=== PATIENT | male | born 1940 | race Caucasian/White ===

== ENCOUNTER → 2018-05-26 13:44 | Outpatient (CLI) | payer MEDICARE, SELFPAY ==
--- NOTE | 2018-05-26 13:55 | CT_ITS ---
CT chest w con HISTORY: ITS.REASON: PULMONARY NODULE ORDERING PHYSICIAN: Subhash Grey MD PATIENT AGE: 77 years COMPARISON: None TECHNIQUE: Axial images obtained following the administration of 75 mL of Isovue 370 . Sagittal, and coronal reformatted images are also generated and reviewed. All CT scans at the facility use one or more dose reduction, viz: automated exposure control, ma/kV adjustment per patient size (including targeted exams where dose is matched to indication, i.e. head), or iterative reconstruction technique. FINDINGS: The left lobe of the thyroid gland is enlarged with heterogeneous enhancement. A nodular area is present at the isthmus measuring approximately 2.4 cm. Nodular enlargement involves the left lobe inferiorly at 3.4 cm x 4.2 cm. There are small nodules on the right. Scattered small lymph nodes present in the mediastinum and kings. Coronary artery calcifications are noted. Normal heart size. Minimal pericardial thickening anteriorly. There are scattered small nodes in the upper abdomen the celiac region. There are central lobular and paraseptal emphysematous changes. A noncalcified 6 mm nodule present in the right upper lobe. There are atelectatic or fibrotic changes in the right lung base. There is mild diffuse bronchial thickening. There is an irregular opacity in the left apex contiguous with the pleural surface and have a somewhat flat-like appearance which may be due to a pulmonary scar measuring up to 15 mm x 16 mm x 6 mm. Other area of scarring is present in the left upper lobe posteriorly. A calcified granulomas present in the left upper lobe. There are degenerative changes in the thoracic spine. No effusions. No infiltrates. IMPRESSION: 1. 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 2. 6 mm noncalcified right upper lobe nodule. There is evidence of old granulomatous disease 3. 15 mm irregular opacity in the left upper lobe which may be due to an area of scarring. Recommend [address] follow-up to confirm stability of the above-mentioned abnormality. 4. 4 cm left thyroid nodule with other smaller thyroid nodules noted. Please see ultrasound report for further description
--- NOTE | 2018-05-26 13:55 | US_ITS ---
US thyroid HISTORY: Follow-up thyroid nodule/goiter ITS.REASON: THYROID NODULE ORDERING PHYSICIAN: Subhash Grey MD PATIENT AGE: 77 years Comparison: 03/17/2013 FINDINGS: The right lobe measures 5 x 2.3 x 2.3 cm. 16 mm x 13 mm hypoechoic to isoechoic nodule with small cystic areas upper pole well-circumscribed. Unchanged 9 mm complex cystic nodule mid polar region unchanged. Just anterior to this is a 8 mm cystic nodule unchanged. Solid 22 x 16 mm isoechoic nodule in the lower pole unchanged The left lobe measures 5.7 x 3.3 x 2.7 cm Isoechoic 30 x 9 mm nodule upper pole unchanged 43 x 31 mm complex nodule solid with cystic component mid polar region unchanged. This would correspond to what was called the lower pole nodule on the CT scan. No new nodules evident. IMPRESSION: Multinodular goiter overall not significantly changed
== END ==
PROVIDERS: Family Provider Internal Medicine Adolescent Medicine; PCP Internal Medicine Adolescent Medicine; Visit Provider Internal Medicine Adolescent Medicine
DX: R91.1 Solitary pulmonary nodule (principal); E04.1 Nontoxic single thyroid nodule
CPT/HCPCS: 71260; 76536; Q9967

== ENCOUNTER → 2018-11-29 12:51 | Outpatient (CLI) | payer MEDICARE, SELFPAY ==
--- NOTE | 2018-11-29 13:08 | CT_ITS ---
CT chest w con HISTORY: Cough, former smoker, follow-up pulmonary nodule, COPD ITS.REASON: PULMONARY NODULES ORDERING PHYSICIAN: Subhash Grey MD PATIENT AGE: 78 years COMPARISON: 05/26/2018 TECHNIQUE: Axial images obtained following the administration of 75 mL of Optiray 350. Sagittal, and coronal reformatted images are also generated and reviewed. All CT scans at the facility use one or more dose reduction, viz: automated exposure control, ma/kV adjustment per patient size (including targeted exams where dose is matched to indication, i.e. head), or iterative reconstruction technique. FINDINGS: Left lobe of the thyroid gland is enlarged with decreased attenuation similar to the previous exam. Is mild tracheal shift to the right. There is low density in the left thyroid gland measures 3 x 2 cm in is consistent with a thyroid mass. A smaller lesion is present in the left lobe inferiorly and medially at 12 mm. Previous ultrasound showed bilateral thyroid nodules on 03/17/2013. No adenopathy apparent. There are coronary artery calcifications with normal heart size. No pericardial effusion. Centrilobular emphysema with scattered scarring noted. There is a stable 5 mm noncalcified nodule right upper lobe centrally. Atelectatic or fibrotic changes are present in the right lung base. Irregular parenchymal opacity once again noted in the left upper lobe posteriorly. This does not appear significantly changed and may represent an area of parenchymal fibrosis. Calcified granuloma is present in the left upper lobe posteriorly. No new nodules are evident. Upper abdominal images show a isodense lesion in the left hepatic lobe at 1 cm which appears stable. Stable left adrenal nodule is noted at 14 mm. There are degenerative changes in the thoracic spine with no acute bony anomalies evident. IMPRESSION: 1. Overall no significant change with no acute finding. 2. Stable left upper lobe irregular parenchymal opacity which may be due to pulmonary scar. Twelve-month follow-up recommended. Stable 4 mm right upper lobe nodule. 3. No change left thyroid mass with thyroid enlargement 4. Centrilobular emphysema/COPD
== END ==
PROVIDERS: PCP Internal Medicine Adolescent Medicine; Visit Provider Internal Medicine Adolescent Medicine
DX: R91.1 Solitary pulmonary nodule (principal)
CPT/HCPCS: 71260; Q9967

== ENCOUNTER → 2020-03-13 13:27 | Outpatient (CLI) | payer MEDICARE, SELFPAY ==
--- NOTE | 2020-03-13 13:41 | XR_ITS ---
PROCEDURE: XR SACROILIAC JOINT BI MIN 3V CLINICAL INDICATION: L HIP PAIN COMPARISON: No exams were available for comparison FINDINGS: The SI joints have an unremarkable appearance. No fusion or significant osteoarthritic change or lytic change evident. There is degenerative disc disease in the lower lumbar spine which may be better evaluated with lumbar spine study. IMPRESSION: Negative SI joints Dictated by: Lele Silvestre MD 03/13/2020 14:58 Electronically signed by Lele Silvestre MD in [facility] 03/13/2020 14:58
--- NOTE | 2020-03-13 13:43 | XR_ITS ---
PROCEDURE: XR HIP LT 2-3V W/PELVIS CLINICAL INDICATION: L HIP PAIN Left hip pain COMPARISON: No exams were available for comparison FINDINGS: No fracture or dislocation. No lytic or blastic change. There are mild osteoarthritic changes of the hips IMPRESSION: Mild osteoarthritis, no acute finding Dictated by: Lele Silvestre MD 03/13/2020 14:53 Electronically signed by Lele Silvestre MD in [facility] 03/13/2020 14:53
--- NOTE | 2020-03-13 13:43 | XR_ITS ---
PROCEDURE: XR CHEST 2V CLINICAL HISTORY: COUGH Former smoker COMPARISON: CHESTW CT chest w con from 11/29/2018 FINDINGS: Borderline emphysematous changes seen with mild hyperexpansion of the lung collins. There is minimal apical pleural scarring left side which was seen on the previous CT scan of the chest 11/29/2018. The lung collins otherwise are clear of active infiltrate. There is a stable calcified granuloma left midlung field. Cardiac size is normal and vascularity is normal and there is no pleural fluid. There are mild multilevel degenerate changes of the lower thoracic spine. IMPRESSION: Borderline COPD, no acute chest pathology noted Dictated by: Dr. Brooks Elizalde MD 03/13/2020 14:[address] Brooks Elizalde MD in [facility] 03/13/2020 14:26
[2020-03-13 14:13] LABS: Basophils # 0.1 K/mm3 (0-0.2); Eosinophils # 0.4 K/mm3 (0.0-0.4); Eosinophils % 4.6 % (0.1-12.0); Hematocrit 36.8 % (42.0-52.0); Hemoglobin 13.1 g/dL (14.1-18.0); Lymphocytes # 1.8 K/mm3 (0.7-4.5); Lymphocytes % 19.8 % (10-50); Mean Corpuscular HGB Conc 35.6 g/dL (31.8-35.4); Mean Corpuscular Volume 87.1 fl (80-94); Monocytes # 0.8 K/mm3 (0.1-1.0); Monocytes % 8.2 % (1.7-9.3); Neutrophils # 6.1 K/mm3 (1.8-7.8); Neutrophils % 66.5 % (37.0-80.0); Platelet Count 218 K/mm3 (142-424); Red Blood Count 4.23 M/mm3 (4.60-6.20); Red Cell Distribution Width 14.3 % (11.5-17.5); White Blood Count 9.2 K/mm3 (4.8-10.8)
[2020-03-13 14:45] LABS: Alanine Aminotransferase 25 U/L (12-78); Albumin Level 4.2 g/dl (3.5-5.0); Albumin/Globulin Ratio 1.6 (1.1-1.8); Alkaline Phosphatase 95 U/L (38-126); Aspartate Amino Transferase 17 U/L (17-59); Bilirubin,Total 0.5 mg/dl (0.2-1.3); Blood Urea Nitrogen 24 mg/dl (9-20); Calcium 9.8 mg/dl (8.4-10.2); Carbon Dioxide 29 mmol/L (22.0-30.0); Chloride 101 mmol/L (98-107); Estimated Glomerular Filt Rate 94 ml/min (>60); GFR (African American) 113 ML/MIN (>60); Globulin 2.6 g/dL (1.3-3.2); Glucose 121 mg/dl (74-100); Sodium 140 mmol/L (136-145); Total Protein,Serum 6.8 g/dl (6.3-8.2)
[2020-03-13 14:50] LABS: Erythrocyte Sedimentation Rate 27 mm/hr (0-20)
[2020-03-13 17:14] LABS: Hemoglobin A1C 8.6 % (4.0-6.0)
== END ==
PROVIDERS: Visit Provider Internal Medicine Adolescent Medicine
DX: E11.9 Type 2 diabetes mellitus without complications (principal); R05 Cough; M25.552 Pain in left hip
CPT/HCPCS: 36415; 71046; 72202; 73502; 80053; 83036; 85025; 85651

== ENCOUNTER → 2020-03-23 12:39 | Outpatient (CLI) | payer MEDICARE, SELFPAY ==
[2020-03-23 14:50] LABS: Free Thyroxine Index 3.7 ug/dL (5.93-13.13); T4 (Thyroxine) 10.2 ug/dl (5.53-11.0); Triiodothryronine (T3) Uptake 36 % (23.5-40.5)
[2020-03-23 15:04] LABS: Thyroid Stimulating Hormone < 0.02 uIU/mL (0.465-4.68)
[2020-03-24 06:22] LABS: Thyroid Peroxidase Antibodies <9 IU/mL (0-34)
== END ==
PROVIDERS: Visit Provider Internal Medicine Adolescent Medicine
DX: E04.2 Nontoxic multinodular goiter (principal)
CPT/HCPCS: 36415; 84436; 84443; 84479; 86376

== ENCOUNTER 2020-05-07 13:00 | Outpatient (RCR) | payer MEDICARE, SELFPAY ==
--- NOTE | 2020-04-02 14:27 | HMH.PTOPEV ---
PT Outpatient Evaluation Rehab PT Outpatient Evaluation Start: 04/02/20 14:03 Freq: Status: Active Protocol: Document 04/02/20 14:03 DUARTEDARRIN (Rec: 04/02/20 14:27 PDESEROUX [id number]) Electronically Signed By Quentin Mccormick, PT 04/02/20 14:03 Outpatient Therapy Subjective History Subjective History Pt. is a 79 year old male who presents to outpatient PT clinic w/ chronic and activity dependent LOB posteriorly of insidious onset ~1 year ago. Pt. reports a lot of the times I feel like I'm going to fall backwards. Pt. reports symptoms worsening w/ immediate standing from a seated position and ambulating inclines. Pt. also reports history of LLE greater trochanter P! w/ symptoms relief post Cortisone inj. Pt. also reports bilateral knee P !, but states that's been going on for years. Pt. RTMD 04/17/20. Pt. denies symptoms of dizziness/fainting/black out w/ LOB onset. Current medications include Lisinopril , Metformin, Atorvastatin, Levemir, and Soliqua. PMH includes Hyperthyroidism, Type II Diabetes, COPD, and a Herniorrhapy. Chief Complaint Pain,Other,Decreased Coordination Symptom Type Other Symptoms Relieved By Rest/Positioning Symptoms Aggravated By Standing,Walking Prior Functional Limitations None Current Functional Limitations Standing,Walking,Stairs, Balance Symptom Description Activity Dependent Level of pain today (0-10) 0 Pain scale - at its best (0-10) 0 Pain scale - at its worst (0-10) 6 Hip/Knee Eval Palpation Tenderness left Knee Palpation Overall Comment grade +TTP LLE greater trochanter/piriformis Hip Palpation Findings Tenderness MMT bilateral Hip Flexion Strength Grade 4 Good Hip Abduction Strength Grade 4- Good- Hip Adduction Strength Grade 4- Good- Hip Extension Strength Grade 4- Good- Gluteus Trevor Strength Grade 4- Good- Hip External Rotation
== END 2020-05-07 14:39 | disposition home or self-care (01) ==
LOC: PT.CARL 13:00
PROVIDERS: PCP Internal Medicine Adolescent Medicine; Visit Provider Internal Medicine Adolescent Medicine
DX: R27.0 Ataxia, unspecified (principal)
CPT/HCPCS: 97110; 97112; 97163

== ENCOUNTER 2021-02-03 18:59 | Inpatient (IN) | payer MEDICARE, SELFPAY ==
[2021-02-03] VITALS (9 sets, daily range): BP systolic 108–147; BP diastolic 54–77; PULSE 81–99; RESP 16–18; TEMP 37.1–37.6; O2SAT 85–98; BMI 24.4; BMI 24.1
--- NOTE | 2021-02-03 19:18 | CT_ITS ---
PROCEDURE INFORMATION: Exam: CT Abdomen And Pelvis With Contrast Exam date and time: 02/03/2021 7:18 PM Age: 80 years old Clinical indication: Patient HX: Coffee ground emesis. TECHNIQUE: Imaging protocol: Computed tomography of the abdomen and pelvis with contrast. Radiation optimization: All CT scans at this facility use at least one of these dose optimization techniques: automated exposure control; mA and/or kV adjustment per patient size (includes targeted exams where dose is matched to clinical indication); or iterative reconstruction. Contrast material: ISOVUE; Contrast volume: 75 ml; Contrast route: IV; COMPARISON: No relevant prior studies available. FINDINGS: Lungs: Scarring/atelectasis at the lung bases without acute findings. Mediastinal space: A small hiatal hernia is present. Liver: There is enlargement of the liver, measuring 18.5 cm.There is a diffuse decrease in hepatic parenchymal density, consistent with fatty infiltration. Scattered hypodense subcentimeter liver lesions are too small to characterize but most probably benign representing small cysts or hemangiomas. The liver is otherwise unremarkable. Gallbladder and bile ducts: Multiple calcified gallstones are present. There is no evidence of biliary ductal dilation. Pancreas: Normal. No ductal dilation. Spleen: Normal. No splenomegaly. Adrenal glands: 1.5 cm left adrenal nodule statistically represents an adenoma. Adrenal glands are otherwise unremarkable. Kidneys and ureters: Subcentimeter right renal hypodense lesions are too small to characterize but most probably benign representing cysts. The right kidney is otherwise unremarkable. There is a 4.5 cm x 3.9 cm benign appearing fluid collection in the posterior left pararenal space (image 60 series 3 and image 86 series 602) which in some segments appears to be in continuity with the left kidney. This may represent an exophytic left renal cyst versus a left perirenal cyst. Nevertheless, it appears benign and may be followed with nonemergent ultrasound.The left kidney is otherwise unremarkable. The ureters are normal. Stomach and bowel: There are multiple fat density lesions seen throughout the colon, measuring up to 2 cm. I am unclear if these are related to submucosal lipomas versus fecal material. The colon appears otherwise unremarkable. No bowel obstruction or significant bowel wall thickening. Appendix: No evidence of appendicitis. Intraperitoneal space: Unremarkable. No free air. No significant fluid collection. Vasculature: The vasculature demonstrates diffuse moderate atherosclerotic calcification. Lymph nodes: Unremarkable. No enlarged lymph nodes. Urinary bladder: Mild urinary bladder wall thickening. Urinary bladder is otherwise unremarkable. Reproductive: The prostate demonstrates marked nonspecific enlargement. The seminal vesicles are normal. Bones/joints: No acute skeletal pathology. Moderate multilevel degenerative changes of the spine, as manifested by multilevel anterior osteophytes and multilevel decrease in intervertebral disc space. Soft tissues: There is a nonobstructing left inguinal hernia. There is a nonobstructing right inguinal hernia. IMPRESSION: 1. Mild urinary bladder wall thickening may be related to: Mild cystitis versus sequela of presumed partial bladder outlet obstruction, due to severe prostatomegaly. 2. No discrete findings to explain the patient's symptoms. 3. Incidental findings as detailed above. COMMENTS: Consistent with the [employer]'s Incidental Findings Committee white paper (J Am Onur Radiol 2018): Any incidental renal lesion less than
[2021-02-03 19:28] LABS: Basophils # 0.1 K/mm3 (0-0.2); Basophils % 0.5 % (0.1-2.0); Eosinophils # 0.1 K/mm3 (0.0-0.4); Eosinophils % 0.4 % (0.1-12.0); Hematocrit 36.3 % (42.0-52.0); Hemoglobin 12.7 g/dL (14.1-18.0); Lymphocytes # 0.4 K/mm3 (0.7-4.5); Lymphocytes % 1.5 % (10-50); Mean Corpuscular HGB Conc 34.8 g/dL (31.8-35.4); Mean Corpuscular Hemoglobin 30.3 pg (27.0-31.2); Mean Corpuscular Volume 87.1 fl (80-94); Mean Platelet Volume 7.3 fl (7.4-10.4); Monocytes # 0.9 K/mm3 (0.1-1.0); Monocytes % 3.6 % (1.7-9.3); Neutrophils # 23.4 K/mm3 (1.8-7.8); Platelet Count 359 K/mm3 (142-424); Red Blood Count 4.17 M/mm3 (4.60-6.20); Red Cell Distribution Width 14.3 % (11.5-17.5)
[2021-02-03 19:36] LABS: White Blood Count 24.9 K/mm3 (4.8-10.8)
[2021-02-03 19:37] LABS: MANUAL DIFFERENTIAL MANUAL DIFFERENTIAL (MANUAL DIFF)
[2021-02-03 19:46] LABS: Alanine Aminotransferase 17 U/L (12-78); Albumin Level 3.8 g/dl (3.5-5.0); Albumin/Globulin Ratio 1.3 (1.1-1.8); Alkaline Phosphatase 121 U/L (38-126); Amylase 46 U/L (30-110); Anion Gap 12.8 mEq/L (5-15); Aspartate Amino Transferase 18 U/L (17-59); Bilirubin,Total 0.7 mg/dl (0.2-1.3); Blood Urea Nitrogen 20 mg/dl (9-20); Calcium 9.3 mg/dl (8.4-10.2); Carbon Dioxide 28 mmol/L (22.0-30.0); Chloride 102 mmol/L (98-107); Creatinine Clearance Estimated 70 mL/min (50-200); Estimated Glomerular Filt Rate 93 ml/min (>60); GFR (African American) 113 ML/MIN (>60); Glucose 203 mg/dl (74-100); Lipase 30 U/L (23-300); Potassium 3.8 mmoL/L (3.5-5.1); Sodium 139 mmol/L (136-145); Total Protein,Serum 6.8 g/dl (6.3-8.2)
[2021-02-03 19:51] LABS: C-Reactive Protein 24.2 mg/L (0-4)
[2021-02-03 20:05] LABS: Procalcitonin 3.83 ng/mL (0.0-2.0)
[2021-02-03 20:08] LABS: Lymphocytes % 2 % (10-50); Monocytes % 4 % (2-9); Neutrophils % 93 % (42-76); RBC Morphology Normal; Total Cells Counted 100
[2021-02-03 20:09] LABS: Platelet Estimate Normal
--- NOTE | 2021-02-03 20:37 | HMH.EDNVD ---
ED Disposition Clinical Impression: SIRS (systemic inflammatory response syndrome), UGIB (upper gastrointestinal bleed), COVID-19 Osteomyelitis Qualifiers: Osteomyelitis type: unspecified type Osteomyelitis location: foot Laterality: left Qualified Code(s): M86.9 - Osteomyelitis, unspecified Diabetes mellitus Qualifiers: Diabetes mellitus type: type 2 Diabetes mellitus long-term insulin use: unspecified terminologist insulin use status Diabetes mellitus complication status: with other specified complication Qualified Code(s): E11.69 - Type 2 diabetes mellitus with other specified complication Disposition: Admitted As Inpatient Condition on Discharge: Serious Instructions: DI for Diarrhea and Traveler's Diarrhea -- Adult, DI for Diarrhea and Traveler's Diarrhea -- Child, DI for Nausea -- Adult, DI for Nausea -- Child Referrals: Subhash Grey MD [Primary Care Provider] - - Critical Care Critical Care Time: No Attestation: On 02/03/21, the high probability of a clinically significant, sudden or life threatening deterioration of the following system(s) required my full and direct attention, intervention and personal management. The time I documented below is in addition to time spent performing reported procedures but includes the following listed in this critical care notation. Medical Decision Making - Medical Records Medical records reviewed: Yes: I reviewed the patient's medical records. - Juanc Arlos Inquiry Pt receiving controlled substance: No Vital Signs: 02/03/21 19:05 Temperature 99.6 F Temperature Source Oral Pulse Rate [Right] 99 H Respiratory Rate 18 Blood Pressure [Right Arm] 124/54 L Blood Pressure Mean [Right Arm] 77 Blood Pressure Source [Right Arm] Automatic Cuff Blood Pressure Position [Right Arm] Supine 02 Sat by Pulse Oximetry 93 L Oxygen Delivery Method Room Air - Lab Data Lab results reviewed: Yes: I reviewed the patient's lab results. Lab Results 02/03/21 19:02: WBC 24.9 H*, RBC 4.17 L, Hgb 12.7 L, Hct 36.3 L, MCV 87.1, MCH 30.3, MCHC 34.8, RDW 14.3, Plt Count 359, MPV 7.3 L, Neut % (Auto) 94.0 H, Lymph % (Auto) 1.5 L, Charlton % (Auto) 3.6, Eos % (Auto) 0.4, Baso % (Auto) 0.5, Neut # (Auto) 23.4 H, Lymph # (Auto) 0.4 L, Charlton # (Auto) 0.9, Eos # (Auto) 0.1, Baso # (Auto) 0.1, Total Counted 100, Neutrophils % (Manual) 93 H, Band Neutrophils % 1.0, Lymphocytes % (Manual) 2 L, Monocytes % (Manual) 4, Platelet Estimate Normal, RBC Morphology Normal, ESR 92 H 02/03/21 19:02: Sodium 139, Potassium 3.8, Chloride 102, Carbon Dioxide 28, Anion Gap 12.8, BUN 20, Creatinine 0.80, Estimated Creat Clear 70, Estimated GFR 93, Est GFR ( Amer) 113, Glucose 203 H, Calcium 9.3, Total Bilirubin 0.7, AST 18, ALT 17, Alkaline Phosphatase 121, C-Reactive Protein 24.2 H, Total Protein 6.8, Albumin 3.8, Globulin 3.0, Albumin/Globulin Ratio 1.3, Amylase 46, Lipase 30, Procalcitonin 3.83 H 02/03/21 20:22: Lactate 1.9 02/03/21 21:10: Stool Occult Blood Negative Result diagrams: 02/03/21 19:02 02/03/21 19:02 Orders (Tests/Meds): ED MEDICATIONS Generic Name Dose Route Start Last Admin Trade Name Freq PRN Reason Stop Dose Admin Sodium Chloride 1,000 mls @ 999 mls/hr 02/03/21 19:30 02/03/21 19:22 Sod Chlor 0.9% 1000ml Bag IV 02/03/21 20:30 999 mls/hr .Q1H1M MECHE Administration Vancomycin HCl 2,000 mg/ 250 mls @ 125 mls/hr 02/03/21 21:22 02/03/21 21:58 Sodium Chloride IV 02/03/21 23:21 125 mls/hr ONCE ONE Administration Protocol Vancomycin HCl 1,500 mg/ 250 mls @ 125 mls/hr 02/04/21 14:00 Sodium Chloride IV 02/18/21 13:59 DIRECTED MECHE Protocol Discontinued Medications Generic Name Dose Route Start Last Admin Trade Name Freq PRN Reason Stop Dose Admin Pantoprazole Sodium 80 mg/ 100 mls @ 100 mls/hr 02/03/21 19:18 02/03/21 19:22 Sodium Chloride IV 02/03/21 20:17 100 mls/hr ONCE ONE Administration Iopamidol 75 ml 02/03/21 20:11 02/03/21 20:12
[2021-02-03 20:53] LABS: Lactic Acid 1.9 mmol/L (0.7-2.1)
[2021-02-03 20:53] LABS: Erythrocyte Sedimentation Rate 92 mm/hr (0-20)
--- NOTE | 2021-02-03 20:56 | XR_ITS ---
PROCEDURE INFORMATION: Exam: XR Chest Exam date and time: 02/03/2021 8:56 PM Age: 80 years old Clinical indication: Shortness of breath; Additional info: SOB TECHNIQUE: Imaging protocol: XR of the chest. Views: 1 view. COMPARISON: No relevant prior studies available. FINDINGS: Airway: The airways are patent. Lungs: No acute interstitial or airspace disease. There are multiple punctate pulmonary parenchymal calcifications, consistent with remote granulomatous organism exposure. Pleural spaces: There are no pleural effusions present. There is no evidence of pneumothorax. Heart/Mediastinum: Heart is of normal size and morphology. Bones/joints: No acute skeletal abnormality or aggressive osseous lesion. IMPRESSION: Negative for acute thoracic pathology.
--- NOTE | 2021-02-03 21:15 | CT_ITS ---
PROCEDURE INFORMATION: Exam: CT Left Lower Extremity Without Contrast, Foot Exam date and time: 02/03/2021 9:15 PM Age: 80 years old Clinical indication: Other: Sore on big toe; Patient HX: Sore on left big toe TECHNIQUE: Imaging protocol: CT of the Left lower extremity without contrast was performed. Exam focused on the foot. 3D rendering (Not supervised by radiologist): MIP and/or 3D reconstructed images were created by the technologist. Radiation optimization: All CT scans at this facility use at least one of these dose optimization techniques: automated exposure control; mA and/or kV adjustment per patient size (includes targeted exams where dose is matched to clinical indication); or iterative reconstruction. COMPARISON: No relevant prior studies available. FINDINGS: Bones/joints: Calcaneal spurring. There is severe lucency and destruction involving the 1st distal phalanx consistent with severe osteomyelitis and pathologic fracture. There is overlying severe soft tissue swelling and ulceration and soft tissue gas. Chronic fracture involving the 5th metatarsal. Soft tissues: There is severe soft tissue swelling diffusely. Extensive skin thickening. IMPRESSION: Severe lucency and destruction involving the 1st distal phalanx consistent with severe osteomyelitis and pathologic fracture. Overlying soft tissue swelling, ulceration and soft tissue gas.
[2021-02-03 21:21] LABS: Occult Blood,Stool Negative (Negative)
--- NOTE | 2021-02-03 21:23 | PC.NURSE ---
spoke to regan in [place]. he advised to give 2g loading dose of vancromycin and then 1500mg every 18hrs.
--- NOTE | 2021-02-03 22:11 | PC.NURSE ---
Lab notified that pt was positive for Covid, sign placed on door and notified pt's spouse and family notified to quarantine.
--- NOTE | 2021-02-03 22:26 | PC.NURSE ---
Ananya order per Pharmacy 1500mg Q18 hours
--- NOTE | 2021-02-03 22:35 | PC.NURSE ---
Password will be [email or web address]
--- NOTE | 2021-02-03 23:26 | PC.NURSE ---
patient up to floor via stretcher.
[2021-02-04] VITALS (18 sets, daily range): BP systolic 104–132; BP diastolic 47–71; PULSE 66–84; RESP 14–18; TEMP 36.2–36.9; O2SAT 94–99; BMI 24.1
[2021-02-04 05:43] LABS: POC Glucose,Bedside 206 (70-110)
[2021-02-04 06:21] LABS: Anion Gap 8.3 mEq/L (5-15); Blood Urea Nitrogen 20 mg/dl (9-20); Calcium 8.4 mg/dl (8.4-10.2); Carbon Dioxide 29 mmol/L (22.0-30.0); Chloride 105 mmol/L (98-107); Creatinine Clearance Estimated 70 mL/min (50-200); Estimated Glomerular Filt Rate 93 ml/min (>60); GFR (African American) 113 ML/MIN (>60); Glucose 200 mg/dl (74-100); Magnesium 1.3 mg/dl (1.6-2.3); Potassium 4.3 mmoL/L (3.5-5.1); Sodium 138 mmol/L (136-145)
[2021-02-04 06:26] LABS: Basophils # 0.1 K/mm3 (0-0.2); Basophils % 0.3 % (0.1-2.0); Eosinophils # 0.1 K/mm3 (0.0-0.4); Eosinophils % 0.2 % (0.1-12.0); Lymphocytes # 1.3 K/mm3 (0.7-4.5); Lymphocytes % 4.7 % (10-50); Mean Corpuscular HGB Conc 33.9 g/dL (31.8-35.4); Mean Corpuscular Hemoglobin 29.5 pg (27.0-31.2); Mean Platelet Volume 7.3 fl (7.4-10.4); Monocytes # 1.3 K/mm3 (0.1-1.0); Monocytes % 5.1 % (1.7-9.3); Neutrophils # 23.8 K/mm3 (1.8-7.8); Neutrophils % 89.8 % (37.0-80.0); Platelet Count 306 K/mm3 (142-424); Red Blood Count 3.66 M/mm3 (4.60-6.20); Red Cell Distribution Width 14.2 % (11.5-17.5); White Blood Count 26.5 K/mm3 (4.8-10.8)
[2021-02-04 06:28] LABS: Hematocrit 31.8 % (42.0-52.0); Hemoglobin 10.8 g/dL (14.1-18.0); MANUAL DIFFERENTIAL MANUAL DIFFERENTIAL (MANUAL DIFF)
--- NOTE | 2021-02-04 07:32 | HMH.PHAVTE ---
[facility] [place] Pharmacy VTE Monitoring - Patient Demographics Admission date: 02/03/21 Report Date: 02/04/21 Time: 07:32 Allergies/Adverse Reactions: Patient Allergies No Known Allergies Allergy (Unverified 09/22/17 14:55) Height: 1.83 m Weight: 80.824 kg Patient Problems: Current Active Problems Osteomyelitis (Acute) SIRS (systemic inflammatory response syndrome) (Acute) UGIB (upper gastrointestinal bleed) (Acute) COVID-19 (Acute) Diabetes mellitus (Acute) - VTE Risk Labs: VTE Related Lab Results Hgb 10.8 g/dL (14.1-18.0) L D 02/04/21 06:04 Hct 31.8 % (42.0-52.0) L 02/04/21 06:04 Plt Count 306 K/mm3 (142-424) 02/04/21 06:04 BUN 20 mg/dl (9-20) 02/04/21 06:04 Creatinine 0.80 mg/dl (0.66-1.25) 02/04/21 06:04 Estimated Creat Clear 70 mL/min (50-200) 02/04/21 06:04 Clinical Trial Participant: No - Prophylaxis VTE Prophylaxis Ordered?: Yes Types of VTE Prophylaxis: TEDS Knee High
--- NOTE | 2021-02-04 07:35 | HMH.PHAINT ---
home medication list verified using list from [facility]
--- NOTE | 2021-02-04 08:00 | CA_ITS ---
APPROVED REPORT EXAM: Comprehensive 2D, Doppler, and color-flow Echocardiogram Rock Breaker: Karli Munguia, RCS, RVS Ht: 6 ft 0 in Wt: 180lbs BSA: 2.04 BP: 124/54 mmHg Indications: covid-19+ , hx-covid vaccination, osteomyelitis lt toe, Pre-OP 2D Dimensions IVSd 1.17 cm LVEF (Visual) 55.30 % PWd 0.89 cm LA Volume 44.30 mL LVDd 5.08 cm LA Volume Index 21.70 mL/m2 (M/F) 16-34 LVDs 3.61 cm Aortic Root 3.28 cm Left Atrium 3.45 cm LVOT 1.92 cm (M/F) 1.5-2.5 M-Mode Dimensions EPSs 0.49 cm TAPSE 2.21 (<1.7) LV Diastology E Decel Time 183.00 (160-240 msec) E/A Ratio 0.96 MED E' 10.40 (< 7 cm/sec) MED A' 10.50 cm/s E'/MED E' Ratio 8.34 (>14) LAT E' 10.20 (<10 cm/sec) LAT A' 10.00 cm/s E/LAT E' Ratio 8.50 (>14) Aortic Valve LVOT Max 103.00 (70-110 cm/s) LVOT VTI 25.13 cm AoV Peak Lei. 143.00 (50-130 cm/s) AO Peak GR. 8.20 mmHg AO Mean GR. 5.10 (<5 mmHg) AO VTI 34.44 (18-25 cm) JULES (VTI) 2.11 (2.5-4.5 cm2) Mitral Valve MV E Max Lei. 87.00 (40-130 cm/s) MV A Velocity 90.00 (40-130 cm/s) E/A Ratio 0.96 MV Decel. Time 183.00 (160-240 ms) MV PHT 54.00 ms Pulmonary Valve PV Peak Velocity 74.00 (50-150 cm/s) Tricuspid Valve TR P. Velocity 182.00 cm/s RAP Estimate 10.00 mmHg RVSP 23.20 mmHg Left Ventricle Left atrium is normal size, left ventricle is normal size, there is no concentric left ventricular hypertrophy, visually estimated ejection fraction 55% with no regional wall motion abnormality, diastolic parameters are within normal range. Right Ventricle Right atrium and right ventricle are normal size and contractility. Aortic Valve Aortic valve is minimally thickened and fibrosed, there is no aortic stenosis or aortic insufficiency. Mitral Valve Mitral valve grossly normal, there is trace mitral regurgitation. Tricuspid Valve Tricuspid valve grossly normal, there is trace tricuspid regurgitation, tricuspid regurgitation jet velocity is inadequate for calculation of the right ventricular systolic pressure. Pulmonic Valve Pulmonic valve is poorly visualized. Great Vessels Aortic root is normal size. Pericardium No significant pericardial effusion noted. Conclusion 1. Normal left ventricular size, preserved left ventricular systolic function, visually estimated ejection fraction 55% with no regional wall motion abnormality, diastolic parameters are within normal range. 2. Trace mitral and tricuspid regurgitation. 3. No significant pericardial effusion noted. Electronically signed by : Kush Adler, 02/04/2021 13:05:35
[2021-02-04 08:04] LABS: Eosinophils % 1 % (0-3); Lymphocytes % 11 % (10-50); Monocytes % 1 % (2-9); Neutrophils % 85 % (42-76); Platelet Estimate Normal; RBC Morphology Normal; Total Cells Counted 100
--- NOTE | 2021-02-04 08:07 | US_ITS ---
APPROVED REPORT Exam Type: Ankle to Brachial Index Right Of Way Clearer: RT Chris(R) Indications Claudication: Non-healing Ulcer: Rest Pain: History of Smoking lt great toe gangrene Risk Factors Hypertension Hyperlipidemia Diabetes History of Smoking Pressures/Indices Right Indices Left Indices Brachial 109.00 mmHg Brachial 110.00 mmHg Low Thigh 145.00 mmHg 1.32 Low Thigh 130.00 mmHg 1.18 Calf 110.00 mmHg 1.00 Calf 117.00 mmHg 1.06 Ankle(PT) 117.00 mmHg 1.06 Ankle(PT) 119.00 mmHg 1.08 Ankle(DP) 98.00 mmHg 0.89 Ankle(DP) 113.00 mmHg 1.03 Digit 84.00 mmHg 0.76 Digit 64.00 mmHg 0.58 Findings RT RELL=1.1 LT RELL=1.1 RT TBI=0.8 LT TBI=0.6 Normal pulses RLE Dampened/diminished pulses LLE Normal waveforms bilaterally Conclusion RT RELL=1.1 LT RELL=1.1 RT TBI=0.8 LT TBI=0.6 Normal pulses RLE Dampened/diminished pulses LLE Normal waveforms bilaterally Normal appearing resting noninvasive lower extremity arterial study. Electronically signed by : Lele Silvesrte MD 02/04/2021 17:10:00
--- NOTE | 2021-02-04 08:11 | HMH.HP ---
*Admission Date: 02/03/21 *Chief complaint: Fall, nausea vomiting/toe infection *History of present illness: 80-year-old white male with hyperthyroidism, diabetes, type II but insulin requiring, who has been feeling poorly over the past couple of days, and noticed 3 or 4 days ago that he had an ulcer and scab on the bottom of the left great toe. Late evening yesterday he had an episode where he fell after being very nauseated and vomited at his home, was unable to be picked up by his family and was brought to the emergency department here. Was found to have a severe left great toe ulcer which proved to have osteomyelitis in the bone based on CT scan and x-ray criteria, also met sepsis criteria with elevated leukocytosis and his organ dysfunction and source of infection. Was admitted to hospital for IV antibiotics, podiatry consultation and further evaluation. [facility] History I have reviewed the patient's past medical history: Yes Medical History: Reports:: Atherosclerotic Heart Disease, Diabetes Mellitus Type 1, Hyperlipidemia, Hypertension, Renal Insufficiency Denies:: Diabetes Mellitus Type 2 *Have you ever received a pneumonia vaccine?: No *Have you received a flu vaccine this season?: No Other Medical History: Reports: Thyroid Disease (Autoimmune hypothyroidism.) - *Social History Last grade of school completed: High school graduate Smoking Status: Former smoker Alcohol Intake: never Substance Use Type: denies use *Occupational Status:: retired *Travel in the last 8 weeks: None Family Hx:: No significant family history Review of Systems - Review of Systems Review of systems:: pertinent systems reviewed and negative unless documented below Denies cardiac or pulmonary symptoms except for weakness. GI symptoms noted have resolved. Globally just feels weak. No focal areas of pain. Otherwise 10 point review of systems negative - *Neurologic Denies headache(s), Denies seizure-like activity Meds Home Medications Medication Instructions Recorded Confirmed Type Atorvastatin Calcium [Lipitor 80mg 80 mg PO HS 02/03/21 02/03/21 History Tablet*] Escitalopram Oxalate 10 mg PO DAILY 02/03/21 02/03/21 History Insulin Detemir [Levemir 40 units SQ HS 02/03/21 02/03/21 History 100units/mL 3mL flexpen] Insulin Glargine/Lixisenatide 20 units SQ DAILY 02/03/21 02/03/21 History [Soliqua 100 Unit-33 Mcg/ml Pen] Metformin HCl [Metformin 1000mg 1,000 mg PO BID 02/03/21 02/03/21 History Tablets] lisinopriL [Lisinopril] 10 mg PO DAILY 02/03/21 02/03/21 History propylthiouraciL [Propylthiouracil] 50 mg PO TID 02/03/21 02/03/21 History Allergies Allergy/AdvReac Type Severity Reaction Status Date / Time No Known Allergies Allergy Unverified 09/22/17 14:55 Exam Vital signs and Labs for Last 24 Hours: Temp Pulse Resp BP Pulse Ox 97.2 F L 69 16 123/71 99 02/04/21 03:40 02/04/21 03:40 02/04/21 03:40 02/04/21 03:40 02/04/21 03:40 Laboratory Results - last 24 hr 02/03/21 19:02: WBC 24.9 H*, RBC 4.17 L, Hgb 12.7 L, Hct 36.3 L, MCV 87.1, MCH 30.3, MCHC 34.8, RDW 14.3, Plt Count 359, MPV 7.3 L, Neut % (Auto) 94.0 H, Lymph % (Auto) 1.5 L, [place] % (Auto) 3.6, Eos % (Auto) 0.4, Baso % (Auto) 0.5, Neut # (Auto) 23.4 H, Lymph # (Auto) 0.4 L, [place] # (Auto) 0.9, Eos # (Auto) 0.1, Baso # (Auto) 0.1, Total Counted 100, Neutrophils % (Manual) 93 H, Band Neutrophils % 1.0, Lymphocytes % (Manual) 2 L, Monocytes % (Manual) 4, Platelet Estimate Normal, RBC Morphology Normal, ESR 92 H 02/03/21 19:02: Sodium 139, Potassium 3.8, Chloride 102, Carbon Dioxide 28, Anion Gap 12.8, BUN 20, Creatinine 0.80, Estimated Creat Clear 70, Estimated GFR 93, Est GFR ( Amer) 113, Glucose 203 H, Calcium 9.3, Total Bilirubin 0.7, AST 18, ALT 17, Alkaline Phosphatase 121, C-Reactive Protein 24.2 H, Total Protein 6.8, Albumin 3.8, Globulin 3.0, Albumin/Globulin Ratio 1.3, Amylase 46, Lipase 30, Procalcitonin 3.83 H 02/03/21 20:22: Lactate 1
--- NOTE | 2021-02-04 08:14 | HMH.ORTHOCON ---
*Admission Date: 02/03/21 *Reason for consult:: Left foot gas, osteomyelitis *History of present illness: Per ER: 80-year-old white male with hyperthyroidism, diabetes, type II but insulin requiring, who has been feeling poorly over the past couple of days, and noticed 3 or 4 days ago that he had an ulcer and scab on the bottom of the left great toe. Late evening yesterday he had an episode where he fell after being very nauseated and vomited at his home, was unable to be picked up by his family and was brought to the emergency department here. Was found to have a severe left great toe ulcer which proved to have osteomyelitis in the bone based on CT scan and x-ray criteria, also met sepsis criteria with elevated leukocytosis and his organ dysfunction and source of infection. Was admitted to hospital for IV antibiotics, podiatry consultation and further evaluation. Patient is resting comfortably in bed without distress. Reports no pain to the foot. Does not think he has had circulation tested in the past. Denies prior history of osteomyelitis. [facility] History I have reviewed the patient's past medical history: Yes Medical History: Reports:: Diabetes Mellitus Type 1 Denies:: Diabetes Mellitus Type 2 *Have you ever received a pneumonia vaccine?: No *Have you received a flu vaccine this season?: No - *Social History Last grade of school completed: High school graduate Smoking Status: Former smoker Alcohol Intake: never *Occupational Status:: retired *Travel in the last 8 weeks: None Family Hx:: Hypertension Review of Systems - Review of Systems Review of systems:: pertinent systems reviewed and negative unless documented below - Constitutional Reports fatigue, Reports weakness, Denies chills - Eyes Denies blind spots - ENT Denies abnormal hearing - *Cardiovascular Denies chest pain, Denies shortness of breath - *Respiratory Denies shortness of breath - *Gastrointestinal Denies abdominal pain - *Genitourinary Denies difficulty urinating - *Musculoskeletal Reports muscle weakness - Integumentary/Breasts Reports hair loss, Reports dry skin, Reports skin ulcer, Reports wounds (left hallux ulcer: 0.4x0.4x1.3cm to bone) - *Neurologic Denies headache(s), Denies seizure-like activity - Psychiatric Denies abnormal sleep pattern - Endocrine Reports cold intolerance - Hematologic/Lymphatic Reports easy bruising - Allergic/Immunologic Reports GI upset with certain foods Meds Home Medications Medication Instructions Recorded Confirmed Type Atorvastatin Calcium [Lipitor 80mg 80 mg PO HS 02/03/21 02/03/21 History Tablet*] Escitalopram Oxalate 10 mg PO DAILY 02/03/21 02/03/21 History Insulin Detemir [Levemir 40 units SQ HS 02/03/21 02/03/21 History 100units/mL 3mL flexpen] Insulin Glargine/Lixisenatide 20 units SQ DAILY 02/03/21 02/03/21 History [Soliqua 100 Unit-33 Mcg/ml Pen] Metformin HCl [Metformin 1000mg 1,000 mg PO BID 02/03/21 02/03/21 History Tablets] lisinopriL [Lisinopril] 10 mg PO DAILY 02/03/21 02/03/21 History propylthiouraciL [Propylthiouracil] 50 mg PO TID 02/03/21 02/03/21 History Allergies Allergy/AdvReac Type Severity Reaction Status Date / Time No Known Allergies Allergy Unverified 09/22/17 14:55 Exam Vital signs and Labs for Last 24 Hours: Temp Pulse Resp BP Pulse Ox 97.2 F L 69 16 123/71 99 02/04/21 03:40 02/04/21 03:40 02/04/21 03:40 02/04/21 03:40 02/04/21 03:40 Laboratory Results - last 24 hr 02/03/21 19:02: WBC 24.9 H*, RBC 4.17 L, Hgb 12.7 L, Hct 36.3 L, MCV 87.1, MCH 30.3, MCHC 34.8, RDW 14.3, Plt Count 359, MPV 7.3 L, Neut % (Auto) 94.0 H, Lymph % (Auto) 1.5 L, [place] % (Auto) 3.6, Eos % (Auto) 0.4, Baso % (Auto) 0.5, Neut # (Auto) 23.4 H, Lymph # (Auto) 0.4 L, [place] # (Auto) 0.9, Eos # (Auto) 0.1, Baso # (Auto) 0.1, Total Counted 100, Neutrophils % (Manual) 93 H, Band Neutrophils % 1.0, Lymphocytes % (Manual) 2 L, Monocytes % (Manual) 4,
[2021-02-04 08:48] LABS: Coronavirus 19 IgG Antibody Positive (Negative); Coronavirus 19 IgM Antibody Negative (Negative)
[2021-02-04 08:59] LABS: Adenovirus,PCR Not Detected (NotDetected); Bordetella Pertussis Not Detected (NotDetected); Chlamydophila Pneumoniae, PCR Not Detected (NotDetected); Coronavirus 19, PCR Not Detected (NotDetected); Coronavirus 229E Not Detected (NotDetected); Coronavirus NL63 Not Detected (NotDetected); Coronavirus OC43 Not Detected (NotDetected); Coronovirus HKU1,PCR Not Detected (NotDetected); Human Metapneumovirus Not Detected (NotDetected); Influenza A, PCR Not Detected (NotDetected); Influenza AH1, 2009 Not Detected (NotDetected); Influenza AH1, PCR Not Detected (NotDetected); Influenza AH3,PCR Not Detected (NotDetected); Influenza B, PCR Not Detected (NotDetected); Mycoplasma Pneumoniae, PCR Not Detected (NotDetected); Parainfluenza 1, PCR Not Detected (NotDetected); Parainfluenza 2, PCR Not Detected (NotDetected); Parainfluenza 3, PCR Not Detected (NotDetected); Parainfluenza 4, PCR Not Detected (NotDetected); Respiratory Syncytial Virus Not Detected (NotDetected); Rhinovirus/Enterovirus Not Detected (NotDetected)
--- NOTE | 2021-02-04 09:43 | P.CONPHA_ITS ---
- Pharmacy Consult Date: 02/04/21 Time: 09:43 Referring provider: DR. RICKS Reason for Consult:: VANCOMYCIN DOSING Allergies and ADEs:: Allergies Allergy/AdvReac Type Severity Reaction Status Date / Time No Known Allergies Allergy Unverified 09/22/17 14:55 Home Medications:: Home Medications Medication Instructions Recorded Confirmed Type Atorvastatin Calcium [Lipitor 80mg 80 mg PO HS 02/03/21 02/03/21 History Tablet*] Escitalopram Oxalate 10 mg PO DAILY 02/03/21 02/03/21 History Insulin Detemir [Levemir 40 units SQ HS 02/03/21 02/03/21 History 100units/mL 3mL flexpen] Insulin Glargine/Lixisenatide 20 units SQ DAILY 02/03/21 02/03/21 History [Soliqua 100 Unit-33 Mcg/ml Pen] Metformin HCl [Metformin 1000mg 1,000 mg PO BID 02/03/21 02/03/21 History Tablets] lisinopriL [Lisinopril] 10 mg PO DAILY 02/03/21 02/03/21 History propylthiouraciL [Propylthiouracil] 50 mg PO TID 02/03/21 02/03/21 History Height: 1.83 m Weight: 80.824 kg Laboratory Results:: Laboratory Results - last 24 hr 02/03/21 19:02: WBC 24.9 H*, RBC 4.17 L, Hgb 12.7 L, Hct 36.3 L, MCV 87.1, MCH 30.3, MCHC 34.8, RDW 14.3, Plt Count 359, MPV 7.3 L, Neut % (Auto) 94.0 H, Lymph % (Auto) 1.5 L, [place] % (Auto) 3.6, Eos % (Auto) 0.4, Baso % (Auto) 0.5, Neut # (Auto) 23.4 H, Lymph # (Auto) 0.4 L, [place] # (Auto) 0.9, Eos # (Auto) 0.1, Baso # (Auto) 0.1, Total Counted 100, Neutrophils % (Manual) 93 H, Band Neutrophils % 1.0, Lymphocytes % (Manual) 2 L, Monocytes % (Manual) 4, Platelet Estimate Normal, RBC Morphology Normal, ESR 92 H 02/03/21 19:02: Sodium 139, Potassium 3.8, Chloride 102, Carbon Dioxide 28, Anion Gap 12.8, BUN 20, Creatinine 0.80, Estimated Creat Clear 70, Estimated GFR 93, Est GFR ( Amer) 113, Glucose 203 H, Calcium 9.3, Total Bilirubin 0.7, AST 18, ALT 17, Alkaline Phosphatase 121, C-Reactive Protein 24.2 H, Total Protein 6.8, Albumin 3.8, Globulin 3.0, Albumin/Globulin Ratio 1.3, Amylase 46, Lipase 30, Procalcitonin 3.83 H 02/03/21 20:22: Lactate 1.9 02/03/21 21:10: Stool Occult Blood Negative 02/04/21 05:32: POC Glucose 206 H 02/04/21 06:04: WBC 26.5 H*, RBC 3.66 L, Hgb 10.8 L D, Hct 31.8 L, MCV 87.0, MCH 29.5, MCHC 33.9, RDW 14.2, Plt Count 306, MPV 7.3 L, Neut % (Auto) 89.8 H, Lymph % (Auto) 4.7 L, [place] % (Auto) 5.1, Eos % (Auto) 0.2, Baso % (Auto) 0.3, Neut # (Auto) 23.8 H, Lymph # (Auto) 1.3, [place] # (Auto) 1.3 H, Eos # (Auto) 0.1, Baso # (Auto) 0.1, Total Counted 100, Neutrophils % (Manual) 85 H, Band Neutrophils % 2.0, Lymphocytes % (Manual) 11, Monocytes % (Manual) 1 L, Eosinophils % (Manual) 1, Platelet Estimate Normal, RBC Morphology Normal 02/04/21 06:04: Sodium 138, Potassium 4.3, Chloride 105, Carbon Dioxide 29, Anion Gap 8.3, BUN 20, Creatinine 0.80, Estimated Creat Clear 70, Estimated GFR 93, Est GFR ( Amer) 113, Glucose 200 H, Calcium 8.4, Magnesium 1.3 L 02/04/21 06:04: SARS-CoV-2 IgG Ab (Rapid) Positive A, SARS-CoV-2 IgM Ab (Rapid) Negative Medical History: Reports:: Atherosclerotic Heart Disease, Diabetes Mellitus Type 1, Hyperlipidemia, Hypertension, Renal Insufficiency Denies:: Diabetes Mellitus Type 2 Assessment and Plan - Assessment and plan all Dx Assessment and Plan for all problems:: PATIENT WAS STARTED ON VANCOMYCIN 2 GM X1 DOSE IN ER OVERNIGHT. RECOMMEND CONTINUING WITH VANCOMYCIN 1250 MG Q12H STARTING AT 0900 THIS AM. PHARMACY WILL FOLLOW DAILY AND ADJUST APPROPRIATE.
[2021-02-04 11:01] LABS: Appearance,Urine CLEAR (Clear); Bilirubin,Urine Negative (Negative); Blood, Urine TRACE-L (Negative); Color,Urine YELLOW (Yellow); Glucose,Urine (UA) Negative (Negative); Ketones,Urine Negative (Negative); Leukocyte Esterase,Urine Negative (Negative); Microscopic, Urine URINE MICROSCOPIC (MICROSCOPIC); Nitrate,Urine Negative (Negative); PH,Urine 5.5 (5.0-8.5); Protein,Urine TRACE (Negative); Urobilinogen,Urine 0.2 EU/dl (0.2)
[2021-02-04 11:36] LABS: POC Glucose,Bedside 137 (70-110)
--- NOTE | 2021-02-04 12:08 | PC.NURSE ---
Pt's temp at 0800 was 98.5, not 96.5 per Zahra Cline, SRNA
--- NOTE | 2021-02-04 12:17 | PC.NURSE ---
Pt taken out of airborne isolation
--- NOTE | 2021-02-04 15:31 | PC.NURSE ---
Pt is alert and oriented x3. Lungs are clear. He remains on 2L NC with O2 sats in the 90's. He has rested in bed the majority of the shift. He utilizes a urinal at the bedside. Urine is clear and dark zion. He is at least an assist x1 due to being unsteady on his feet. Left great toe is swollen and appears necrotic. Bilateral feet are dry and scaly. Distal pulses are a +1. is at bedside and supportive. Will continue to monitor.
--- NOTE | 2021-02-04 15:48 | PC.NURSE ---
Outpatient staff here to take patient down for surgery
--- NOTE | 2021-02-04 16:22 | P.PN_ITS ---
[facility] Anesthesia Checklist - Structural Data Admitted From: Inpatient Planned Operative Procedure/s: toe amp Consent for Planned Operative Procedure(s) Verified: Yes - Airway Assessment C-Spine Mobility Assessed: Yes TMJ Mobility Assessed: Yes Dentition: Poor Dentition - Neurological Assessment Level of Consciousness: Awake, Alert, Appropriate - Anesthesia Plan Anesthesia Risk discussed: Yes Anesthesia Plan: Verified ASA Class: III Anesthesia Type: General [facility] History I have reviewed the patient's past medical history: Yes Medical History: Reports:: Atherosclerotic Heart Disease, Diabetes Mellitus Type 1, Hyperlipidemia, Hypertension, Renal Insufficiency Denies:: Diabetes Mellitus Type 2 *Have you ever received a pneumonia vaccine?: No *Have you received a flu vaccine this season?: No Other Medical History: Reports: Thyroid Disease (Autoimmune hypothyroidism.) Anesthesia experience/problems:: none - *Social History Last grade of school completed: High school graduate Smoking Status: Former smoker Alcohol Intake: never Substance Use Type: denies use *Occupational Status:: retired *Travel in the last 8 weeks: None Family Hx:: Hypertension
[2021-02-04 17:39] LABS: POC Glucose,Bedside 132 (70-110)
--- NOTE | 2021-02-04 17:39 | XR_ITS ---
PROCEDURE INFORMATION: Exam: XR Left Foot Exam date and time: 02/04/2021 5:39 PM Age: 80 years old Clinical indication: Condition or disease; Other: Post op amputation; Prior surgery; Surgery date: Post-operative (0-2 days); Additional info: Postop amputation TECHNIQUE: Imaging protocol: XR Left foot. Views: 3 or more views. COMPARISON: CT FOOT LT WO CON 02/03/2021 9:31 PM FINDINGS: Bones/joints: The patient is status post amputation of the 1st digit. The bones are demineralized but grossly intact without an acute fracture, bone destruction or periostitis. There is a remote healed fracture deformity of the metatarsal. Soft tissues: There is a prominent calcaneal enthesophyte at the insertion of the plantar fascia. IMPRESSION: 1. Status post amputation of the 1st toe. 2. Remote healed fracture deformity of the 5th metatarsal.
--- NOTE | 2021-02-04 17:40 | HMH.OPNOTE ---
Date of procedure: 02/04/21 Pre-op Diagnosis:: 1. Left hallux osteomyelitis 2. Left hallux diabetic ulcer 3. Left toe cellulitis 4. Onychomycosis b/l Post-op Diagnosis:: Same Procedure performed:: 1. Left hallux amputation 2. Debridement/excision of left hallux ulcer 3. Nail trim/debridemen x9 Surgeon:: Tosha Guy DPM [employer] APPRENTICE:: Other (Ranjit Galicia) Anesthesia: GETA, local (10cc 0.5% [place]) Estimated blood loss (mL): 15 Clinical Note:: PRE-OP AMPUTATION/INFECTION: LEFT HALLUX Labs, 02/04/21: wbc 26.5, esr 92, crp 24.2, glucose 200 CT of the left foot were reviewed and discussed with the patient. CT 02/03/2021 shows FINDINGS: Bones/joints: Calcaneal spurring. There is severe lucency and destruction involving the 1st distal phalanx consistent with severe osteomyelitis and pathologic fracture. There is overlying severe soft tissue swelling and ulceration and soft tissue gas. Chronic fracture involving the 5th metatarsal. Soft tissues: There is severe soft tissue swelling diffusely. Extensive skin thickening. IMPRESSION: Severe lucency and destruction involving the 1st distal phalanx consistent with severe osteomyelitis and pathologic fracture. Overlying soft tissue swelling, ulceration and soft tissue gas. B/L LE Vascular Studies, 02/04/21: RELL R 1.06, L 1.08. TBI R 0.76, L 0.58. We discussed conservative versus surgical treatment options. Conservative treatment options include local wound care, oral and IV antibiotics, change in shoe wear, taping/padding, and off-loading. We discussed surgical intervention for amputation of the left hallux. Patient understands that there is a chance that the toes can migrate to fill the gap or the foot may change shape after surgery. Patient also understands that they could have wound healing complications including delayed healing and infection. We discussed that if the wound does not heal, it is possible that they may need a more proximal amputation and could result in further loss of digits, loss of partial foot or loss of leg. We discussed the risks and benefits in great detail. Other surgical risks include: prolonged pain and swelling, further infection requiring oral or IV antibiotics, delay in healing of soft tissue or bone, nerve or blood vessel damage, CRPS/RSD, DVT, anesthesia complications, and even . Discussed with the patient the importance of keeping the toenails well managed to avoid sore/ulcers which can result from the nails digging into the skin. The patient can not bend over and has difficulty to cut the nails. All questions answered. Patient verbalized understanding. Consent obtained. Dr Grey-medical clearance. Pre-op labs reviewed. Operative findings:: Left hallux distal phalanx plantar ulcer measures 0.4 x 0.4 x 1.3 cm. It did probe to the level of the bone full-thickness. Distal phalanx visible in the wound bed. There was periwound gangrene and eschar with necrotic malodorous tissue. 5 cc of creamy purulent drainage expressed, wound culture taken. Distal phalanx was fractured in multiple places and soft. Head of the proximal phalanx discolored with cortical erosions. Base of the proximal phalanx appeared to be intact and hard. First metatarsal head had some cortical erosions consistent with arthritis. The distal extensor and flexor tendons were both shredded with infection distally. Infection did not appear to extend past the first metatarsal head. Operative note:: On this date and time patient was deemed an appropriate surgical candidate. With informed consent signed, the patient was taken to the operating theater. The patient was positioned supine. LMA anesthesia was induced. Left midcalf tourniquet used at 225 mmHg. IV Vanocmycin given as scheduled on floor. IV clindamycin given in OR. Left hallux amputation, ulcer excision: The lower extremity was prepped and drapped in normal sterile fashion. Cellulitis noted around the plantar and dorsal left toe. The ulceration noted to the tip
--- NOTE | 2021-02-04 17:55 | P.PN_ITS ---
[facility] Anesthesia Record Part I Intake, IV Amount: 500 Estimated blood loss (mL): 20 Urine output (mL): 0 Blood Pressure: 108/47 SaO2: 98 Pulse Rate: 81 Respiratory Rate: 14 Temperature: 98 F Patient is:: Awake Stable to PACU at:: 17:38
--- NOTE | 2021-02-04 18:46 | PC.NURSE ---
Pt is alert and oriented x3. Lungs are clear. He remains on 2L NC with O2 sats in the upper 90's. He has rested in bed the majority of the shift. He utilizes a urinal at the bedside. Urine is clear and dark zion. He is at least an assist x1 due to being unsteady on his feet. Pt is s/p left great toe amputation. Dressing is clean, dry and intact. Bilateral feet are dry and scaly. Distal pulses are +1. Stage 2 noted right buttocks, stage 1 to left buttocks. Dressing applied to attempt to prevent further breakdown. Pt instructed on use of incentive spirometer. SCUD to RLE. is at bedside and supportive. Will report to oncoming nurse.
[2021-02-04 21:53] LABS: POC Glucose,Bedside 257 (70-110)
[2021-02-05] VITALS (8 sets, daily range): BP systolic 104–126; BP diastolic 49–63; PULSE 65–83; RESP 16–20; TEMP 36.5–37.2; O2SAT 92–100; BMI 25.0
[2021-02-05 06:31] LABS: POC Glucose,Bedside 190 (70-110)
[2021-02-05 07:40] LABS: Basophils # 0.1 K/mm3 (0-0.2); Basophils % 0.4 % (0.1-2.0); Eosinophils # 0.2 K/mm3 (0.0-0.4); Eosinophils % 1.5 % (0.1-12.0); Hematocrit 30.3 % (42.0-52.0); Hemoglobin 10.2 g/dL (14.1-18.0); Lymphocytes # 1.2 K/mm3 (0.7-4.5); Lymphocytes % 8.6 % (10-50); Mean Corpuscular HGB Conc 33.6 g/dL (31.8-35.4); Mean Corpuscular Volume 89.2 fl (80-94); Monocytes # 0.9 K/mm3 (0.1-1.0); Monocytes % 6.1 % (1.7-9.3); Neutrophils # 11.8 K/mm3 (1.8-7.8); Neutrophils % 83.5 % (37.0-80.0); Platelet Count 268 K/mm3 (142-424); Red Blood Count 3.39 M/mm3 (4.60-6.20); Red Cell Distribution Width 14.2 % (11.5-17.5); White Blood Count 14.1 K/mm3 (4.8-10.8)
--- NOTE | 2021-02-05 07:50 | HMH.ACPN2 ---
Internal Medicine - PN: Subj *Date: 02/05/21 *Time: 08:42 Interval history: 80-year-old male status post amputation of left hallux due to osteomyelitis. Tolerated procedure well. Preliminary stain shows gram-negative rods. Significant improvement in white count overnight. Inflammatory markers pending. We will add gram-negative coverage with cefepime today. Patient has no complaints at this time. No significant bleeding overnight. Remains afebrile. No nausea or vomiting. Tolerating sliding scale insulin well. Exam Vital signs and Labs for Last 24 Hours: Temp Pulse Resp BP Pulse Ox 97.7 F 70 18 117/57 L 92 L 02/05/21 04:00 02/05/21 04:00 02/05/21 04:00 02/05/21 04:00 02/05/21 04:00 Laboratory Results - last 24 hr 02/04/21 06:04: Total Counted 100, Neutrophils % (Manual) 85 H, Band Neutrophils % 2.0, Lymphocytes % (Manual) 11, Monocytes % (Manual) 1 L, Eosinophils % (Manual) 1, Platelet Estimate Normal, RBC Morphology Normal 02/04/21 06:04: SARS-CoV-2 IgG Ab (Rapid) Positive A, SARS-CoV-2 IgM Ab (Rapid) Negative 02/04/21 06:04: Hemoglobin A1c 9.0 H 02/04/21 08:45: Chlamy pneumoniae PCR Not detected, Adenovirus (PCR) Not detected, B. pertussis DNA (PCR) Not detected, Coronavirus OC43 (PCR) Not detected, Coronavirus HKU1 (PCR) Not detected, Coronavirus 229E (PCR) Not detected, SARS-CoV-2 (PCR) Not detected, Coronavirus NL63 (PCR) Not detected, Human Metapneumovir PCR Not detected, Influenza A (H1) PCR Not detected, Influ A (H1N1/09) PCR Not detected, Influenza A (H3) PCR Not detected, Influenza Type A (PCR) Not detected, Influenza Type B (PCR) Not detected, M. pneumoniae (PCR) Not detected, Parainfluenza 1 (PCR) Not detected, Parainfluenza 2 (PCR) Not detected, Parainfluenza 3 (PCR) Not detected, Parainfluenza 4 (PCR) Not detected, RSV (PCR) Not detected, Entero/Rhino (PCR) Not detected 02/04/21 10:07: Urine Color Yellow, Urine Appearance Clear, Urine pH 5.5, Ur Specific [place] 1.020, Urine Protein Trace, Urine Glucose (UA) Negative, Urine Ketones Negative, Urine Blood Trace-l, Urine Nitrate Negative, Urine Bilirubin Negative, Urine Urobilinogen 0.2, Ur Leukocyte Esterase Negative, Urine RBC 3-5, Urine WBC 3-5, Ur Squamous Epith Cells None, Urine Bacteria None 02/04/21 11:28: POC Glucose 137 H 02/04/21 17:32: POC Glucose 132 H 02/04/21 21:45: POC Glucose 257 H 02/05/21 05:31: POC Glucose 190 H 02/05/21 07:19: WBC 14.1 H D, RBC 3.39 L, Hgb 10.2 L, Hct 30.3 L, MCV 89.2, MCH 30.0, MCHC 33.6, RDW 14.2, Plt Count 268, MPV 7.0 L, Neut % (Auto) 83.5 H, Lymph % (Auto) 8.6 L, [place] % (Auto) 6.1, Eos % (Auto) 1.5, Baso % (Auto) 0.4, Neut # (Auto) 11.8 H, Lymph # (Auto) 1.2, [place] # (Auto) 0.9, Eos # (Auto) 0.2, Baso # (Auto) 0.1 I & O for Last 24 hours: Intake & Output 02/02/21 02/03/21 02/04/21 02/05/21 23:59 23:59 23:59 23:59 Intake Total 1250 / 1250 620 / 840 220 / 220 Output Total 650 / 650 125 / 125 Balance 1250 / 1250 -30 / 190 95 / 95 Weight 80.824 kg 81 kg 83.631 kg Microbiology Reports for the Last 24 Hours: Microbiology 02/03/21 20:22 Blood Blood Culture - Preliminary 02/04/21 16:45 Toe,Left Great Gram Stain - Final Narrative: - Constitutional no acute distress, thin, chronically ill appearing, disheveled - *Routine HEENT Exam Head: Present: normocephalic Eye: Present: EOMI, PERRL ENT: Present: mucous membranes dry - *Routine Neck Exam Present: supple. Absent: lymphadenopathy - *Routine Respiratory Exam Present: CTA bilaterally - *Routine Cardiovascular Exam Present: RRR, murmur - *Routine Abdominal Exam Present: soft, normoactive bowel sounds. Absent: tenderness Back -Stage I decubitus ulcer present overlying sacrum and upper gluteal cleft present on admission. Blistering, nonblanching. - *Routine Extremities Exam Absent: cyanosis, clubbing, edema Comments: Chronic vascular changes noted in lower extremities, scaling on all toes. Left foot and postsurgical bandaging.
[2021-02-05 07:56] LABS: Anion Gap 5.1 mEq/L (5-15); Blood Urea Nitrogen 13 mg/dl (9-20); Calcium 8.2 mg/dl (8.4-10.2); Carbon Dioxide 31 mmol/L (22.0-30.0); Chloride 105 mmol/L (98-107); Creatinine Clearance Estimated 72 mL/min (50-200); Estimated Glomerular Filt Rate 109 ml/min (>60); GFR (African American) 132 ML/MIN (>60); Glucose 170 mg/dl (74-100); Potassium 4.1 mmoL/L (3.5-5.1); Sodium 137 mmol/L (136-145)
--- NOTE | 2021-02-05 08:01 | HMH.ORTHPN ---
Subjective Date: 02/05/21 <Susan Hernandez - 02/05/21 08:48> Time: 08:01 <Susan Hernandez - 02/05/21 08:48> Principal diagnosis: Left hallux amputation <Susan Hernandez - 02/05/21 08:48> Interval history: Date of procedure: 02/04/21 S/pLeft hallux amputation, Debridement/excision of left hallux ulcer, Nail trim/debridemen x9 POV # 1 POD # 1 This is postop day 1 for the patient he had surgery yesterday for left hallux osteomyelitis, left hallux diabetic ulcer, left toe cellulitis as well as onychomycosis bilaterally.Patient is doing very well this morning sitting up in bed eating his breakfast. Patient denies any pain to the left foot. States he had a good night sleep the foot did not give him very much pain throughout the night. Sutures are clean, dry and intact to the incision site with no signs of infection. I will clean and redressed the site this morning. <DavidAnaisSusan Zahra - 02/05/21 08:48> PN: Obj Ex Vital signs: Temp Pulse Resp BP Pulse Ox 98 F 72 19 124/63 99 02/05/21 08:00 02/05/21 08:00 02/05/21 08:00 02/05/21 08:00 02/05/21 08:00 <Tosha Guy - 02/05/21 10:01> Temp Pulse Resp BP Pulse Ox 97.7 F 70 18 117/57 L 92 L 02/05/21 04:00 02/05/21 04:00 02/05/21 04:00 02/05/21 04:00 02/05/21 04:00 <Susan Hernandez - 02/05/21 08:48> - Constitutional no acute distress, thin <Susan Hernandez Zahra - 02/05/21 08:48> - Routine HEENT Exam Head: Present: normocephalic <Carlos EnriquedamarisSusan Zahra - 02/05/21 08:48> Eye: Present: EOMI <DavidSusan L - 02/05/21 08:48> ENT: Present: mucous membranes moist <Susan Hernandez 02/05/21 08:48> - Routine Neck Exam Present: trachea midline <Susan Hernandez 02/05/21 08:48> - Routine Chest/Breast/Axilla Exam Chest wall: Absent: tenderness <Susan Hernandez 02/05/21 08:48> - Routine Respiratory Exam Absent: respiratory distress <Susan Hernandez 02/05/21 08:48> - Routine Cardiovascular Exam Present: RRR <Susan Hernandez 02/05/21 08:48> - Routine Abdominal Exam Present: soft <Susan Hernandez 02/05/21 08:48> - Routine Extremities Exam Present: extremity cold to touch. Absent: pulses intact (weakly palpable pedal pulses ) <Susan Hernandez 02/05/21 08:48> - Detailed Lower Extremity Exam Top foot image: 1 - S/P Left hallux amputation, sutures intact, no drainage noted. The erythema and edema has improved this morning. Site cleaned with Betadine, Xeroform placed on sutures, Betadine soaked 4 x 4, dry 4 x 4, Kerlix and Carrington wrap applied. <Susan Hernandez 02/05/21 08:48> Comments: Peripheral pulses: 1+ posterior tibialis (L), 1+ dorsalis pedis (L), 1+ dorsalis pedis (R), 2+ posterior tibialis (R) <Susan Hernandez 02/05/21 08:48> - Routine Skin Exam Present: dry, lesions ((right anterior martin: 0.5x0.5x0.0cm)), wounds (s/p left hallux amputation, delayed CFT. ) <Susan Hernandez 02/05/21 08:48> - Routine Neurological Exam Present: alert, oriented X3, moving all extremities, normal speech <Susan Hernandez 02/05/21 08:48> - Detailed Neurological Exam: Coma Scale Coma scale verbal response: Oriented <Susan Hernandez - 02/05/21 08:48> - Routine Psychiatric Exam Present: normal affect, cooperative <Susan Hernandez 02/05/21 08:48> Progress Note: A&P (1) Osteomyelitis of toe of left foot Status: Acute (2) Gas gangrene of foot Status: Acute (3) COVID-19 Status: Acute (4) Diabetes mellitus Status: Acute (5) SIRS (systemic inflammatory response syndrome) Status: Acute <Susan Hernandez - 02/05/21 08:01> (1) Osteomyelitis of toe of left foot Status: Acute (2) Gas gangrene of foot Status: Acute (3) COVID-19 Status: Acute (4) Diabetes mellitus Status: Acute (5) SIRS (systemic inflammatory response syndrome) Status: Acute <Tosha Guy - 02/05/21 10:01> A
[2021-02-05 08:29] LABS: Erythrocyte Sedimentation Rate 101 mm/hr (0-20)
--- NOTE | 2021-02-05 10:10 | HMH.PTEV ---
Physical Therapy Evaluation Rehab PT IP Evaluation Start: 02/05/21 08:17 Freq: ONCE Status: Active Protocol: Document 02/05/21 10:00 NISHA (Rec: 02/05/21 10:10 NISHA [id number]) Subjective/History History History 80-year-old white male with hyperthyroidism, diabetes, type II but insulin requiring, who has been feeling poorly over the past couple of days, and noticed 3 or 4 days ago that he had an ulcer and scab on the bottom of the left great toe. Late evening yesterday he had an episode where he fell after being very nauseated and vomited at his home, was unable to be picked up by his family and was brought to the emergency department here. Was found to have a severe left great toe ulcer which proved to have osteomyelitis in the bone based on CT scan and x-ray criteria, also met sepsis criteria with elevated leukocytosis and his organ dysfunction and source of infection. Subjective Subjective Pt reports he feels woozy Rehab PT IP Eval Objective Appearance Patient Behavior Appropriate Patient Orientation Person,Place,Time Difficulty following instructions none Speech Pattern Clear,Appropriate Ambulation Patient Able to Ambulate Yes Ambulation Observation IP General Gait Pattern Observation Antalgic Gait,Decrease Weight Bear (R) Ambulation Distance (feet) 3 Ambulation Assistive Device None Ambulation Ability Contact Guard/Hand Hold Balance Ability to Arise Able, uses arms to help Sitting Balance Steady, safe Standing Balance Narrow stance w/o support Dynamic Sitting Balance Ability Good Dynamic Standing Balance Ability Poor Transfers Bed Transfer Ability Supervision/Stand by Chair Transfer Ability Supervision/Stand by Sit to Stand Bed Transfer Ability Contact Guard/Hand Hold Sit to Stand Chair Transfer Ability Contact Guard/Hand Hold ROM All Extremities PT ROM Status WFL MMT All Extremities PT MMT WFL Rehab PT IP prob,goals,plan Problem
--- NOTE | 2021-02-05 10:11 | HMH.PTWOUND ---
Rehab Inpt Wound Evaluation Rehab IP Wound Evaluation Start: 02/05/21 08:41 Freq: ONCE Status: Active Protocol: Document 02/05/21 10:00 PWJIANRYAN (Rec: 02/05/21 10:10 [email or web address] [id number]) Rehab PT Wound Assessment Patient Status Premedicated Prior to Dressing Change No Subjective Subjective no complaints from pt Wound Right Buttock Wound Type Pressure Ulcer Is This a Chronic Wound Yes Wound Staging Stage II Query Text:Stage I - Unbroken, red skin, no blanching. Stage II - Skin broken, superficial skin loss involving epidermis alone or also dermis. Partial loss of skin layers. Stage III - Pressure area involves epidermis, dermis and subcutaneous tissue, full thickness skin loss. Stage IV - Pressure area involves epidermis, subcutaneous tissue, bone and other supportive tissue. Full thickness skin loss with extensive destruction of underlying tissue and structures. Left Buttock Wound Type Pressure Ulcer Wound Staging Stage I Query Text:Stage I - Unbroken, red skin, no blanching. Stage II - Skin broken, superficial skin loss involving epidermis alone or also dermis. Partial loss of skin layers. Stage III - Pressure area involves epidermis, dermis and subcutaneous tissue, full thickness skin loss. Stage IV - Pressure area involves epidermis, subcutaneous tissue, bone and other supportive tissue. Full thickness skin loss with extensive destruction of underlying tissue and structures. Left Foot Wound Type Incision Is This a Chronic Wound No Primary Dressing Medicated Gauze Pad Wound Secondary Dressing Type Gauze Roll/Wrap,Elastic Bandage Plan/Recommendation Comment No dressing change performed at this time - will consult w/ podiatry for f/u on wound and wound care recommendations pressure sores on bottom to be followed by nsg - no debridemnt necessary - pressure relief able to be completed by pt Eval Complexity Eval Charge Codes 98607 - Low Complexity G-codes PT Current Status Other PT/OT Status PT Current Status Modifier CM-At least 80% but less than 100
--- NOTE | 2021-02-05 12:53 | HMH.ANESII ---
[facility] Anesthesia Record Part II Discharge Time: 17:48 Destination: Medical Surgical Department PACU nurse assessment reviewed?: Yes Patient Condition:: Good Anesthesia Complications:: None Swallowing reflex intact?: Yes Cyanosis?: No Blood Pressure: 114/53 Pulse Rate: 83 Temperature: 97.7 F Mental Status: Alert & Oriented Pain level:: 0 Nausea and/or vomitting:: None Intake, IV Amount: 0
--- NOTE | 2021-02-05 14:03 | PC.NURSE ---
Pt is alert and oriented x3. Lungs are clear, bowel sounds active x4. He remains on 2L NC with O2 sats measuring > 95%. He was up to the chair for approx 1 hour an did not tolerate. He reported severe back pain while up to the chair and wanted to go back to bed. PRN pain medication offered but patient refused. IV infiltrated with vancomycin infusing. Pharmacy notified. They stated a cool compress could be applied if needed. Dressing to left foot is clean, dry and intact. Dressing to coccyx is clean, dry and intact. Pt instructed to change positions frequently to prevent further breakdown. Family updated on plan of care. Will continue to monitor.
[2021-02-05 17:10] LABS: POC Glucose,Bedside 291 (70-110)
[2021-02-05 20:49] LABS: Vancomycin,Trough 11.6 ug/mL (5.0-10.0)
[2021-02-05 21:12] LABS: POC Glucose,Bedside 228 (70-110)
[2021-02-06] VITALS: BP 115/60; PULSE 66; RESP 20; TEMP 36.9; O2SAT 92; O2SAT 94
--- NOTE | 2021-02-06 01:20 | PC.NURSE ---
assumed care from garo christian. assessment completed and charted in bio
[2021-02-06 01:43] LABS: POC Glucose,Bedside 243 (70-110)
[2021-02-06 03:32] VITALS: BP 143/68; PULSE 77; RESP 17; TEMP 36.7; O2SAT 92
[2021-02-06 05:00] VITALS: BMI 25.4
[2021-02-06 07:42] LABS: Basophils # 0.1 K/mm3 (0-0.2); Basophils % 0.6 % (0.1-2.0); Eosinophils # 0.2 K/mm3 (0.0-0.4); Eosinophils % 1.9 % (0.1-12.0); Hematocrit 33.3 % (42.0-52.0); Lymphocytes # 1.2 K/mm3 (0.7-4.5); Lymphocytes % 10.1 % (10-50); Mean Corpuscular HGB Conc 33.9 g/dL (31.8-35.4); Mean Corpuscular Volume 88.5 fl (80-94); Mean Platelet Volume 6.8 fl (7.4-10.4); Monocytes # 0.7 K/mm3 (0.1-1.0); Monocytes % 5.6 % (1.7-9.3); Neutrophils # 9.4 K/mm3 (1.8-7.8); Neutrophils % 81.8 % (37.0-80.0); Platelet Count 287 K/mm3 (142-424); Red Blood Count 3.76 M/mm3 (4.60-6.20); White Blood Count 11.5 K/mm3 (4.8-10.8)
[2021-02-06 07:46] LABS: Alanine Aminotransferase 12 U/L (12-78); Albumin Level 3.2 g/dl (3.5-5.0); Albumin/Globulin Ratio 1.2 (1.1-1.8); Alkaline Phosphatase 89 U/L (38-126); Anion Gap 7.9 mEq/L (5-15); Aspartate Amino Transferase 14 U/L (17-59); Bilirubin,Total 0.6 mg/dl (0.2-1.3); Blood Urea Nitrogen 10 mg/dl (9-20); Calcium 8.7 mg/dl (8.4-10.2); Carbon Dioxide 31 mmol/L (22.0-30.0); Chloride 105 mmol/L (98-107); Creatinine Clearance Estimated 73 mL/min (50-200); Estimated Glomerular Filt Rate 93 ml/min (>60); GFR (African American) 113 ML/MIN (>60); Globulin 2.7 g/dL (1.3-3.2); Glucose 211 mg/dl (74-100); Magnesium 1.6 mg/dl (1.6-2.3); Potassium 3.9 mmoL/L (3.5-5.1); Sodium 140 mmol/L (136-145); Total Protein,Serum 5.9 g/dl (6.3-8.2)
[2021-02-06 07:53] LABS: C-Reactive Protein 40.8 mg/L (0-4)
[2021-02-06 08:00] VITALS: BP 147/85; PULSE 71; RESP 16; TEMP 36.9; O2SAT 97
--- NOTE | 2021-02-06 08:13 | HMH.ACPN2 ---
Internal Medicine - PN: Subj *Date: 02/06/21 *Time: 08:13 Interval history: 80-year-old white male feels much better this morning. Breathing easily, had a good breakfast, good urine output. Surgical note reviewed. Nursing notes reviewed. Physical therapy notes reviewed. Exam Vital signs and Labs for Last 24 Hours: Temp Pulse Resp BP Pulse Ox 98.1 F 77 17 143/68 H 92 L 02/06/21 03:32 02/06/21 03:32 02/06/21 03:32 02/06/21 03:32 02/06/21 03:32 Laboratory Results - last 24 hr 02/05/21 07:19: ESR 101 H 02/05/21 11:12: POC Glucose 243 H 02/05/21 16:49: POC Glucose 291 H 02/05/21 20:01: Vancomycin Trough 11.6 H 02/05/21 20:24: POC Glucose 228 H 02/06/21 07:03: Sodium 140, Potassium 3.9, Chloride 105, Carbon Dioxide 31 H, Anion Gap 7.9, BUN 10, Creatinine 0.80, Estimated Creat Clear 73, Estimated GFR 93, Est GFR ( Amer) 113, Glucose 211 H D, Calcium 8.7, Magnesium 1.6 D, Total Bilirubin 0.6, AST 14 L, ALT 12 D, Alkaline Phosphatase 89, C-Reactive Protein 40.8 H, Total Protein 5.9 L, Albumin 3.2 L, Globulin 2.7, Albumin/Globulin Ratio 1.2 I & O for Last 24 hours: Intake & Output 02/03/21 02/04/21 02/05/21 02/06/21 11:59 11:59 11:59 11:59 Intake Total 1250 / 1250 1325 / 1325 730 / 730 Output Total 400 / 400 525 / 525 1800 / 1800 Balance 850 / 850 800 / 800 -1070 / -1070 Weight 178 lb 3 oz 184 lb 6 oz 188 lb Microbiology Reports for the Last 24 Hours: Microbiology 02/03/21 20:22 Blood Blood Culture - Preliminary NO GROWTH AFTER 48 HOURS 02/04/21 16:45 Toe,Left Great Gram Stain - Final 02/04/21 16:45 Toe,Left Great Surgical Biopsy Culture - Preliminary NO GROWTH AFTER 24 HOURS 02/04/21 16:45 Toe,Left Great Gram Stain - Final 02/04/21 16:45 Toe,Left Great Wound Culture - Preliminary Narrative: Patient is alert, pleasant, oriented x3. Breathing easily. Lungs have good movement with no rhonchi. Heart rate regular. Abdomen soft and nontender. Left foot in dressing, great toe is now surgically absent. No dressing bleeding or drainage noted. Extremities are warm down to the mid shins and right foot has good pulse in the foot. Neurologic exam intact. 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 We will continue IV antibiotics for now. Inflammatory markers also improving. Await culture results and podiatry opinion vis-?-vis length of time of IV antibiotics. Continue skin care, continue ambulation, appreciate PT notes, will arrange physical therapy/wound care/possible IV antibiotics on discharge to home.
[2021-02-06 08:19] LABS: Hemoglobin 11.3 g/dL (14.1-18.0)
--- NOTE | 2021-02-06 08:45 | HMH.ORTHPN ---
Subjective Date: 02/06/21 <Susan Hernandez - 02/06/21 09:46> Time: 07:50 <Susan Hernandez - 02/06/21 09:46> Principal diagnosis: Left hallux amputation <Susan Hernandez 02/06/21 09:46> Interval history: S/pLeft hallux amputation, Debridement/excision of left hallux ulcer, Nail trim/debridemen x9 POV # 2 POD # 2 Patient resting in bed this am, he is eating his breakfast. Patient denies any acute pain with left hallux this morning. This is postop day #2 from left hallux amputation, debridement/excision of left hallux ulcer. The left hallux ulcer had a little bit of redness at the proximal end of the hallux amp site. Mild swelling noted as well. I was able to compress the site and some bloody drainage was expressed from the amp site, no purulence noted. Sutures remain clean dry and intact. I will clean and redress the site this morning. <Susan Hernandez Sahara 02/06/21 09:46> PN: Obj Ex Vital signs: Temp Pulse Resp BP Pulse Ox 98.4 F 71 16 147/85 H 97 02/06/21 08:00 02/06/21 08:00 02/06/21 08:00 02/06/21 08:00 02/06/21 08:00 <MalenaTosha de dios - 02/06/21 16:41> Temp Pulse Resp BP Pulse Ox 98.4 F 71 16 147/85 H 97 02/06/21 08:00 02/06/21 08:00 02/06/21 08:00 02/06/21 08:00 02/06/21 08:00 <Susan Hernandez - 02/06/21 09:46> - Constitutional no acute distress <Susan Hernandez Sahara 02/06/21 09:46> - Routine HEENT Exam Head: Present: normocephalic <Susan Hernandez Sahara 02/06/21 09:46> Eye: Present: EOMI <DavidSusan Zahra Shoemaker 02/06/21 09:46> ENT: Present: mucous membranes moist <GaSusan ocampo 02/06/21 09:46> - Routine Neck Exam Present: trachea midline <Susan Hernandez 02/06/21 09:46> - Routine Respiratory Exam Absent: accessory muscle use, respiratory distress <Susan Hernandez 02/06/21 09:46> - Routine Cardiovascular Exam Present: RRR <Susan Hernandez 02/06/21 09:46> - Routine Abdominal Exam Present: soft <Susan Hernandez 02/06/21 09:46> - Routine Extremities Exam Present: pulses intact (weakly palpable) <Susan Hernandez 02/06/21 09:46> - Detailed Lower Extremity Exam Top foot image: 1 - S/P Left hallux amputation, sutures intact, small amount of bloody drainage noted. There still is some erythema and edema this morning. Site cleaned with Betadine, Xeroform placed on sutures, Betadine soaked 4 x 4, dry 4 x 4, Kerlix and Carrington wrap applied. <Susan Hernandez 02/06/21 09:46> Comments: 1+ posterior tibialis (L), 1+ dorsalis pedis (L), 1+ dorsalis pedis (R), 2+ posterior tibialis (R) <Susan Hernandez 02/06/21 09:46> - Routine Back/Spine/Pelvis Exam Back/Spine: Present: full ROM <Susan Hernandez 02/06/21 09:46> - Routine Skin Exam Present: erythema, dry, wounds (s/p left hallux amputation) <Susan Hernandez 02/06/21 09:46> - Routine Neurological Exam Present: alert, oriented X3, moving all extremities, normal tone, vision grossly intact, hearing grossly intact <Susan Hernandez 02/06/21 09:46> Progress Note: A&P (1) COVID-19 Status: Acute (2) Diabetes mellitus Status: Acute (3) Osteomyelitis Status: Acute (4) SIRS (systemic inflammatory response syndrome) Status: Acute <Tosha Guy - 02/06/21 16:41> (1) Osteomyelitis of toe of left foot Status: Acute (2) Gas gangrene of foot Status: Acute (3) COVID-19 Status: Acute (4) Diabetes mellitus Status: Acute (5) SIRS (systemic inflammatory response syndrome) Status: Acute <Susan Hernandez - 02/06/21 08:45> Assessment and Plan for All Diagnoses:: Patient was seen and evaluated by myself this afternoon. also present at bedside. Another dressing change was performed. There was localized edema and erythema around the incision site with mild pain to palpation of the central area. Skin cleansed with Betadine. 1 suture was removed from the centr
[2021-02-06 09:36] LABS: Erythrocyte Sedimentation Rate 61 mm/hr (0-20)
--- NOTE | 2021-02-06 10:26 | HMH.PHACONS ---
- Pharmacy Consult Date: 02/06/21 Time: 10:26 Referring provider: DR. OLSEN Reason for Consult:: VANCOMYCIN TROUGH LEVEL Allergies and ADEs:: Allergies Allergy/AdvReac Type Severity Reaction Status Date / Time No Known Allergies Allergy Unverified 09/22/17 14:55 Home Medications:: Home Medications Medication Instructions Recorded Confirmed Type Atorvastatin Calcium [Lipitor 80mg 80 mg PO HS 02/03/21 02/03/21 History Tablet*] Escitalopram Oxalate 10 mg PO DAILY 02/03/21 02/03/21 History Insulin Detemir [Levemir 40 units SQ HS 02/03/21 02/03/21 History 100units/mL 3mL flexpen] Insulin Glargine/Lixisenatide 20 units SQ DAILY 02/03/21 02/03/21 History [Soliqua 100 Unit-33 Mcg/ml Pen] Metformin HCl [Metformin 1000mg 1,000 mg PO BID 02/03/21 02/03/21 History Tablets] lisinopriL [Lisinopril] 10 mg PO DAILY 02/03/21 02/03/21 History propylthiouraciL [Propylthiouracil] 50 mg PO TID 02/03/21 02/03/21 History Height: 1.83 m Weight: 85.275 kg Laboratory Results:: Laboratory Results - last 24 hr 02/05/21 11:12: POC Glucose 243 H 02/05/21 16:49: POC Glucose 291 H 02/05/21 20:01: Vancomycin Trough 11.6 H 02/05/21 20:24: POC Glucose 228 H 02/06/21 07:03: WBC 11.5 H, RBC 3.76 L, Hgb 11.3 L D, Hct 33.3 L, MCV 88.5, MCH 30.0, MCHC 33.9, RDW 14.0, Plt Count 287, MPV 6.8 L, Neut % (Auto) 81.8 H, Lymph % (Auto) 10.1, Swain % (Auto) 5.6, Eos % (Auto) 1.9, Baso % (Auto) 0.6, Neut # (Auto) 9.4 H, Lymph # (Auto) 1.2, Swain # (Auto) 0.7, Eos # (Auto) 0.2, Baso # (Auto) 0.1, ESR 61 H 02/06/21 07:03: Sodium 140, Potassium 3.9, Chloride 105, Carbon Dioxide 31 H, Anion Gap 7.9, BUN 10, Creatinine 0.80, Estimated Creat Clear 73, Estimated GFR 93, Est GFR ( Amer) 113, Glucose 211 H D, Calcium 8.7, Magnesium 1.6 D, Total Bilirubin 0.6, AST 14 L, ALT 12 D, Alkaline Phosphatase 89, C-Reactive Protein 40.8 H, Total Protein 5.9 L, Albumin 3.2 L, Globulin 2.7, Albumin/Globulin Ratio 1.2 Medical History: Reports:: Atherosclerotic Heart Disease, Diabetes Mellitus Type 1, Hyperlipidemia, Hypertension, Renal Insufficiency Denies:: Diabetes Mellitus Type 2 Assessment and Plan (1) Osteomyelitis of toe of left foot Status: Acute Category: Medical Code(s): M86.9 - Osteomyelitis, unspecified (2) Gas gangrene of foot Status: Acute Category: Medical Code(s): A48.0 - Gas gangrene (3) COVID-19 Status: Acute Category: Medical Code(s): U07.1 - COVID-19 (4) Diabetes mellitus Status: Acute Qualifiers: Diabetes mellitus type: type 2 Diabetes mellitus long chain dyeing machine operator insulin use: unspecified usp insulin use status Diabetes mellitus complication status: with other specified complication Qualified Code(s): E11.69 - Type 2 diabetes mellitus with other specified complication Category: Medical Code(s): E11.9 - Type 2 diabetes mellitus without complications (5) SIRS (systemic inflammatory response syndrome) Status: Acute Category: Medical Code(s): R65.10 - Systemic inflammatory response syndrome (SIRS) of non-infectious origin without acute organ dysfunction - Assessment and plan all Dx Assessment and Plan for all problems:: BASED ON PATIENT FACTORS AND VANCOMYCIN TROUGH LEVEL, RECOMMEND INCREASING DOSE TO VANCOMYCIN 1500 IV Q12H. PHARMACY WILL CONTINUE TO MONITOR DAILY AND ADJUST APPROPRIATE.
[2021-02-06 10:49] LABS: POC Glucose,Bedside 300 (70-110)
--- NOTE | 2021-02-06 13:04 | DIET.NUTRFU ---
PO intakes 75%, pt with no nutritional concerns. BG moderate- avg. 250. Stage II Decubitus noted, daily protein shake added to diet order for wound healing. Continuing to monitor.
--- NOTE | 2021-02-06 14:05 | PC.NURSE ---
pt needs a standard walker secondary to decreased mobility due to amputation of toe.
--- NOTE | 2021-02-06 14:30 | SW/DCPLANNER ---
Addendum entered by Anu Chaparro 02/07/21 12:39: PATIENT IS DISCHARGING HOME TODAY TO A FAMILY [facility]ERS HOME... HE WILL BE STAYING WITH LEON TIRADO [address] [place] [address]... HE [facility]OSE [facility] AND [employer] WILL BE DELIVERING THE MEDS THIS AFTERNOON... Addendum entered by Anu Chaparro 02/06/21 14:43: THERE WAS AN ORDER FOR A POST OP SHOE AND PATIENT DID RECEIVE IT AND WAS FITTED.. Original Note: RECEIVED REFERRAL FOR THIS PATIENT TO HAVE A ROLLING WALKER: I SPOKE WITH PATIENT AND HE STATED HE DOES NOT HAVE A WALKER AND STATED I COULD GET IT FROM [facility]... I SENT ORDERS FOR IT TO BE DELIVERED THIS AFTERNOON... THE PLAN IS FOR HIM TO DISCHARGE HOME IN THE AM....
--- NOTE | 2021-02-06 15:59 | PC.NURSE ---
No complaints this shift. Remains on room air w/ no s/s of resp distress. Has sat up in chair majority of shift, tolerating activity well. Pt was incontinent of urine this AM. Received bath and linen changed. Family currently @ bedside, as well as Dr. Guy. Call patito w/in reach. No needs voiced.
[2021-02-06 16:00] VITALS: BP 132/64; PULSE 62; RESP 18; TEMP 36.8; O2SAT 93
[2021-02-06 17:16] LABS: POC Glucose,Bedside 251 (70-110)
[2021-02-06 20:00] VITALS: BP 158/72; PULSE 71; RESP 17; TEMP 36.9; O2SAT 96
[2021-02-06 20:04] LABS: POC Glucose,Bedside 295 (70-110)
[2021-02-07 00:39] LABS: POC Glucose,Bedside 199 (70-110)
--- NOTE | 2021-02-07 02:54 | PC.NURSE ---
No acute changes overngiht. Pt A&O x4. no c/o pain this shift. Lungs CTA, on room air. Bowel sounds x4, abd soft and nontender. Drsg to r foot CDI, pt wears post op shoe when ambulating. IV patent, SL. VSS, call light in reach, no concerns at this time.
[2021-02-07 03:44] VITALS: BP 154/87; PULSE 65; RESP 16; TEMP 36.5; O2SAT 90
[2021-02-07 04:46] VITALS: BMI 25.3
[2021-02-07 05:41] LABS: POC Glucose,Bedside 273 (70-110)
[2021-02-07 08:00] VITALS: BP 132/60; PULSE 74; RESP 19; TEMP 36.8; O2SAT 98
--- NOTE | 2021-02-07 08:03 | XR_ITS ---
PROCEDURE: XR CHEST PORTABLE PICC PLAC CLINICAL HISTORY: Confirm PICC line placement COMPARISON: CT CHESTW CT chest w con from 11/29/2018 CR XR CHEST 2V from 03/13/2020 CR XR CHEST PORTABLE from 02/03/2021 FINDINGS: The cardiomediastinal silhouette and pulmonary vascularity are within normal limits. PICC line is been inserted by the left upper extremity approach. The tip is in good position in the region of the SVC. There is a faint nodular opacity overlying the left lower lobe and may be due to nipple shadow measuring 11 mm at the 6th interspace anteriorly. Chronic changes are present in the left apex. IMPRESSION: PICC line in good position in the region of the SVC. Probable nipple artifact left lower lobe which may be confirmed with follow-up chest. Dictated by: Lele Silvestre MD 02/07/2021 13:53 Lele Silvestre MD in [place] 02/07/2021 13:53
--- NOTE | 2021-02-07 08:12 | HMH.DCSUM ---
General - General Admission date:: 02/03/21 Discharge date: 02/07/21 HPI HPI: 80-year-old white male with hyperthyroidism, diabetes, type II but insulin requiring, who has been feeling poorly over the past couple of days, and noticed 3 or 4 days ago that he had an ulcer and scab on the bottom of the left great toe. Late evening yesterday he had an episode where he fell after being very nauseated and vomited at his home, was unable to be picked up by his family and was brought to the emergency department here. Was found to have a severe left great toe ulcer which proved to have osteomyelitis in the bone based on CT scan and x-ray criteria, also met sepsis criteria with elevated leukocytosis and his organ dysfunction and source of infection. Was admitted to hospital for IV antibiotics, podiatry consultation and further evaluation. Hospital Course Hospital Course: Patient was admitted, x-rays were found to be significant for osteomyelitis and podiatry was consulted and recommended complete amputation of the great hallux. This was done the following day. Cultures from blood, bone, base of the wound, etc. were taken. Blood cultures have shown a nonspecific strep species, so far bone cultures and skin cultures are no growth. After the amputation patient symptomatically improved very nicely. White counts resolved, down to normal this morning, and patient's color looks good and he felt much better, ate well and did well with liquids, bowel movements, urine output and other p.o. intake. PT therapy evaluated him, felt that he would do well with home health for increased mobility. He had a couple of very shallow decubitus ulcers on his buttocks, present on admission, these were treated with dressing changes. Patient had been initially on cefepime and vancomycin for empiric therapy for osteomyelitis. Given negative cultures and improving white counts patient will be continued on this. Plan for today will be as follows: 1. PICC line to be placed today. 2. Patient will be discharged this afternoon for home with home health for twice daily antibiotic infusions, daily dressing changes, PT/OT/home safety evaluation. Please note I have performed a [id number] evaluation on patient today and determined he is eligible for home health as he cannot leave his house with out a great deal of difficulty because of pain, recent amputation and instability. 3.Home health will need to draw BMP, CBC and vancomycin levels tomorrow morning at 8:30 AM before his initial dose of antibiotics at 9 AM. 4. Podiatry follow-up will be arranged next week. I will also see the patient next week in my [place] office. Of note patient had a positive COVID-19 swab on admission. This was determined to be a false positive based on positive IgG antibody testing from serum and a repeat negative COVID-19 PCR test. Objective Vital signs: Temp Pulse Resp BP Pulse Ox 97.7 F 65 16 154/87 H 90 L 02/07/21 03:44 02/07/21 03:44 02/07/21 03:44 02/07/21 03:44 02/07/21 03:44 no acute distress, thin, chronically ill appearing - *Routine HEENT Exam Head: Present: normocephalic Eye: Present: EOMI, PERRL ENT: Present: mucous membranes moist - *Routine Neck Exam Present: supple - *Routine Respiratory Exam Present: CTA bilaterally - *Routine Cardiovascular Exam Present: RRR - *Routine Abdominal Exam Present: soft, normoactive bowel sounds. Absent: tenderness - *Routine Rectal Exam Patient deferred: visual exam - *Routine Exam Penile: Absent: swelling, erythema - *Routine Extremities Exam Absent: cyanosis, clubbing, edema Comments: Left foot status post great toe amputation. I examined with podiatry. Minimal bloody drainage when pressure is applied, no purulent drainage. No fluctuance. Stump site looks pretty good, sutures look good, there is expected redness around the area which looks good all things considered from the previo
--- NOTE | 2021-02-07 08:22 | HMH.ORTHPN ---
Subjective Date: 02/07/21 <Susan Hernandez - 02/07/21 08:41> Time: 08:15 <Susan Hernandez - 02/07/21 08:41> Principal diagnosis: Left hallux amputation <Susan Hernandez - 02/07/21 08:41> Interval history: This is postop day #3 for left hallux amputation, debridement/excision of left hallux ulcer. Patient is doing very well this morning he denies any pain to the left hallux amputation site. The left hallux amputation site has some improving redness this morning the edema is a little less as well. I still was able to compress the site and have small amount of bloody drainage expressed from the amp site no purulence noted. Sutures remain clean dry and intact Dr. Guy was able to remove a suture to allow for more drainage yesterday. I will clean and redressed the site this morning. <Carlos EnriquedamarisSusan - 02/07/21 08:41> PN: Obj Ex Vital signs: Temp Pulse Resp BP Pulse Ox 98.2 F 74 19 132/60 98 02/07/21 08:00 02/07/21 08:00 02/07/21 08:00 02/07/21 08:00 02/07/21 08:00 <Tosha Guy - 02/07/21 09:16> Temp Pulse Resp BP Pulse Ox 98.2 F 74 19 132/60 98 02/07/21 08:00 02/07/21 08:00 02/07/21 08:00 02/07/21 08:00 02/07/21 08:00 <LemueldiazSusan - 02/07/21 08:41> - Constitutional no acute distress <Susan Hernandez - 02/07/21 08:41> - Routine HEENT Exam Head: Present: normocephalic <Carlos EnriquedamarisSusanbuster Shoemaker 02/07/21 08:41> Eye: Present: EOMI <Carlos EnriquedamarisSusan Zahra - 02/07/21 08:41> ENT: Present: mucous membranes moist <DavidSusan L - 02/07/21 08:41> - Routine Neck Exam Present: trachea midline <Susan Hernandez /06/21 08:41> - Routine Respiratory Exam Absent: respiratory distress <Susan Hernandez 02/07/21 08:41> - Routine Cardiovascular Exam Present: RRR <Susan Hernandez 02/07/21 08:41> - Routine Extremities Exam Present: pulses intact, amputation (Left hallux amputation ). Absent: calf tenderness <Susan Hernandez 02/07/21 08:41> Comments: 1+ posterior tibialis (L), 1+ dorsalis pedis (L), 1+ dorsalis pedis (R), 2+ posterior tibialis (R) <Susan Hernandez 02/07/21 08:41> - Detailed Lower Extremity Exam Top foot image: 1 - POD #3, S/P Left hallux amputation, sutures intact, small amount of bloody drainage noted. There still is some erythema and edema this morning. Site cleaned with Betadine, Vaseline gauze placed on sutures, Betadine soaked 4 x 4, dry 4 x 4, Kerlix and [place] wrap applied. <Susan Hernandez 02/07/21 08:41> - Routine Back/Spine/Pelvis Exam Back/Spine: Present: full ROM <Susan Hernandez 02/07/21 08:41> - Routine Skin Exam Present: erythema (erythema noted to left hallux amp site.), dry, wounds (s/p left hallux amputation ) <Susan Hernandez 02/07/21 08:41> - Routine Neurological Exam Present: alert, oriented X3, moving all extremities, normal tone, vision grossly intact, hearing grossly intact, normal speech <Susan Hernandez 02/07/21 08:41> - Routine Psychiatric Exam Present: normal affect, cooperative <Susan Hernandez 02/07/21 08:41> Progress Note: A&P (1) COVID-19 Status: Ruled-out (2) Diabetes mellitus Status: Chronic (3) Osteomyelitis Status: Acute (4) SIRS (systemic inflammatory response syndrome) Status: Resolved <Susan Hernandez - 02/07/21 08:22> (1) COVID-19 Status: Ruled-out (2) Diabetes mellitus Status: Chronic (3) Osteomyelitis Status: Acute (4) SIRS (systemic inflammatory response syndrome) Status: Resolved <Tosha Guy - 02/07/21 09:16> Assessment and Plan for All Diagnoses:: Agree with documentation per [employer]. Patient today with a vancomycin and cefepime. Home health care for twice weekly dressing changes. Follow up with Podiatry 02/12/21 @1100 <Tosha Guy - 02/07/21 09:16> 02/05/21 Labs: WBC 14.1, ESR 92 (02/03/21), CRP.46.0 02/06/21 Labs WBC 11.5 CRP. 40.8 (05
[2021-02-07 08:28] LABS: Basophils # 0.1 K/mm3 (0-0.2); Basophils % 0.7 % (0.1-2.0); Eosinophils # 0.2 K/mm3 (0.0-0.4); Eosinophils % 2.4 % (0.1-12.0); Hematocrit 32.4 % (42.0-52.0); Hemoglobin 11.1 g/dL (14.1-18.0); Lymphocytes # 1.3 K/mm3 (0.7-4.5); Lymphocytes % 12.6 % (10-50); Mean Corpuscular HGB Conc 34.4 g/dL (31.8-35.4); Mean Corpuscular Hemoglobin 30.2 pg (27.0-31.2); Mean Corpuscular Volume 87.8 fl (80-94); Mean Platelet Volume 7.4 fl (7.4-10.4); Monocytes # 0.7 K/mm3 (0.1-1.0); Monocytes % 6.4 % (1.7-9.3); Neutrophils # 7.9 K/mm3 (1.8-7.8); Neutrophils % 77.9 % (37.0-80.0); Platelet Count 316 K/mm3 (142-424); Red Blood Count 3.69 M/mm3 (4.60-6.20); Red Cell Distribution Width 14.2 % (11.5-17.5); White Blood Count 10.1 K/mm3 (4.8-10.8)
[2021-02-07 08:34] LABS: Anion Gap 8.1 mEq/L (5-15); Blood Urea Nitrogen 11 mg/dl (9-20); Carbon Dioxide 30 mmol/L (22.0-30.0); Chloride 105 mmol/L (98-107); Creatinine Clearance Estimated 73 mL/min (50-200); Estimated Glomerular Filt Rate 109 ml/min (>60); GFR (African American) 132 ML/MIN (>60); Glucose 268 mg/dl (74-100); Potassium 4.1 mmoL/L (3.5-5.1); Sodium 139 mmol/L (136-145)
[2021-02-07 11:07] LABS: POC Glucose,Bedside 388 (70-110)
== END 2021-02-07 16:12 | disposition home health service (06) | DRG 616 ==
LOC: ER 20:12 → 2ND 22:50
PROVIDERS: Internal Medicine Adolescent Medicine; Podiatrist; Admitting Provider Emergency Medicine; Emergency Provider Emergency Medicine; PCP Internal Medicine Adolescent Medicine; Visit Provider Internal Medicine Adolescent Medicine
PROC: 0Y6Q0Z3 Detachment at Left 1st Toe, Low, Open Approach (ICD-10-PCS; principal; 2021-02-04 14:45)
DX: E11.69 Type 2 diabetes mellitus with other specified complication (principal); A48.0 Gas gangrene; M84.48XA Pathological fracture, other site, initial encounter for fracture; M86.9 Osteomyelitis, unspecified; K92.1 Melena; Z79.4 Long term (current) use of insulin; I25.10 Atherosclerotic heart disease of native coronary artery without angina pectoris; Z87.891 Personal history of nicotine dependence; L03.032 Cellulitis of left toe; M19.072 Primary osteoarthritis, left ankle and foot; E11.621 Type 2 diabetes mellitus with foot ulcer; F32.9 Major depressive disorder, single episode, unspecified; I10 Essential (primary) hypertension; E05.90 Thyrotoxicosis, unspecified without thyrotoxic crisis or storm; L89.309 Pressure ulcer of unspecified buttock, unspecified stage; W19.XXXA Unspecified fall, initial encounter
CPT/HCPCS: 28124; 28045; 36569; 36415; 71045; 73630; 73700; 74177; 80048; 80053; 80202; 81001; 82150; 82272; 82962; 83036; 83605; 83690; 83735; 84145; 85007; 85025; 85651; 86140; 86328; 87040; 87070; 87075; 87077; 87186; 87205; 87581; 87633; 87798; 88305; 88311; 93306; 93923; 94761; 96365; 97116; 97161; 99284; C1751; G0328; J2405; J3370; Q9967; U0003

== ENCOUNTER → 2021-02-08 10:13 | Outpatient (CLI) | payer MEDICARE, SELFPAY ==
[2021-02-08 13:49] LABS: Basophils # 0.1 K/mm3 (0-0.2); Basophils % 1.1 % (0.1-2.0); Eosinophils # 0.3 K/mm3 (0.0-0.4); Eosinophils % 3.1 % (0.1-12.0); Hematocrit 33.2 % (42.0-52.0); Hemoglobin 11.1 g/dL (14.1-18.0); Lymphocytes # 1.4 K/mm3 (0.7-4.5); Lymphocytes % 12.6 % (10-50); Mean Corpuscular HGB Conc 33.5 g/dL (31.8-35.4); Mean Corpuscular Hemoglobin 29.8 pg (27.0-31.2); Mean Corpuscular Volume 88.7 fl (80-94); Monocytes # 0.8 K/mm3 (0.1-1.0); Monocytes % 6.8 % (1.7-9.3); Neutrophils # 8.4 K/mm3 (1.8-7.8); Neutrophils % 76.4 % (37.0-80.0); Platelet Count 341 K/mm3 (142-424); Red Blood Count 3.74 M/mm3 (4.60-6.20); Red Cell Distribution Width 14.1 % (11.5-17.5)
[2021-02-08 14:02] LABS: Anion Gap 7.4 mEq/L (5-15); Blood Urea Nitrogen 11 mg/dl (9-20); Calcium 8.9 mg/dl (8.4-10.2); Carbon Dioxide 31 mmol/L (22.0-30.0); Chloride 106 mmol/L (98-107); Estimated Glomerular Filt Rate 130 ml/min (>60); GFR (African American) 158 ML/MIN (>60); Glucose 112 mg/dl (74-100); Potassium 4.4 mmoL/L (3.5-5.1); Sodium 140 mmol/L (136-145)
[2021-02-08 14:19] LABS: Vancomycin,Trough 15.6 ug/mL (5.0-10.0)
== END ==
PROVIDERS: Visit Provider Internal Medicine Adolescent Medicine
DX: L03.032 Cellulitis of left toe (principal); M86.9 Osteomyelitis, unspecified
CPT/HCPCS: 80048; 80202; 85025

== ENCOUNTER → 2021-02-11 10:17 | Outpatient (CLI) | payer MEDICARE, SELFPAY ==
[2021-02-11 13:54] LABS: Basophils # 0.2 K/mm3 (0-0.2); Basophils % 1.5 % (0.1-2.0); Eosinophils # 0.5 K/mm3 (0.0-0.4); Eosinophils % 3.9 % (0.1-12.0); Hematocrit 35.4 % (42.0-52.0); Hemoglobin 11.7 g/dL (14.1-18.0); Lymphocytes # 1.6 K/mm3 (0.7-4.5); Lymphocytes % 12.9 % (10-50); Mean Corpuscular Hemoglobin 29.6 pg (27.0-31.2); Mean Corpuscular Volume 89.8 fl (80-94); Mean Platelet Volume 7.5 fl (7.4-10.4); Monocytes # 0.8 K/mm3 (0.1-1.0); Monocytes % 6.8 % (1.7-9.3); Neutrophils # 8.9 K/mm3 (1.8-7.8); Neutrophils % 74.9 % (37.0-80.0); Platelet Count 325 K/mm3 (142-424); Red Blood Count 3.94 M/mm3 (4.60-6.20); Red Cell Distribution Width 14.7 % (11.5-17.5); White Blood Count 11.9 K/mm3 (4.8-10.8)
[2021-02-11 13:58] LABS: Chloride 102 mmol/L (98-107)
[2021-02-11 13:59] LABS: Potassium 4.2 mmoL/L (3.5-5.1); Sodium 137 mmol/L (136-145)
[2021-02-11 14:02] LABS: Anion Gap 10.2 mEq/L (5-15); Blood Urea Nitrogen 13 mg/dl (9-20); Calcium 9.3 mg/dl (8.4-10.2); Carbon Dioxide 29 mmol/L (22.0-30.0); Estimated Glomerular Filt Rate 130 ml/min (>60); GFR (African American) 158 ML/MIN (>60); Glucose 105 mg/dl (74-100)
[2021-02-11 14:08] LABS: Vancomycin,Trough 16.5 ug/mL (5.0-10.0)
== END ==
PROVIDERS: Visit Provider Internal Medicine Adolescent Medicine
DX: M86.9 Osteomyelitis, unspecified (principal); E11.9 Type 2 diabetes mellitus without complications; Z79.4 Long term (current) use of insulin; Z51.81 Encounter for therapeutic drug level monitoring
CPT/HCPCS: 80048; 80202; 85025

== ENCOUNTER → 2021-02-18 10:21 | Outpatient (CLI) | payer MEDICARE, SELFPAY ==
[2021-02-18 11:14] LABS: Chloride 102 mmol/L (98-107)
[2021-02-18 11:15] LABS: Potassium 4.9 mmoL/L (3.5-5.1); Sodium 139 mmol/L (136-145)
[2021-02-18 11:17] LABS: Alanine Aminotransferase 25 U/L (12-78); Alkaline Phosphatase 126 U/L (38-126); Aspartate Amino Transferase 20 U/L (17-59); Bilirubin,Total 0.6 mg/dl (0.2-1.3); Blood Urea Nitrogen 18 mg/dl (9-20); Estimated Glomerular Filt Rate 109 ml/min (>60); GFR (African American) 132 ML/MIN (>60)
[2021-02-18 11:18] LABS: Albumin Level 4.1 g/dl (3.5-5.0); Albumin/Globulin Ratio 1.5 (1.1-1.8); Anion Gap 9.9 mEq/L (5-15); Calcium 10.1 mg/dl (8.4-10.2); Carbon Dioxide 32 mmol/L (22.0-30.0); Globulin 2.7 g/dL (1.3-3.2); Glucose 218 mg/dl (74-100); Total Protein,Serum 6.8 g/dl (6.3-8.2)
[2021-02-18 11:23] LABS: C-Reactive Protein 1.2 mg/L (0-4)
[2021-02-18 11:51] LABS: Erythrocyte Sedimentation Rate > 140 mm/hr (0-20)
[2021-02-18 11:55] LABS: Basophils # 0.2 K/mm3 (0-0.2); Basophils % 2.2 % (0.1-2.0); Eosinophils # 0.4 K/mm3 (0.0-0.4); Eosinophils % 4.6 % (0.1-12.0); Hematocrit 39.8 % (42.0-52.0); Hemoglobin 12.5 g/dL (14.1-18.0); Lymphocytes # 1.5 K/mm3 (0.7-4.5); Lymphocytes % 15.9 % (10-50); Mean Corpuscular HGB Conc 31.5 g/dL (31.8-35.4); Mean Corpuscular Volume 92.3 fl (80-94); Mean Platelet Volume 7.2 fl (7.4-10.4); Monocytes # 0.9 K/mm3 (0.1-1.0); Monocytes % 9.5 % (1.7-9.3); Neutrophils # 6.2 K/mm3 (1.8-7.8); Neutrophils % 67.9 % (37.0-80.0); Platelet Count 281 K/mm3 (142-424); Red Blood Count 4.32 M/mm3 (4.60-6.20); Red Cell Distribution Width 15.2 % (11.5-17.5); White Blood Count 9.2 K/mm3 (4.8-10.8)
== END ==
PROVIDERS: Visit Provider Nurse Practitioner
DX: M86.9 Osteomyelitis, unspecified (principal); Z98.890 Other specified postprocedural states
CPT/HCPCS: 36415; 80053; 85025; 85651; 86140

== ENCOUNTER 2021-03-03 12:24 | Emergency (ER) | payer MEDICARE, SELFPAY ==
[2021-03-03 12:24] VITALS: BP 166/65; PULSE 62; RESP 17; TEMP 36.7; O2SAT 96; BMI 24.4
--- NOTE | 2021-03-03 12:29 | HMH.EDGENADL ---
ED Disposition Clinical Impression: Hypoglycemic episode in patient with diabetes mellitus Disposition: Home, Self-Care Condition on Discharge: Good Instructions: DI for Hypoglycemia, How to Check Your Blood Glucose Additional Instructions: You have been evaluated for hypoglycemia. Please only take morning insulin if you are sure you are going to be eating breakfast. Please try checking your blood sugar in the evening. Decrease your nightly insulin if your blood glucose is low. Do not take insulin at night if you are hypoglycemic. Follow-up with Dr. Grey in clinic early this week. Return to the emergency department at once for any new or worsening symptoms. Time of Disposition: 14:27 - Critical Care Critical Care Time: No Attestation: On , the high probability of a clinically significant, sudden or life threatening deterioration of the following system(s) required my full and direct attention, intervention and personal management. The time I documented below is in addition to time spent performing reported procedures but includes the following listed in this critical care notation. Medical Decision Making - Medical Records Medical records reviewed: Yes: I reviewed the patient's medical records. - Juan Carlos Inquiry Pt receiving controlled substance: No Vital Signs: 03/03/21 12:24 Temperature 98.1 F Temperature Source Oral Pulse Rate [Right] 62 Respiratory Rate 17 Blood Pressure [Right Arm] 166/65 H Blood Pressure Mean [Right Arm] 98 02 Sat by Pulse Oximetry 96 Oxygen Delivery Method Room Air - Lab Data Lab Results 03/03/21 12:16: WBC 11.7 H, RBC 4.47 L, Hgb 13.2 L, Hct 39.5 L, MCV 88.4, MCH 29.6, MCHC 33.5, RDW 14.8, Plt Count 198, MPV 7.9, Neut % (Auto) 76.1, Lymph % (Auto) 13.2, [place] % (Auto) 6.8, Eos % (Auto) 2.8, Baso % (Auto) 1.1, Neut # (Auto) 8.9 H, Lymph # (Auto) 1.5, [place] # (Auto) 0.8, Eos # (Auto) 0.3, Baso # (Auto) 0.1 03/03/21 12:16: Sodium 139, Potassium 4.1, Chloride 103, Carbon Dioxide 32 H, Anion Gap 8.1, BUN 19, Creatinine 0.70, Estimated Creat Clear 70, Estimated GFR 109, Est GFR ( Amer) 132, Glucose 89, Calcium 9.2, Total Bilirubin 1.0, AST 20, ALT 23, Alkaline Phosphatase 103, Total Protein 6.7, Albumin 4.0, Globulin 2.7, Albumin/Globulin Ratio 1.5 03/03/21 12:16: Plasma/Serum Alcohol < 10 03/03/21 12:28: VBG pH 7.38, VBG pCO2 49.3, VBG pO2 57.9 H, VBG HCO3 28.2, VBG Total CO2 29.8 H, VBG O2 Saturation 89.4 H, VBG Base Excess 3.1 H 03/03/21 14:08: Urine Color Yellow, Urine Appearance Clear, Urine pH 7.0, Ur Specific [place] 1.020, Urine Protein Trace, Urine Glucose (UA) 1+, Urine Ketones Negative, Urine Blood Negative, Urine Nitrate Negative, Urine Bilirubin Negative, Urine Urobilinogen 1.0, Ur Leukocyte Esterase Negative, Urine RBC None, Urine WBC 3-5, Ur Squamous Epith Cells Occasional, Urine Bacteria None Result diagrams: 03/03/21 12:16 03/03/21 12:16 Orders (Tests/Meds): ORDERS Category Date Time Status Lactic Acid Stat Lab 03/03/21 12:28 Ordered Medical Decision Narrative: In summary this is a 80-year-old male with history of type 2 diabetes presenting to the emergency department after hypoglycemic episode. Patient stable on arrival. Vital signs within normal limits. Fingerstick glucose 117. He is conversational. Has no complaints at this time. Will obtain routine screening laboratory work including CBC, CMP, VBG, lactic acid. Initial laboratory results are reassuring. White count is 11,000. This is significantly improved from his sepsis 3 weeks ago. He is no longer on PICC line antibiotics. Other laboratory results reassuring. No renal insufficiency. Electrolytes within normal limits. Urinalysis shows glucose. No signs of infection. Patient remained well in the emergency department. Conversational. No acute distress. He takes 40 units of long-acting insulin at night and 20 units in the morning. Says he had not eaten breakfast yet today. Repeat fing
--- NOTE | 2021-03-03 12:30 | PC.NURSE ---
BLOOD GLUCOSE: 117, MD MADE AWARE
[2021-03-03 12:39] LABS: Basophils # 0.1 K/mm3 (0-0.2); Basophils % 1.1 % (0.1-2.0); Eosinophils # 0.3 K/mm3 (0.0-0.4); Eosinophils % 2.8 % (0.1-12.0); Hematocrit 39.5 % (42.0-52.0); Hemoglobin 13.2 g/dL (14.1-18.0); Lymphocytes # 1.5 K/mm3 (0.7-4.5); Lymphocytes % 13.2 % (10-50); Mean Corpuscular HGB Conc 33.5 g/dL (31.8-35.4); Mean Corpuscular Hemoglobin 29.6 pg (27.0-31.2); Mean Corpuscular Volume 88.4 fl (80-94); Mean Platelet Volume 7.9 fl (7.4-10.4); Monocytes # 0.8 K/mm3 (0.1-1.0); Monocytes % 6.8 % (1.7-9.3); Neutrophils # 8.9 K/mm3 (1.8-7.8); Neutrophils % 76.1 % (37.0-80.0); Platelet Count 198 K/mm3 (142-424); Red Blood Count 4.47 M/mm3 (4.60-6.20); Red Cell Distribution Width 14.8 % (11.5-17.5); White Blood Count 11.7 K/mm3 (4.8-10.8)
--- NOTE | 2021-03-03 12:42 | PC.NURSE ---
CALLED RESPIRATORY ABOUT BLOOD GAS ORDERED
[2021-03-03 12:46] LABS: Alanine Aminotransferase 23 U/L (12-78); Albumin/Globulin Ratio 1.5 (1.1-1.8); Alkaline Phosphatase 103 U/L (38-126); Anion Gap 8.1 mEq/L (5-15); Aspartate Amino Transferase 20 U/L (17-59); Blood Urea Nitrogen 19 mg/dl (9-20); Calcium 9.2 mg/dl (8.4-10.2); Carbon Dioxide 32 mmol/L (22.0-30.0); Chloride 103 mmol/L (98-107); Creatinine Clearance Estimated 70 mL/min (50-200); Estimated Glomerular Filt Rate 109 ml/min (>60); GFR (African American) 132 ML/MIN (>60); Globulin 2.7 g/dL (1.3-3.2); Glucose 89 mg/dl (74-100); Potassium 4.1 mmoL/L (3.5-5.1); Sodium 139 mmol/L (136-145); Total Protein,Serum 6.7 g/dl (6.3-8.2)
[2021-03-03 12:47] LABS: Ethyl Alcohol < 10 mg/dl (0-10)
[2021-03-03 13:19] LABS: VBG Base Excess 3.1 mmol/L (-2.4-2.3); VBG HCO3 28.2 mmol/L (23-30); VBG Oxygen Saturation 89.4 % (50-70); VBG PCO2 49.3 mmol/L (35-51); VBG PH 7.38 mmol/L (7.31-7.41); VBG PO2 57.9 mmol/L (28-40); VBG Total CO2 29.8 mmol/L (23-27)
[2021-03-03 14:12] LABS: Microscopic, Urine URINE MICROSCOPIC (MICROSCOPIC)
[2021-03-03 14:13] LABS: Appearance,Urine CLEAR (Clear); Bilirubin,Urine Negative (Negative); Blood, Urine Negative (Negative); Color,Urine YELLOW (Yellow); Glucose,Urine (UA) 1+ (Negative); Ketones,Urine Negative (Negative); Leukocyte Esterase,Urine Negative (Negative); Nitrate,Urine Negative (Negative); Protein,Urine TRACE (Negative)
[2021-03-03 14:20] LABS: Squamous Epithelial Cell,Urine Occasional #/hpf (0-5)
[2021-03-03 14:30] VITALS: BP 140/59; PULSE 68; RESP 18; TEMP 36.8; O2SAT 96
[2021-03-03 14:34] VITALS: BP 140/59; PULSE 64; O2SAT 97
[2021-03-03 14:39] LABS: Lactic Acid 1.6 mmol/L (0.7-2.1)
[2021-03-03 14:41] LABS: POC Glucose,Bedside 239 (70-110)
[2021-03-18 11:56] LABS: POC Glucose,Bedside 117 (70-110)
== END 2021-03-03 15:00 | disposition home or self-care (01) ==
PROVIDERS: Emergency Provider Emergency Medicine; PCP Internal Medicine Adolescent Medicine
DX: E10.649 Type 1 diabetes mellitus with hypoglycemia without coma (principal); I10 Essential (primary) hypertension; E78.5 Hyperlipidemia, unspecified; E03.9 Hypothyroidism, unspecified; I25.10 Atherosclerotic heart disease of native coronary artery without angina pectoris; Z79.899 Other long term (current) drug therapy
CPT/HCPCS: 80053; 81001; 82803; 82962; 83605; 85025; 99282

== ENCOUNTER 2021-03-05 17:11 | Observation (INO) | payer MEDICARE, SELFPAY ==
[2021-03-05 17:23] VITALS: BMI 25.7
--- NOTE | 2021-03-05 17:26 | XR_ITS ---
PROCEDURE: XR ABDOMEN MIN 2V CLINICAL INDICATION: obstipation COMPARISON: No exams were available for comparison FINDINGS: There is a moderate amount of retained colonic feces. There is a Loera catheter present with the tip projecting over the mid pelvic region. No evidence of intestinal obstruction. Vascular calcification is present. There is lumbar scoliosis convex left. In the right upper abdominal region a metallic staple density and a small transverse silverio shaped opacity with a circular density at the mid aspect projecting 1 superiorly and 1 inferiorly consistent with an artifact that the patient is lying upon according to the technologist note. No acute bony findings. There are few air-fluid levels in the right upper quadrant. No evidence of free air. There are degenerative changes in the lumbar spine with mild lumbar scoliosis convex left. IMPRESSION: Constipation. Dictated by: Lele Silvestre MD 03/06/2021 14:44 Lele Silvestre MD in [place] 03/06/2021 14:44
[2021-03-05 18:02] VITALS: BP 150/70; PULSE 70; RESP 18; O2SAT 98
--- NOTE | 2021-03-05 18:02 | PC.NURSE ---
pt boarding in ER waiting on an available bed. Pt is alert, oriented x3, ambulated per walker. Pt family with him. pt has a skin tear to RUE, pt reports he fell this morning, no active bleeding noted. Dressing in place upon arrival to ED
[2021-03-05 18:22] LABS: Microscopic, Urine URINE MICROSCOPIC (MICROSCOPIC)
[2021-03-05 18:30] LABS: Lactic Acid 1.2 mmol/L (0.7-2.1)
[2021-03-05 18:38] LABS: Basophils # 0.1 K/mm3 (0-0.2); Basophils % 0.6 % (0.1-2.0); Eosinophils # 0.1 K/mm3 (0.0-0.4); Eosinophils % 0.9 % (0.1-12.0); Hematocrit 40.6 % (42.0-52.0); Hemoglobin 13.5 g/dL (14.1-18.0); Lymphocytes # 0.9 K/mm3 (0.7-4.5); Lymphocytes % 6.5 % (10-50); Mean Corpuscular HGB Conc 33.2 g/dL (31.8-35.4); Mean Corpuscular Hemoglobin 29.9 pg (27.0-31.2); Mean Corpuscular Volume 89.9 fl (80-94); Mean Platelet Volume 7.5 fl (7.4-10.4); Monocytes # 0.8 K/mm3 (0.1-1.0); Neutrophils # 11.4 K/mm3 (1.8-7.8); Platelet Count 198 K/mm3 (142-424); Red Blood Count 4.52 M/mm3 (4.60-6.20); Red Cell Distribution Width 14.6 % (11.5-17.5); White Blood Count 13.2 K/mm3 (4.8-10.8)
[2021-03-05 18:42] LABS: MANUAL DIFFERENTIAL MANUAL DIFFERENTIAL (MANUAL DIFF)
[2021-03-05 18:43] LABS: Alanine Aminotransferase 22 U/L (12-78); Albumin Level 4.2 g/dl (3.5-5.0); Albumin/Globulin Ratio 1.5 (1.1-1.8); Alkaline Phosphatase 130 U/L (38-126); Anion Gap 10.2 mEq/L (5-15); Aspartate Amino Transferase 23 U/L (17-59); Bilirubin,Total 1.1 mg/dl (0.2-1.3); Blood Urea Nitrogen 20 mg/dl (9-20); Calcium 9.2 mg/dl (8.4-10.2); Carbon Dioxide 26 mmol/L (22.0-30.0); Chloride 103 mmol/L (98-107); Creatinine Clearance Estimated 72 mL/min (50-200); Estimated Glomerular Filt Rate 130 ml/min (>60); GFR (African American) 158 ML/MIN (>60); Globulin 2.8 g/dL (1.3-3.2); Glucose 316 mg/dl (74-100); Magnesium 1.5 mg/dl (1.6-2.3); Potassium 4.2 mmoL/L (3.5-5.1); Sodium 135 mmol/L (136-145)
[2021-03-05 18:46] VITALS: BP 136/69; PULSE 74; RESP 18; TEMP 36.9; O2SAT 97; BMI 25.5
[2021-03-05 18:47] LABS: Appearance,Urine CLEAR (Clear); Bilirubin,Urine Negative (Negative); Blood, Urine Negative (Negative); Color,Urine YELLOW (Yellow); Glucose,Urine (UA) 1+ (Negative); Ketones,Urine Negative (Negative); Leukocyte Esterase,Urine Negative (Negative); Nitrate,Urine Negative (Negative); Protein,Urine 1+ (Negative); Specific Gravity, Urine 1.025 (1.005-1.030); Urobilinogen,Urine 0.2 EU/dl (0.2)
[2021-03-05 20:00] VITALS: BP 156/67; PULSE 73; RESP 16; TEMP 37.1; O2SAT 97
[2021-03-05 20:05] LABS: Lymphocytes % 7 % (10-50); Monocytes % 6 % (2-9); Neutrophils % 87 % (42-76); Total Cells Counted 100
[2021-03-05 20:09] LABS: Platelet Estimate Slight Decrease; RBC Morphology Normal
[2021-03-05 20:44] LABS: Adenovirus,PCR Not Detected (NotDetected); Bordetella Pertussis Not Detected (NotDetected); Chlamydophila Pneumoniae, PCR Not Detected (NotDetected); Coronavirus 19, PCR Not Detected (NotDetected); Coronavirus 229E Not Detected (NotDetected); Coronavirus NL63 Not Detected (NotDetected); Coronavirus OC43 Not Detected (NotDetected); Coronovirus HKU1,PCR Not Detected (NotDetected); Human Metapneumovirus Not Detected (NotDetected); Influenza A, PCR Not Detected (NotDetected); Influenza AH1, 2009 Not Detected (NotDetected); Influenza AH1, PCR Not Detected (NotDetected); Influenza AH3,PCR Not Detected (NotDetected); Influenza B, PCR Not Detected (NotDetected); Mycoplasma Pneumoniae, PCR Not Detected (NotDetected); Parainfluenza 1, PCR Not Detected (NotDetected); Parainfluenza 2, PCR Not Detected (NotDetected); Parainfluenza 3, PCR Not Detected (NotDetected); Parainfluenza 4, PCR Not Detected (NotDetected); Respiratory Syncytial Virus Not Detected (NotDetected); Rhinovirus/Enterovirus Not Detected (NotDetected)
[2021-03-06 00:57] LABS: POC Glucose,Bedside 282 (70-110)
--- NOTE | 2021-03-06 01:38 | PC.NURSE ---
unable to complete med rec at this time. pt unaware of daily meds
--- NOTE | 2021-03-06 02:49 | PC.WOUNDNOTE ---
right arm, dressing applied, CDI.
--- NOTE | 2021-03-06 02:50 | PC.WOUNDNOTE ---
Left toe no drainage noted, dressing applied, CDI.
--- NOTE | 2021-03-06 03:25 | PC.NURSE ---
A/O X4. Pt was a direct admit from . pt has no complains of pain, slept well this shift. milian in place draining dark yellow, clear urine. VSS. Left foot dressing is clear of drainage, and intact. Has post-op shoe on left foot. pt is able to make needs known to staff. IV patent, call light in reach, no concerns at this time.
[2021-03-06 04:00] VITALS: BP 159/64; PULSE 67; RESP 17; TEMP 36.7; O2SAT 97
[2021-03-06 05:40] VITALS: BMI 25.4
[2021-03-06 06:02] LABS: POC Glucose,Bedside 231 (70-110)
--- NOTE | 2021-03-06 07:16 | P.CONPHA_ITS ---
[facility] Pharmacy VTE Monitoring - Patient Demographics Admission date: 03/05/21 Report Date: 03/06/21 Time: 07:16 Allergies/Adverse Reactions: Patient Allergies No Known Allergies Allergy (Verified 02/18/21 09:31) Height: 1.8 m Weight: 82.299 kg - VTE Risk Labs: VTE Related Lab Results Hgb 13.5 g/dL (14.1-18.0) L 03/05/21 17:50 Hct 40.6 % (42.0-52.0) L 03/05/21 17:50 Plt Count 198 K/mm3 (142-424) 03/05/21 17:50 BUN 20 mg/dl (9-20) 03/05/21 17:50 Creatinine 0.60 mg/dl (0.66-1.25) L 03/05/21 17:50 Estimated Creat Clear 72 mL/min (50-200) 03/05/21 17:50 - Prophylaxis VTE Prophylaxis Ordered?: Yes Types of VTE Prophylaxis: TEDS Knee High
--- NOTE | 2021-03-06 07:19 | HMH.PHAINT ---
CLARIFIED HOME MED LIST WITH OUTPATIENT PHARMACY AND USING PT INTERVIEW
--- NOTE | 2021-03-06 07:23 | ECG_ITS ---
APPROVED REPORT Exam: Resting ECG HR:68 bpm ECG Measurements Heart Rate 68 AXES NJ 146 P 73 QRSd 94 QRS 51 QT 418 T 27 QTc 444 Conclusion Normal sinus rhythm Normal ECG Electronically signed by : Subhash Grey, 03/06/2021 17:56:35
--- NOTE | 2021-03-06 07:34 | HMH.HP ---
*Admission Date: 03/05/21 *Chief complaint: Urinary retention sleep, frequent falls, obstipation *History of present illness: 80-year-old white male with diabetes, diabetic foot ulcer status post recent amputation of his left great hallux, who presented to my office yesterday with 48 hours of worsening balance, frequent falls, skin tear in the right arm and inability to void over the past 36 hours. Had actually presented to the emergency department here 36 hours ago with combativeness and behavior change, had been found to be hypoglycemic. Labs and urinalysis were reportedly normal, but he had failed to improve over the next 36 hours, although mental status had cleared. No urine or stool output noted even though patient felt the urge to void and have a bowel movement. In the office he was weak, distended bladder noted on physical exam. Admitted observation for Loera catheter insertion, lab work and evaluation for further therapy. [facility] History I have reviewed the patient's past medical history: Yes Medical History: Reports:: Atherosclerotic Heart Disease, Diabetes Mellitus Type 1, Diabetes Mellitus Type 2, Hyperlipidemia, Hypertension, Renal Insufficiency *Have you ever received a pneumonia vaccine?: Yes *Have you received a flu vaccine this season?: Yes Other Medical History: Reports: Thyroid Disease Other Surgeries: Yes: Hernia Repair Amputation: Yes (left great toe) - *Social History Smoking Status: Former smoker Alcohol Intake: never Substance Use Type: denies use *Occupational Status:: retired Housing: house Household Members: spouse *Travel in the last 8 weeks: None Family Hx:: Unable to obtain Review of Systems - Review of Systems Review of systems:: pertinent systems reviewed and negative unless documented below Patient denies chest pain or dyspnea, denies vomiting. Constipation and diminished urine output as noted. Denies significant pain. Meds Home Medications Medication Instructions Recorded Confirmed Type Atorvastatin Calcium [Lipitor 80mg 80 mg PO HS 02/03/21 03/06/21 History Tablet*] Escitalopram Oxalate 10 mg PO DAILY 02/03/21 03/06/21 History Insulin Detemir [Levemir 40 units SQ HS 02/03/21 03/06/21 History 100units/mL 3mL flexpen] Insulin Glargine/Lixisenatide 20 units SQ DAILY 02/03/21 03/06/21 History [[place] 100 Unit-33 Mcg/ml Pen] propylthiouraciL [Propylthiouracil] 50 mg PO TID 02/03/21 03/06/21 History Allergies Allergy/AdvReac Type Severity Reaction Status Date / Time No Known Allergies Allergy Verified 02/18/21 09:31 Exam Vital signs and Labs for Last 24 Hours: Temp Pulse Resp BP Pulse Ox 98.1 F 67 17 159/64 H 97 03/06/21 04:00 03/06/21 04:00 03/06/21 04:00 03/06/21 04:00 03/06/21 04:00 Laboratory Results - last 24 hr 03/05/21 17:43: Urine Color Yellow, Urine Appearance Clear, Urine pH 6.0, Ur Specific [place] 1.025, Urine Protein 1+, Urine Glucose (UA) 1+, Urine Ketones Negative, Urine Blood Negative, Urine Nitrate Negative, Urine Bilirubin Negative, Urine Urobilinogen 0.2, Ur Leukocyte Esterase Negative 03/05/21 17:50: WBC 13.2 H, RBC 4.52 L, Hgb 13.5 L, Hct 40.6 L, MCV 89.9, MCH 29.9, MCHC 33.2, RDW 14.6, Plt Count 198, MPV 7.5, Neut % (Auto) 86.0 H, Lymph % (Auto) 6.5 L, [place] % (Auto) 6.0, Eos % (Auto) 0.9, Baso % (Auto) 0.6, Neut # (Auto) 11.4 H, Lymph # (Auto) 0.9, [place] # (Auto) 0.8, Eos # (Auto) 0.1, Baso # (Auto) 0.1, Total Counted 100, Neutrophils % (Manual) 87 H, Lymphocytes % (Manual) 7 L, Monocytes % (Manual) 6, Platelet Estimate Slight decrease, RBC Morphology Normal 03/05/21 17:50: Sodium 135 L, Potassium 4.2, Chloride 103, Carbon Dioxide 26, Anion Gap 10.2, BUN 20, Creatinine 0.60 L, Estimated Creat Clear 72, Estimated GFR 130, Est GFR ( Amer) 158, Glucose 316 H, Calcium 9.2, Magnesium 1.5 L, Total Bilirubin 1.1, AST 23, ALT 22, Alkaline Phosphatase 130 H, Total Protein 7.0, Albumin 4.2, Globulin 2.8, Albumin/Globulin Ratio 1.5 03/05/21 17
[2021-03-06 08:00] VITALS: BP 146/71; PULSE 67; RESP 18; TEMP 36.9; O2SAT 96
--- NOTE | 2021-03-06 08:12 | HMH.ACPN2 ---
Internal Medicine - PN: Subj *Date: 03/06/21 *Time: 08:12 Interval history: Patient feels little better overnight, has not yet had breakfast. Notes that he has had gas but no productive bowel movement. Feels much better with a urinary catheter in place. Exam Vital signs and Labs for Last 24 Hours: Temp Pulse Resp BP Pulse Ox 98.1 F 67 17 159/64 H 97 03/06/21 04:00 03/06/21 04:00 03/06/21 04:00 03/06/21 04:00 03/06/21 04:00 Laboratory Results - last 24 hr 03/05/21 17:43: Urine Color Yellow, Urine Appearance Clear, Urine pH 6.0, Ur Specific [place] 1.025, Urine Protein 1+, Urine Glucose (UA) 1+, Urine Ketones Negative, Urine Blood Negative, Urine Nitrate Negative, Urine Bilirubin Negative, Urine Urobilinogen 0.2, Ur Leukocyte Esterase Negative 03/05/21 17:50: WBC 13.2 H, RBC 4.52 L, Hgb 13.5 L, Hct 40.6 L, MCV 89.9, MCH 29.9, MCHC 33.2, RDW 14.6, Plt Count 198, MPV 7.5, Neut % (Auto) 86.0 H, Lymph % (Auto) 6.5 L, [place] % (Auto) 6.0, Eos % (Auto) 0.9, Baso % (Auto) 0.6, Neut # (Auto) 11.4 H, Lymph # (Auto) 0.9, [place] # (Auto) 0.8, Eos # (Auto) 0.1, Baso # (Auto) 0.1, Total Counted 100, Neutrophils % (Manual) 87 H, Lymphocytes % (Manual) 7 L, Monocytes % (Manual) 6, Platelet Estimate Slight decrease, RBC Morphology Normal 03/05/21 17:50: Sodium 135 L, Potassium 4.2, Chloride 103, Carbon Dioxide 26, Anion Gap 10.2, BUN 20, Creatinine 0.60 L, Estimated Creat Clear 72, Estimated GFR 130, Est GFR ( Amer) 158, Glucose 316 H, Calcium 9.2, Magnesium 1.5 L, Total Bilirubin 1.1, AST 23, ALT 22, Alkaline Phosphatase 130 H, Total Protein 7.0, Albumin 4.2, Globulin 2.8, Albumin/Globulin Ratio 1.5 03/05/21 17:50: Lactate 1.2 03/05/21 17:58: Chlamy pneumoniae PCR Not detected, Adenovirus (PCR) Not detected, B. pertussis DNA (PCR) Not detected, Coronavirus OC43 (PCR) Not detected, Coronavirus HKU1 (PCR) Not detected, Coronavirus 229E (PCR) Not detected, SARS-CoV-2 (PCR) Not detected, Coronavirus NL63 (PCR) Not detected, Human Metapneumovir PCR Not detected, Influenza A (H1) PCR Not detected, Influ A (H1N1/09) PCR Not detected, Influenza A (H3) PCR Not detected, Influenza Type A (PCR) Not detected, Influenza Type B (PCR) Not detected, M. pneumoniae (PCR) Not detected, Parainfluenza 1 (PCR) Not detected, Parainfluenza 2 (PCR) Not detected, Parainfluenza 3 (PCR) Not detected, Parainfluenza 4 (PCR) Not detected, RSV (PCR) Not detected, Entero/Rhino (PCR) Not detected 03/05/21 22:06: POC Glucose 282 H 03/06/21 05:53: POC Glucose 231 H I & O for Last 24 hours: Intake & Output 03/03/21 03/04/21 03/05/21 03/06/21 11:59 11:59 11:59 11:59 Output Total 2650 / 2650 Balance -2650 / -2650 Weight 181 lb 7 oz Narrative: Patient is alert, appears frail. Skin tear on right arm has been dressed appropriately. Loera catheter draining dark yellow urine. Lungs have good air movement, heart rate regular. Abdomen is softer, bladder distention has resolved. No neurologic deficits but globally weak. Foot wrapped in bandage. Assessment and Plan (1) Urinary retention Status: Acute Category: Medical Code(s): R33.9 - Retention of urine, unspecified (2) Constipation Status: Acute Category: Medical Code(s): K59.00 - Constipation, unspecified (3) Hypoglycemic episode in patient with diabetes mellitus Status: Acute Category: Medical Code(s): E11.649 - Type 2 diabetes mellitus with hypoglycemia without coma (4) Osteomyelitis Status: Acute Qualifiers: Category: Medical Code(s): M86.9 - Osteomyelitis, unspecified (5) Diabetes mellitus Status: Chronic Qualifiers: Category: Medical Code(s): E11.9 - Type 2 diabetes mellitus without complications - Assessment and plan all Dx Assessment and Plan for all problems:: Urinary retention treated with indwelling Loera. Check urinalysis. Hypomagnesemia, replace IV n.p.o. Constipation. Magnesium p.o. and fleets enema. PT/OT evaluation for
--- NOTE | 2021-03-06 09:23 | HMH.OTEV ---
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 Had actually presented to the emergency department here 36 hours ago with combativeness and behavior change, had been found to be hypoglycemic. Labs and urinalysis were reportedly normal, but he had failed to improve over the next 36 hours, although mental status had cleared. No urine or stool output noted even though patient felt the urge to void and have a bowel movement. In the office he was weak, distended bladder noted on physical exam. Admitted observation for Loera catheter insertion, lab work and evaluation for further therapy. [facility] History I have reviewed the patient's past medical history: Yes Medical History: Reports:: Atherosclerotic Heart Disease, Diabetes Mellitus Type 1, Diabetes Mellitus Type 2, Hyperlipidemia, Hypertension, Renal Insufficiency. Patient verbalize to live in [place] with and was
--- NOTE | 2021-03-06 10:37 | XR_ITS ---
PROCEDURE: XR FOOT WT BEARING LT 3V CLINICAL INDICATION: L Hallux amputation f/u osteomyelitis COMPARISON: CR XR FOOT LT MIN 3V from 02/04/2021 FINDINGS: Status post amputation at the 1st MTP joint with some mild soft tissue swelling at the stump site with bandage artifact. No destructive changes that would suggest acute osteomyelitis. There are mild degenerative changes at the tail 0 navicular and navicular cuneiform joint. There is a small calcaneal spur. IMPRESSION: Status post amputation at the 1st MTP joint as described above Dictated by: Lele Silvestre MD 03/06/2021 13:50 Lele Silvestre MD in [place] 03/06/2021 13:50
--- NOTE | 2021-03-06 12:01 | HMH.PTEV ---
Physical Therapy Evaluation Rehab PT IP Evaluation Start: 03/06/21 08:12 Freq: ONCE Status: Active Protocol: Document 03/06/21 11:58 DOROTHY (Rec: 03/06/21 12:01 PHORLORAINE [id number]) Subjective/History History History 80 yowm adm to [facility] with urinary retention and general weakness. He reports he does not live alone, only 1 step to enter, and he is independent with all mobility using his RW . Subjective Subjective He currently c/o pain from his milian catheter, but otherwise feeling better. Rehab PT IP Eval Objective Appearance Patient Behavior Appropriate Patient Orientation Person,Place,Time Difficulty following instructions none Speech Pattern Clear Ambulation Patient Able to Ambulate Yes Ambulation Observation IP General Gait Pattern Observation Wide Based Gait Ambulation Distance (feet) 40 Ambulation Assistive Device Rolling Walker Ambulation Ability Supervision/Stand by Balance Ability to Arise Able, uses arms to help Sitting Balance Steady, safe Standing Balance Steady, wide stance Dynamic Sitting Balance Ability Good Dynamic Standing Balance Ability Fair Transfers Bed Transfer Ability Supervision/Stand by Chair Transfer Ability Supervision/Stand by Sit to Stand Bed Transfer Ability Supervision/Stand by Sit to Stand Chair Transfer Ability Supervision/Stand by ROM All Extremities PT ROM Status WFL MMT All Extremities PT MMT WFL Rehab PT IP prob,goals,plan Problems Date of Evaluation: 03/06/21 Discharge Plan PT Discharge Plan Pt is currently at baseline for all mobility and is appropriate to return home once medically stable. G -code Required No Eval Complexity Eval Charge Codes 10415 - Moderate Complexity PHYSICIAN CERTIFICATION: I certify the specified therapy services for Aurelio Patton Jr are required, authorized, and reviewed every 30 days.
[2021-03-06 12:11] LABS: POC Glucose,Bedside 260 (70-110)
--- NOTE | 2021-03-06 12:56 | HMH.ORTHOCON ---
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 Had actually presented to the emergency department here 36 hours ago with combativeness and behavior change, had been found to be hypoglycemic. Labs and urinalysis were reportedly normal, but he had failed to improve over the next 36 hours, although mental status had cleared. No urine or stool output noted even though patient felt the urge to void and have a bowel movement. In the office he was weak, distended bladder noted on physical exam. Admitted observation for Loera catheter insertion, lab work and evaluation for further therapy. [facility] History I have reviewed the patient's past medical history: Yes Medical History: Reports:: Atherosclerotic Heart Disease, Diabetes Mellitus Type 1, Diabetes Mellitus Type 2, Hyperlipidemia, Hypertension, Renal Insufficiency *Have you ever received a pneumonia vaccine?: Yes *Have you received a flu vaccine this season?: Yes Other Medical History: Reports: Thyroid Disease Other Surgeries: Yes: Hernia Repair Amputation: Yes (left great toe) - *Social History Smoking Status: Former smoker Alcohol Intake: never Substance Use Type: denies use *Occupational Status:: retired Housing: house Household Members: spouse *Travel in the last 8 weeks: None Family Hx:: Unable to obtain Podiatry consulted today for follow up on his Left hallux amputation for osteomyelitis. Surgery was done on 02/04/21 and was last seen in office on 02/18/21 for his PostOp visit #2. Sutures are intact and the site has less erythema and edema from when Last in office and no drainage noted. Patient is getting Left foot xrays done and if no signs of OM then he may resume diet. Will dress the site with xeroform, betadine soaked 4x4, dry, kerlix and pasha wrap. [facility] History I have reviewed the patient's past medical history: Yes Medical History: Reports:: Atherosclerotic Heart Disease, Diabetes Mellitus Type 1, Diabetes Mellitus Type 2, Hyperlipidemia, Hypertension, Renal Insufficiency *Have you ever received a pneumonia vaccine?: Yes *Have you received a flu vaccine this season?: Yes Other Medical History: Reports: Thyroid Disease Other Surgeries: Yes: Hernia Repair Amputation: Yes (left great toe) - *Social History Smoking Status: Former smoker Alcohol Intake: never Substance Use Type: denies use *Occupational Status:: retired Housing: house Household Members: spouse *Travel in the last 8 weeks: None Family Hx:: Unable to obtain Review of Systems - Constitutional Reports fatigue - Eyes Denies change in vision - ENT Reports abnormal hearing - *Cardiovascular Denies chest pain, Denies shortness of breath - *Respiratory Denies cough, Denies shortness of breath - *Gastrointestinal Reports constipation - *Genitourinary Reports difficulty urinating - *Musculoskeletal Reports other (s/p L Hallux amputation 02/04/21) - Integumentary/Breasts Reports nail changes, Reports dry skin - *Neurologic Reports abnormal hearing, Reports localized weakness - Psychiatric Denies confusion, Denies irritability - Endocrine Denies cold intolerance - Hematologic/Lymphatic Reports easy bruising Meds Home Medications Medication Instructions Recorded Confirmed Type Atorvastatin Calcium [Lipitor 80mg 80 mg PO HS 02/03/21 03/06/21 History Tablet*] Escitalopram Oxalate 10 mg PO DAILY 02/03/21 03/06/21 History propylthiouraciL [Propylthiouracil] 50 mg PO TID 02/03/21 03/06/21 History Insulin Detemir [Levemir 20 units SQ HS 30 Days #1 pen 03/06/21 Rx 100units/mL 3mL flexpen] Magnesium Oxide [Magnesium] 400 mg PO BID #60 cap 03/06/21 Rx Tamsulosin HCl 0.4 mg P
[2021-03-06 14:05] VITALS: BMI 25.2
--- NOTE | 2021-03-06 14:24 | HMH.DCSUM ---
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 Had actually presented to the emergency department here 36 hours ago with combativeness and behavior change, had been found to be hypoglycemic. Labs and urinalysis were reportedly normal, but he had failed to improve over the next 36 hours, although mental status had cleared. No urine or stool output noted even though patient felt the urge to void and have a bowel movement. In the office he was weak, distended bladder noted on physical exam. Admitted observation for Loera catheter insertion, lab work and evaluation for further therapy. Hospital Course Hospital Course: Patient was admitted to hospital. Urinary catheter was placed with over 1.5 L of residual urine, patient felt much better with dramatic relief of abdominal pain. He was found to be relatively hypomagnesemic and magnesium infusions were given intravenously and p.o. magnesium was given along with a fleets enema which resolved his constipation problem. PT/OT evaluated him and felt that he was at his baseline and did not require skilled care admission and would continue to do well with home health evaluations. Podiatry looked at his amputation site, x-ray showed no evidence of worsening bony structure or osteomyelitis, recommended continuing dressing changes and following up as an outpatient. Patient was discharged home today with magnesium orally, tamsulosin to help urinary tract issues but he will continue to have his Loera catheter in until I see him in the office next week, and we will also recommend cutting his nighttime insulin dose in half because of his previous episodes of hypoglycemia. Objective Vital signs: Temp Pulse Resp BP Pulse Ox 98.4 F 67 18 146/71 H 96 03/06/21 08:00 03/06/21 08:00 03/06/21 08:00 03/06/21 08:00 03/06/21 08:00 no acute distress - *Routine HEENT Exam Head: Present: normocephalic Eye: Present: EOMI, PERRL ENT: Present: mucous membranes moist - *Routine Neck Exam Present: supple - *Routine Respiratory Exam Present: CTA bilaterally - *Routine Cardiovascular Exam Present: RRR - *Routine Abdominal Exam Present: soft, normoactive bowel sounds. Absent: tenderness - *Routine Exam Comments: Loera catheter in good position, draining yellow urine - *Routine Extremities Exam Absent: cyanosis, clubbing, edema Comments: Skin tear on right arm dressed appropriately. Foot status post amputation bandaged appropriately. - *Routine Skin Exam Present: warm. Absent: rash - Detailed Eye Exam Eyelids: Bilateral normal inspection Results Labs on day of discharge: Labs from last 24 hours 03/06/21 03/06/21 03/05/21 11:58 05:53 22:06 WBC RBC Hgb Hct MCV MCH MCHC RDW Plt Count MPV Neut % (Auto) Lymph % (Auto) [place] % (Auto) Eos % (Auto) Baso % (Auto) Neut # (Auto) Lymph # (Auto) [place] # (Auto) Eos # (Auto) Baso # (Auto) Total Counted Neutrophils % (Manual) Lymphocytes % (Manual) Monocytes % (Manual) Platelet Estimate RBC Morphology Sodium Potassium Chloride Carbon Dioxide Anion Gap BUN Creatinine Estimated Creat Clear Estimated GFR Est GFR ( Amer) Glucose POC Glucose 260 H 231 H 282 H Lactate Calcium Magnesium Total Bilirubin AST ALT Alkaline Phosphatase Total Protein Albumin Globulin Albumin/Globulin Ratio Urine Color Urine Appearance Urine pH Ur Specific [place] Urine Protein Urine Glucose (UA) Urine Ketones Urine Blood Urin
--- NOTE | 2021-03-06 14:44 | SW/DCPLANNER ---
SENT ORDERS FOR A RESUMPTION OF HOME HEALTH SERVICES TO [facility]... PATIENT IS ALREADY ESTABLISHED WITH [facility] AND WILL CONTINUE ONCE PATIENT DISCHARGES HOME WITH ... NO OTHER SERVICES NEEDED AT THIS TIME..
== END 2021-03-06 15:45 | disposition home health service (06) ==
PROVIDERS: Admitting Provider Internal Medicine Adolescent Medicine; PCP Internal Medicine Adolescent Medicine; Visit Provider Internal Medicine Adolescent Medicine
DX: R33.9 Retention of urine, unspecified (principal); M86.9 Osteomyelitis, unspecified; I25.10 Atherosclerotic heart disease of native coronary artery without angina pectoris; R29.6 Repeated falls; Z79.4 Long term (current) use of insulin; Z68.25 Body mass index [BMI] 25.0-25.9, adult; Z89.412 Acquired absence of left great toe; E11.621 Type 2 diabetes mellitus with foot ulcer; L97.529 Non-pressure chronic ulcer of other part of left foot with unspecified severity; E11.65 Type 2 diabetes mellitus with hyperglycemia; I10 Essential (primary) hypertension; E83.42 Hypomagnesemia
CPT/HCPCS: G0379; 73630; 74019; 80053; 81001; 82962; 83605; 83735; 85007; 85025; 87040; 87581; 87633; 87798; 93005; 97162; 97165; 97535; G0378

== ENCOUNTER 2021-03-07 00:03 | Emergency (ER) | payer MEDICARE, SELFPAY ==
[2021-03-07 00:54] VITALS: BP 111/53; PULSE 80; RESP 18; TEMP 37.4; O2SAT 93; BMI 25.1
[2021-03-07 01:28] VITALS: BP 111/53; PULSE 84; RESP 18; TEMP 36.7; O2SAT 98
--- NOTE | 2021-03-07 01:32 | PC.NURSE ---
pt catheter was reportedly obstructed and he was experiencing pain in the lower abd area. vss. pt reports being dc'd earlier this date with cath. and to follow up with pcp and urology. irrigation of catheter was attempted and unsuccessful. catheter was then removed and replaced per gino herron utilizing a 16 fr milian and sterile technique. pt tolerated well and had immediate urinary output of 1L of urine. pain immediately relieved. pt will continue to follow instructions given to him with dc this previous date. vss remain wnl. pt left er with new catheter.
== END 2021-03-07 01:31 | disposition home or self-care (01) ==
LOC: ER 00:26
PROVIDERS: Emergency Provider Emergency Medicine; PCP Internal Medicine Adolescent Medicine
DX: T83.098A Other mechanical complication of other urinary catheter, initial encounter (principal)
CPT/HCPCS: 99281

== ENCOUNTER 2021-03-07 13:59 | Observation (INO) | payer MEDICARE, SELFPAY ==
[2021-03-07 14:20] VITALS: BP 121/63; PULSE 79; RESP 18; TEMP 36.7; O2SAT 97; BMI 25.2
--- NOTE | 2021-03-07 15:32 | CT_ITS ---
PROCEDURE INFORMATION: Exam: CT Abdomen And Pelvis Without And With Contrast Exam date and time: 03/07/2021 3:32 PM Age: 80 years old Clinical indication: Abdominal pain; Generalized; Patient HX: Abd pain, bloody stool; Additional info: Abd pain , gi bleed TECHNIQUE: Imaging protocol: Computed tomography of the abdomen and pelvis without and with contrast. Radiation optimization: All CT scans at this facility use at least one of these dose optimization techniques: automated exposure control; mA and/or kV adjustment per patient size (includes targeted exams where dose is matched to clinical indication); or iterative reconstruction. Contrast material: ISO 370; Contrast volume: 75 ml; Contrast route: INTRAVENOUS (IV); COMPARISON: CT ABDOMEN PELVIS W CON 02/03/2021 8:00 PM FINDINGS: Lungs: Interstitial scarring and subsegmental atelectasis in the visualized lower lungs. No focal consolidation. Liver: Borderline hepatomegaly 20 cm length. There is a 1 cm hypoenhancing/hypoattenuating lesion in the lateral segment of left lobe of liver, enhanced HU density 16, series 5, image 34, consistent with benign cystic lesion. No suspicious solid mass. Gallbladder and bile ducts: Cholelithiasis, tiny calcific stones or sludge suggested in the gallbladder fundus. Gallbladder is not well distended. No definite CT findings of acute cholecystitis. No biliary dilatation. Pancreas: Fatty atrophic changes in the pancreas. Pancreatic calcification appears most likely to be vascular calcification , less likely parenchymal calcification. No ductal dilatation or mass. Spleen: Mild splenomegaly approximate 14 cm. Coronal series 604, image 48. Adrenal glands: Left adrenal nodule of approximate 1.1 cm with nonenhanced HU density of 12, enhanced HU density of 49, indeterminate. Normal right adrenal. Kidneys and ureters: Mild bilateral perinephric soft tissue stranding. A left posterior perirenal cystic collection versus exophytic cortical cyst again noted which appears slightly smaller compared with the prior exam, 4.8 cm transversely on the previous study and 4.2 cm on today's exam, benign HU density of 8 on the enhanced study. No suspicious renal mass. No hydronephrosis, hydroureter, or obstructing calcified stones. Right renal vascular calcifications. Stomach and bowel: The rectum is distended with fecal material up to 7.7 x 8.9 cm diameter, with slightly hyperenhancing rectal wall, worrisome for proctitis and rectal fecal impaction. No definite pneumatosis. No colon dilatation. The stomach is normal. There is no evidence of intestinal perforation or obstruction. No active GI bleeding/definite contrast extravasation is seen during the exam, note that the study was not performed with CTA technique. There is approximately 7 cm length segment of left lower quadrant colon at the junction of sigmoid and descending colon which is persistently contracted versus thickened on both pre and postcontrast images, probably just a colon contraction rather than a true stricture as there is no significant dilatation proximal to this, less likely would be focal colitis or infiltrative neoplasm. On the prior exam from 02/03/2021, the entire descending and sigmoid colon are empty and contracted with a similar appearance. Fluid-filled small bowel loops, no dilated loops or mucosal thickening. Appendix: No findings of appendicitis. Intraperitoneal space: There is no free intraperitoneal air.There is no significant free intraperitoneal fluid. Vasculature: Multiple coronary artery calcifications. There is no aortic aneurysm. The abdominal-pelvic vasculature demonstrates scattered mild to
[2021-03-07 15:42] LABS: Chloride 100 mmol/L (98-107); Sodium 136 mmol/L (136-145)
[2021-03-07 15:43] LABS: Potassium 4.2 mmoL/L (3.5-5.1)
[2021-03-07 15:45] LABS: Alanine Aminotransferase 18 U/L (12-78); Alkaline Phosphatase 120 U/L (38-126); Amylase 46 U/L (30-110); Anion Gap 11.2 mEq/L (5-15); Aspartate Amino Transferase 19 U/L (17-59); Bilirubin,Total 1.1 mg/dl (0.2-1.3); Blood Urea Nitrogen 20 mg/dl (9-20); Carbon Dioxide 29 mmol/L (22.0-30.0); Creatinine Clearance Estimated 71 mL/min (50-200); Estimated Glomerular Filt Rate 109 ml/min (>60); GFR (African American) 132 ML/MIN (>60)
[2021-03-07 15:46] LABS: Albumin Level 4.2 g/dl (3.5-5.0); Albumin/Globulin Ratio 1.4 (1.1-1.8); Calcium 9.4 mg/dl (8.4-10.2); Globulin 2.9 g/dL (1.3-3.2); Glucose 312 mg/dl (74-100); Magnesium 1.9 mg/dl (1.6-2.3); Total Protein,Serum 7.1 g/dl (6.3-8.2)
[2021-03-07 15:48] LABS: Basophils # 0.1 K/mm3 (0-0.2); Basophils % 0.4 % (0.1-2.0); Eosinophils # 0.2 K/mm3 (0.0-0.4); Eosinophils % 1.1 % (0.1-12.0); Hematocrit 41.2 % (42.0-52.0); Lymphocytes % 6.3 % (10-50); Mean Corpuscular HGB Conc 31.6 g/dL (31.8-35.4); Mean Corpuscular Hemoglobin 29.1 pg (27.0-31.2); Mean Corpuscular Volume 91.9 fl (80-94); Mean Platelet Volume 7.7 fl (7.4-10.4); Monocytes # 1.1 K/mm3 (0.1-1.0); Monocytes % 7.3 % (1.7-9.3); Neutrophils # 13.2 K/mm3 (1.8-7.8); Platelet Count 204 K/mm3 (142-424); Red Blood Count 4.48 M/mm3 (4.60-6.20); White Blood Count 15.5 K/mm3 (4.8-10.8)
[2021-03-07 15:51] LABS: MANUAL DIFFERENTIAL MANUAL DIFFERENTIAL (MANUAL DIFF)
--- NOTE | 2021-03-07 15:54 | PC.WOUNDNOTE ---
STITCHES FROM PREVIOUS AMPUTATION MEASURES 3 1/4 INCHES IN LENGTH
--- NOTE | 2021-03-07 15:56 | PC.WOUNDNOTE ---
SKIN TEAR FROM FALL ON 02/03/2021 SEROUSANGIOUS DRAINAGE NOTED MEASURES 2.5IN X 2.5IN
--- NOTE | 2021-03-07 15:57 | PC.WOUNDNOTE ---
SKIN TEAR FROM FALL ON 03/06/2021 BLOODY DRAINAGE NOTED. MEASURES 2 10/08 IN X 1 10/08 IN
--- NOTE | 2021-03-07 15:58 | PC.WOUNDNOTE ---
SKIN TEAR FROM PREVIOUS FALL 03/06/2021 NO DRAINAGE.
[2021-03-07 16:00] VITALS: BP 130/64; PULSE 84; RESP 18; TEMP 36.6; O2SAT 95
[2021-03-07 16:04] LABS: Lipase 35 U/L (23-300)
[2021-03-07 16:32] LABS: Lactic Acid 1.2 mmol/L (0.7-2.1)
[2021-03-07 16:56] LABS: Lymphocytes % 9 % (10-50); Monocytes % 8 % (2-9); Neutrophils % 83 % (42-76); Platelet Estimate Normal; RBC Morphology Normal; Total Cells Counted 100
[2021-03-07 17:21] LABS: POC Glucose,Bedside 262 (70-110)
[2021-03-07 17:48] LABS: C-Reactive Protein 46.5 mg/L (0-4)
--- NOTE | 2021-03-07 18:15 | HMH.HP ---
*Admission Date: 03/07/21 *Chief complaint: Abdominal pain/blood in stool *History of present illness: 80-year-old white male with complex recent medical history. Diagnosed 3 weeks ago with left great toe osteomyelitis, underwent surgical resection and this was relatively uncomplicated, went home to stay with his daughter and at the daughter's home in [place] and initially did well with home health, but had an episode early this week of hypoglycemia of uncertain etiology that resulted in mental status changes and combative behaviors, treated and released from the emergency department here but came to my office the next day with significant dehydration, urinary retention, bladder swelling clinically and was admitted to hospital Thursday of this week and Loera catheter was placed with good resolution of his discomfort. Discharged home the next day, but unfortunately has had increasing pain in his lower abdomen and has had an episode of Loera catheter blockage from blood clots after the catheter was dislodged on transfer out of the hospital earlier this week, this mandated another ER visit where catheter was flushed and working well and patient was again sent home but this morning after initially feeling well had significant lower bladder pain after he moved around and then had an episode of bloody stools that reportedly were gelatinous and significantly voluminous. We elected to admit the patient back to observation to make sure blood counts were stable, watch for lower GI bleeding, repeat labs and look at his Loera management. Currently the patient feels better but is extremely nervous about the recurrence of lower abdominal pain, falling and is very frustrated about his inability to get back on his feet. [facility] History I have reviewed the patient's past medical history: Yes Medical History: Reports:: Atherosclerotic Heart Disease, Diabetes Mellitus Type 1, Diabetes Mellitus Type 2, Hyperlipidemia, Hypertension, Renal Insufficiency Denies:: Cancer, MRSA *Have you ever received a pneumonia vaccine?: Yes *Have you received a flu vaccine this season?: Yes Other Medical History: Reports: Thyroid Disease Other Surgeries: Yes: Hernia Repair Amputation: Yes (left great toe) - *Social History Smoking Status: Former smoker Alcohol Intake: never Substance Use Type: denies use *Occupational Status:: retired Housing: house Household Members: spouse *Travel in the last 8 weeks: None Family Hx:: Unable to obtain Review of Systems - Review of Systems Review of systems:: pertinent systems reviewed and negative unless documented below Meds Home Medications Medication Instructions Recorded Confirmed Type Atorvastatin Calcium [Lipitor 80mg 80 mg PO HS 02/03/21 03/07/21 History Tablet*] Escitalopram Oxalate 10 mg PO DAILY 02/03/21 03/07/21 History propylthiouraciL [Propylthiouracil] 50 mg PO TID 02/03/21 03/07/21 History Insulin Detemir [Levemir 20 units SQ HS 30 Days #1 pen 03/06/21 03/07/21 Rx 100units/mL 3mL flexpen] Magnesium Oxide [Magnesium] 400 mg PO BID 03/07/21 03/07/21 History Tamsulosin HCl 0.4 mg PO HS 03/07/21 03/07/21 History lisinopriL [Lisinopril] 10 mg PO DAILY 03/07/21 03/07/21 History Allergies Allergy/AdvReac Type Severity Reaction Status Date / Time No Known Allergies Allergy Verified 02/18/21 09:31 Exam Vital signs and Labs for Last 24 Hours: Temp Pulse Resp BP Pulse Ox 98 F 84 18 130/64 95 03/07/21 16:00 03/07/21 16:00 03/07/21 16:00 03/07/21 16:00 03/07/21 16:00 Laboratory Results - last 24 hr 03/07/21 14:35: WBC 15.5 H, RBC 4.48 L, Hgb 13.0 L, Hct 41.2 L, MCV 91.9, MCH 29.1, MCHC 31.6 L, RDW 14.0, Plt Count 204, MPV 7.7, Neut % (Auto) 85.0 H, Lymph % (Auto) 6.3 L, [place] % (Auto) 7.3, Eos % (Auto) 1.1, Baso % (Auto) 0.4, Neut # (Auto) 13.2 H, Lymph # (Auto) 1.0, [place] # (Auto) 1.1 H, Eos # (Auto) 0.2, Baso # (Auto) 0.1, Total Counted 100, Neutrophils % (Manual) 83 H, Lymphocytes % (Manual)
[2021-03-07 18:43] LABS: Erythrocyte Sedimentation Rate 27 mm/hr (0-20)
[2021-03-07 20:00] VITALS: BP 152/70; PULSE 74; RESP 16; TEMP 37.2; O2SAT 95
[2021-03-07 22:33] LABS: POC Glucose,Bedside 266 (70-110)
[2021-03-08 04:00] VITALS: BP 121/47; PULSE 74; RESP 16; TEMP 36.9; O2SAT 93
[2021-03-08 05:00] VITALS: BMI 24.5
--- NOTE | 2021-03-08 06:16 | PC.NURSE ---
Patient shows no s/s of acute distress, call light within reach, bed at lowest level for safety; will continue to monitor.
[2021-03-08 07:23] LABS: Basophils # 0.1 K/mm3 (0-0.2); Basophils % 0.6 % (0.1-2.0); Eosinophils # 0.4 K/mm3 (0.0-0.4); Hemoglobin 11.8 g/dL (14.1-18.0); Lymphocytes # 1.2 K/mm3 (0.7-4.5); Mean Corpuscular HGB Conc 34.7 g/dL (31.8-35.4); Mean Corpuscular Hemoglobin 30.3 pg (27.0-31.2); Mean Corpuscular Volume 87.4 fl (80-94); Mean Platelet Volume 7.7 fl (7.4-10.4); Monocytes # 0.8 K/mm3 (0.1-1.0); Monocytes % 7.8 % (1.7-9.3); Neutrophils # 7.7 K/mm3 (1.8-7.8); Neutrophils % 75.6 % (37.0-80.0); Platelet Count 177 K/mm3 (142-424); Red Blood Count 3.89 M/mm3 (4.60-6.20); Red Cell Distribution Width 14.3 % (11.5-17.5); White Blood Count 10.2 K/mm3 (4.8-10.8)
[2021-03-08 07:28] LABS: Chloride 103 mmol/L (98-107); Sodium 136 mmol/L (136-145)
[2021-03-08 07:29] LABS: Potassium 3.5 mmoL/L (3.5-5.1)
[2021-03-08 07:31] LABS: Alanine Aminotransferase 13 U/L (12-78); Alkaline Phosphatase 95 U/L (38-126); Anion Gap 10.5 mEq/L (5-15); Aspartate Amino Transferase 14 U/L (17-59); Blood Urea Nitrogen 12 mg/dl (9-20); Carbon Dioxide 26 mmol/L (22.0-30.0); Creatinine Clearance Estimated 71 mL/min (50-200); Estimated Glomerular Filt Rate 161 ml/min (>60); GFR (African American) 195 ML/MIN (>60)
[2021-03-08 07:32] LABS: Albumin Level 3.3 g/dl (3.5-5.0); Albumin/Globulin Ratio 1.3 (1.1-1.8); Calcium 8.5 mg/dl (8.4-10.2); Globulin 2.6 g/dL (1.3-3.2); Glucose 208 mg/dl (74-100); Total Protein,Serum 5.9 g/dl (6.3-8.2)
[2021-03-08 07:42] LABS: POC Glucose,Bedside 226 (70-110)
[2021-03-08 08:00] VITALS: BP 119/56; PULSE 72; RESP 17; TEMP 36.5; O2SAT 95
--- NOTE | 2021-03-08 09:16 | HMH.OTEV ---
OT Inpatient Evaluation Rehab OT IP Evaluation Start: 03/07/21 18:21 Freq: ONCE Status: Complete Protocol: Document 03/08/21 09:00 KARENELIO (Rec: 03/08/21 09:16 FLACO [id number]) Rehab OT IP Assessment Subjective History *Admission Date: 03/07/21 *Chief complaint: Abdominal pain/blood in stool *History of present illness: 80-year-old white male with complex recent medical history . Diagnosed 3 weeks ago with left great toe osteomyelitis, underwent surgical resection and this was relatively uncomplicated, went home to stay with his daughter and at the daughter's home in [place] and initially did well with home health, but had an episode early this week of hypoglycemia of uncertain etiology that resulted in mental status changes and combative behaviors, treated and released from the emergency department here but came to my office the next day with significant dehydration, urinary retention, bladder swelling clinically and was admitted to hospital Thursday of this week and Loera catheter was placed with good resolution of his discomfort. Discharged home the next day, but unfortunately has had increasing pain in his lower abdomen and has had an episode of Loera catheter blockage from blood clots after the catheter was dislodged on transfer out of the hospital earlier this week, this mandated another ER visit where catheter was flushed and working well and patient was again sent home but this morning after initially feeling well had significant lower bladder pain after he
--- NOTE | 2021-03-08 09:31 | P.CONPHA_ITS ---
[facility] Pharmacy VTE Monitoring - Patient Demographics Admission date: 03/08/21 Report Date: 03/08/21 Time: 09:31 Allergies/Adverse Reactions: Patient Allergies No Known Allergies Allergy (Verified 02/18/21 09:31) Height: 1.83 m Weight: 82.214 kg Patient Problems: Current Active Problems Diabetes mellitus (Chronic) Urinary retention (Acute) Constipation (Acute) Indwelling urethral catheter present (Acute) Blood in stool (Acute) Status post foot surgery (Acute) - VTE Risk Labs: VTE Related Lab Results Hgb 11.8 g/dL (14.1-18.0) L 03/08/21 06:46 Hct 34.0 % (42.0-52.0) L 03/08/21 06:46 Plt Count 177 K/mm3 (142-424) 03/08/21 06:46 BUN 12 mg/dl (9-20) D 03/08/21 06:46 Creatinine 0.50 mg/dl (0.66-1.25) L D 03/08/21 06:46 Estimated Creat Clear 71 mL/min (50-200) 03/08/21 06:46 VTE Score: 8 VTE Risk Level: Moderate Risk - Prophylaxis Types of VTE Prophylaxis: TEDS Knee High Location of Applied Device: Bilateral Lower Extremeties (NICOLE HOSE ORDERED)
--- NOTE | 2021-03-08 09:36 | HMH.ORTHOCON ---
*Admission Date: 03/08/21 <Susan Hernandez - 03/08/21 10:08> *Reason for consult:: Follow up on toe wound; L hallux amputation <Susan Hernandez - 03/08/21 10:08> *History of present illness: 80-year-old white male with complex recent medical history. Diagnosed 3 weeks ago with left great toe osteomyelitis, underwent surgical resection and this was relatively uncomplicated, went home to stay with his daughter and at the daughter's home in [place] and initially did well with home health, but had an episode early this week of hypoglycemia of uncertain etiology that resulted in mental status changes and combative behaviors, treated and released from the emergency department here but came to my office the next day with significant dehydration, urinary retention, bladder swelling clinically and was admitted to hospital Thursday of this week and Loera catheter was placed with good resolution of his discomfort. Discharged home the next day, but unfortunately has had increasing pain in his lower abdomen and has had an episode of Loera catheter blockage from blood clots after the catheter was dislodged on transfer out of the hospital earlier this week, this mandated another ER visit where catheter was flushed and working well and patient was again sent home but this morning after initially feeling well had significant lower bladder pain after he moved around and then had an episode of bloody stools that reportedly were gelatinous and significantly voluminous. We elected to admit the patient back to observation to make sure blood counts were stable, watch for lower GI bleeding, repeat labs and look at his Loera management. Currently the patient feels better but is extremely nervous about the recurrence of lower abdominal pain, falling and is very frustrated about his inability to get back on his feet. [facility] History I have reviewed the patient's past medical history: Yes Medical History: Reports:: Atherosclerotic Heart Disease, Diabetes Mellitus Type 1, Diabetes Mellitus Type 2, Hyperlipidemia, Hypertension, Renal Insufficiency Denies:: Cancer, MRSA *Have you ever received a pneumonia vaccine?: Yes *Have you received a flu vaccine this season?: Yes Other Medical History: Reports: Thyroid Disease Other Surgeries: Yes: Hernia Repair Amputation: Yes (left great toe) - *Social History Smoking Status: Former smoker Alcohol Intake: never Substance Use Type: denies use *Occupational Status:: retired Housing: house Household Members: spouse *Travel in the last 8 weeks: None Family Hx:: Unable to obtain *Podiatry counsulted to follow up on his Left hallux amputation site for osteomyelitis and dressing change. Surgery was done on 02/04/21 and was last seen in office on 02/18/21 for his PostOp visit. Sutures are intact and the site did not have any erythema and edema today. No drainage noted when site compressed. We will leave the sutures in place for another couple of weeks, the incision is not fully healed but does not look like any worsening infection. The x-rays that was obtained on 03/07/2021 did not show any new osteomyelitis. Last cultures from foot: Proteus Mirabillis. Susceptible to Cipro, levo or Bactrim. Resistant to tetracycline. I do not think he needs a PICC or IV antibiotics at this time but orals of 1 of those for 10 to 14 days is recommended. Will dress the site with xeroform, betadine soaked 4x4, dry, kerlix and pasha wrap. <Susan Hernandez 03/08/21 10:08> [facility] History I have reviewed the patient's past medical history: Yes <Susan Hernandez 03/08/21 10:08> Medical History: Reports:: Atherosclerotic Heart Disease, Diabetes Mellitus Type 1, Diabetes Mellitus Type 2, Hyperlipidemia, Hypertension, Renal Insufficiency Denies:: Cancer, MRSA <Susan Hernandez 03/08/21 10:08> *Have you ever received a pneumonia vaccine?: Yes <Susan Hernandez 03/08/21 10:08> *Have you received a flu vaccine this season?: Yes <Susan Hernandez 03/08/21 10:
--- NOTE | 2021-03-08 10:37 | HMH.PTEV ---
Physical Therapy Evaluation Rehab PT IP Evaluation Start: 03/07/21 18:21 Freq: ONCE Status: Active Protocol: Document 03/08/21 09:30 PHOJOSE MARTIN (Rec: 03/08/21 10:37 PHORNE [id number]) Subjective/History History History 80 yowm adm to [facility] with abdominal pain. He reports he lives with family, has no steps to enter the home, and is independent with ambulation using his RW at baseline. Subjective Subjective He reports no c/o at this time and agrees to get OOB. Rehab PT IP Eval Objective Appearance Patient Behavior Appropriate Patient Orientation Person,Place,Time Difficulty following instructions none Speech Pattern Clear Ambulation Patient Able to Ambulate Yes Ambulation Observation IP General Gait Pattern Observation Wide Based Gait Ambulation Distance (feet) 30 Ambulation Assistive Device Rolling Walker Ambulation Ability Supervision/Stand by Balance Ability to Arise Able, uses arms to help Sitting Balance Steady, safe Standing Balance Steady, wide stance Dynamic Sitting Balance Ability Good Dynamic Standing Balance Ability Good Transfers Bed Transfer Ability Supervision/Stand by Chair Transfer Ability Supervision/Stand by Sit to Stand Bed Transfer Ability Supervision/Stand by Sit to Stand Chair Transfer Ability Supervision/Stand by ROM All Extremities PT ROM Status WFL MMT All Extremities PT MMT WFL Rehab PT IP prob,goals,plan Problems Date of Evaluation: 03/08/21 Discharge Plan PT Discharge Plan Pt is currently at baseline for all mobility and is appropriate to return home once medically stable. G -code Required No Eval Complexity Eval Charge Codes 65866 - Moderate Complexity PHYSICIAN CERTIFICATION: I certify the specified therapy services for Aurelio Patton Jr are required, authorized, and reviewed every 30 days.
[2021-03-08 11:21] LABS: POC Glucose,Bedside 231 (70-110)
--- NOTE | 2021-03-08 11:43 | PC.NURSE ---
Pt alert and oriented x 4. No c/o's thus far. Denies pain or discomfort. Did speak with daughter this am. Called Leon Chaparro in care management to make her aware family plans to visit as well. CB in reach. Meds given per mar.
--- NOTE | 2021-03-08 13:23 | SW/DCPLANNER ---
SPOKE WITH DR RICKS AND HE REQUESTED I CALL MR NICHOLS'S STEP DAUGHTER AND OFFER DISCHARGE PLANNING EITHER PLACEMENT AT PRIVATE PAY IN A NURSING FACILITY SINCE HE HAS A HUMANA/MCR AND HE DIDN'T NEED ANY THERAPY SO THEY WOULD NOT AUTH HIM TO GO AND BE PAID.. LEON STATED HE WOULD BE GOING HOME WITH HER AND WISHES TO HAVE HIS HOME HEALTH RESUMED I DID CALL AND SERVICES ARE GOING TO START ON THURSDAY... HE IS GOING TO NEED ANOTHER FRACTURE SHOE THAT FITS HIM BETTER SINCE THE ONE HE HAS IS TOO LONG... LEON ALSO REQUESTED AN APPT WITH DR GARY TO FOLLOW UP EARLY NEXT WEEK.. I SHARED THIS WITH HIS NURSE.... HE IS READY TO GO HOME IN THE AM PENDING NO SET BACKPACKS....
--- NOTE | 2021-03-08 14:07 | HMH.ACPN2 ---
Internal Medicine - PN: Subj *Date: 03/08/21 *Time: 17:19 Interval history: Mr. Patton had an uneventful evening. Tolerating Pyridium well with improvement in bladder spasm. Making good urine. No blood clots or joe blood in his urine. Oliver color likely secondary to medication therapy. Ambulated well with physical therapy and Occupational Therapy. Tolerating diet. Remains afebrile. Awaiting podiatry consult. Patient still quite anxious, having fecal incontinence this morning. Exam Vital signs and Labs for Last 24 Hours: Temp Pulse Resp BP Pulse Ox 97.7 F 72 17 119/56 L 95 03/08/21 08:00 03/08/21 08:00 03/08/21 08:00 03/08/21 08:00 03/08/21 08:00 Laboratory Results - last 24 hr 03/07/21 14:35: WBC 15.5 H, RBC 4.48 L, Hgb 13.0 L, Hct 41.2 L, MCV 91.9, MCH 29.1, MCHC 31.6 L, RDW 14.0, Plt Count 204, MPV 7.7, Neut % (Auto) 85.0 H, Lymph % (Auto) 6.3 L, [place] % (Auto) 7.3, Eos % (Auto) 1.1, Baso % (Auto) 0.4, Neut # (Auto) 13.2 H, Lymph # (Auto) 1.0, [place] # (Auto) 1.1 H, Eos # (Auto) 0.2, Baso # (Auto) 0.1, Total Counted 100, Neutrophils % (Manual) 83 H, Lymphocytes % (Manual) 9 L, Monocytes % (Manual) 8, Platelet Estimate Normal, RBC Morphology Normal 03/07/21 14:35: Sodium 136, Potassium 4.2, Chloride 100, Carbon Dioxide 29, Anion Gap 11.2, BUN 20, Creatinine 0.70, Estimated Creat Clear 71, Estimated GFR 109, Est GFR ( Amer) 132, Glucose 312 H, Calcium 9.4, Magnesium 1.9 D, Total Bilirubin 1.1, AST 19, ALT 18, Alkaline Phosphatase 120, Total Protein 7.1, Albumin 4.2, Globulin 2.9, Albumin/Globulin Ratio 1.4, Amylase 46 03/07/21 14:35: Lipase 35 03/07/21 14:35: ESR 27 H 03/07/21 14:35: C-Reactive Protein 46.5 H 03/07/21 15:45: Lactate 1.2 03/07/21 16:47: POC Glucose 262 H 03/07/21 22:14: POC Glucose 266 H 03/08/21 05:56: POC Glucose 226 H 03/08/21 06:46: WBC 10.2 D, RBC 3.89 L, Hgb 11.8 L, Hct 34.0 L, MCV 87.4, MCH 30.3, MCHC 34.7, RDW 14.3, Plt Count 177, MPV 7.7, Neut % (Auto) 75.6, Lymph % (Auto) 12.0, [place] % (Auto) 7.8, Eos % (Auto) 4.0, Baso % (Auto) 0.6, Neut # (Auto) 7.7, Lymph # (Auto) 1.2, [place] # (Auto) 0.8, Eos # (Auto) 0.4, Baso # (Auto) 0.1 03/08/21 06:46: Sodium 136, Potassium 3.5, Chloride 103, Carbon Dioxide 26, Anion Gap 10.5, BUN 12 D, Creatinine 0.50 L D, Estimated Creat Clear 71, Estimated GFR 161, Est GFR ( Amer) 195 D, Glucose 208 H D, Calcium 8.5, Total Bilirubin 1.0, AST 14 L D, ALT 13 D, Alkaline Phosphatase 95, Total Protein 5.9 L, Albumin 3.3 L D, Globulin 2.6, Albumin/Globulin Ratio 1.3 03/08/21 11:10: POC Glucose 231 H I & O for Last 24 hours: Intake & Output 03/05/21 03/06/21 03/07/21 03/08/21 23:59 23:59 23:59 23:59 Intake Total 996 / 996 Output Total 1000 / 1000 Balance -4 / -4 Weight 81.902 kg 82.214 kg Microbiology Reports for the Last 24 Hours: Microbiology 03/07/21 15:07 Nasopharyngeal Coronavirus COVID-19 PCR - Final Narrative: - Constitutional no acute distress, thin, chronically ill appearing - *Routine HEENT Exam Head: Present: normocephalic Eye: Present: EOMI, PERRL ENT: Present: mucous membranes moist - *Routine Neck Exam Present: supple. Absent: lymphadenopathy - *Routine Respiratory Exam Present: CTA bilaterally - *Routine Cardiovascular Exam Present: RRR - *Routine Abdominal Exam Present: soft, normoactive bowel sounds, guarding. Absent: tenderness - *Routine Extremities Exam Absent: cyanosis, clubbing, edema Comments: Left foot in bandage from podiatry. Absent great toe from recent surgery - *Routine Skin Exam Present: warm. Absent: rash Comments: Bandaged significant skin tear in the right upper arm from a fall at home - *Routine Neurological Exam Present: alert, oriented X3, moving all extremities, hard of hearing. Assessment and Plan (1) Blood in stool Status: Acute Category: Medical Code(s): K92.1 - Melena (2) Constipation Status: Acute Category: Medical Code(s): K59
[2021-03-08 15:09] VITALS: BP 144/65; PULSE 70; RESP 17; TEMP 36.5; O2SAT 95
[2021-03-08 17:02] LABS: POC Glucose,Bedside 268 (70-110)
[2021-03-08 20:00] VITALS: BP 121/70; PULSE 71; RESP 16; TEMP 36.9; O2SAT 95
[2021-03-08 21:26] LABS: POC Glucose,Bedside 262 (70-110)
--- NOTE | 2021-03-09 03:22 | PC.NURSE ---
Patient has rested most of this shift with no c/o pain. VS WNL, shows no s/s of acute distress noted. Call light within reach, bed at lowest level for safety; will continue to monitor.
[2021-03-09 03:53] VITALS: BP 110/72; PULSE 77; RESP 16; TEMP 36.8; O2SAT 94
[2021-03-09 05:00] VITALS: BMI 24.5
[2021-03-09 05:26] LABS: POC Glucose,Bedside 224 (70-110)
[2021-03-09 07:57] VITALS: BP 122/59; PULSE 76; RESP 16; TEMP 36.8; O2SAT 93
--- NOTE | 2021-03-09 08:05 | HMH.DCSUM ---
General - General Admission date:: 03/07/21 Discharge date: 03/09/21 HPI HPI: 80-year-old white male with complex recent medical history. Diagnosed 3 weeks ago with left great toe osteomyelitis, underwent surgical resection and this was relatively uncomplicated, went home to stay with his daughter and at the daughter's home in [place] and initially did well with home health, but had an episode early this week of hypoglycemia of uncertain etiology that resulted in mental status changes and combative behaviors, treated and released from the emergency department here but came to my office the next day with significant dehydration, urinary retention, bladder swelling clinically and was admitted to hospital Thursday of this week and Loera catheter was placed with good resolution of his discomfort. Discharged home the next day, but unfortunately has had increasing pain in his lower abdomen and has had an episode of Loera catheter blockage from blood clots after the catheter was dislodged on transfer out of the hospital earlier this week, this mandated another ER visit where catheter was flushed and working well and patient was again sent home but this morning after initially feeling well had significant lower bladder pain after he moved around and then had an episode of bloody stools that reportedly were gelatinous and significantly voluminous. We elected to admit the patient back to observation to make sure blood counts were stable, watch for lower GI bleeding, repeat labs and look at his Loera management. Currently the patient feels better but is extremely nervous about the recurrence of lower abdominal pain, falling and is very frustrated about his inability to get back on his feet. Hospital Course Hospital Course: Patient was admitted, urinary catheter was continued. Podiatry consult was obtained, patient was subjected to labs, CT scan of abdomen which revealed significant colitis. He improved very nicely with IV fluids, reduction of his insulin regimen and continue tamsulosin. Antibiotics were switched to Levaquin. PT and OT thought he was at his baseline. This morning the patient feels much better. I reviewed extensively the CT scan report and his condition with his stepdaughter. Plan will be to discharge home today, he will continue with his Loera catheter in place. I gave his family a regimen of MiraLAX and mineral oil to clean out his constipation that is visible on CAT scan. I will follow him closely in the office on Thursday. Levaquin for ongoing treatment of his foot wound. Pyridium for urinary issues. Objective Vital signs: Temp Pulse Resp BP Pulse Ox 98.3 F 76 16 122/59 L 93 L 03/09/21 07:57 03/09/21 07:57 03/09/21 07:57 03/09/21 07:57 03/09/21 07:57 no acute distress, thin, chronically ill appearing - *Routine HEENT Exam Head: Present: normocephalic Eye: Present: EOMI, PERRL ENT: Present: mucous membranes moist - *Routine Neck Exam Present: supple - *Routine Respiratory Exam Present: CTA bilaterally - *Routine Cardiovascular Exam Present: RRR - *Routine Abdominal Exam Present: soft, normoactive bowel sounds. Absent: tenderness - *Routine Exam Comments: Loera cath in place - *Routine Extremities Exam Absent: cyanosis, clubbing, edema Comments: Left foot in surgical dressing. - *Routine Skin Exam Present: warm. Absent: rash Comments: Dry, skin tear on right arm is dressed. - *Routine Neurological Exam Present: alert, oriented X3 - Detailed Eye Exam Eyelids: Bilateral normal inspection Results Labs on day of discharge: Labs from last 24 hours 03/09/21 03/08/21 03/08/21 05:05 20:29 16:43 POC Glucose 224 H 262 H 268 H 03/08/21 11:10 POC Glucose 231 H DS: Diagnosis - Discharge Diagnosis (1) Blood in stool Status: Resolved (2) Constipation Status: Acute (3) Indwelling urethral catheter present Status: Acut
--- NOTE | 2021-03-09 11:11 | PC.NURSE ---
D/C instructions given to family and ptvipiney in place and instructions for care given. Meds called in to [facility] Ta. Verbed understanding.
== END 2021-03-09 10:50 | disposition home health service (06) ==
PROVIDERS: Admitting Provider Internal Medicine Adolescent Medicine; PCP Internal Medicine Adolescent Medicine; Visit Provider Internal Medicine Adolescent Medicine
DX: K59.00 Constipation, unspecified (principal); E11.9 Type 2 diabetes mellitus without complications; Z79.4 Long term (current) use of insulin; M86.9 Osteomyelitis, unspecified; I10 Essential (primary) hypertension; E78.5 Hyperlipidemia, unspecified; I25.10 Atherosclerotic heart disease of native coronary artery without angina pectoris; Z89.412 Acquired absence of left great toe; R33.9 Retention of urine, unspecified; Z79.899 Other long term (current) drug therapy
CPT/HCPCS: 36415; 74178; 80053; 82150; 82962; 83605; 83690; 83735; 85007; 85025; 85651; 86140; 87040; 97110; 97162; 97165; 99281; G0378; Q9967; U0003

== ENCOUNTER → 2021-04-09 12:53 | Outpatient (CLI) | payer MEDICARE, SELFPAY ==
[2021-04-09 13:25] LABS: Basophils # 0.1 K/mm3 (0-0.2); Basophils % 0.8 % (0.1-2.0); Eosinophils # 0.3 K/mm3 (0.0-0.4); Eosinophils % 2.5 % (0.1-12.0); Hematocrit 41.7 % (42.0-52.0); Hemoglobin 14.3 g/dL (14.1-18.0); Lymphocytes # 1.6 K/mm3 (0.7-4.5); Lymphocytes % 14.5 % (10-50); Mean Corpuscular HGB Conc 34.4 g/dL (31.8-35.4); Mean Corpuscular Volume 87.4 fl (80-94); Mean Platelet Volume 7.3 fl (7.4-10.4); Monocytes # 0.7 K/mm3 (0.1-1.0); Monocytes % 6.8 % (1.7-9.3); Neutrophils # 8.2 K/mm3 (1.8-7.8); Neutrophils % 75.4 % (37.0-80.0); Platelet Count 231 K/mm3 (142-424); Red Blood Count 4.78 M/mm3 (4.60-6.20); Red Cell Distribution Width 14.5 % (11.5-17.5); White Blood Count 10.9 K/mm3 (4.8-10.8)
[2021-04-09 14:09] LABS: Erythrocyte Sedimentation Rate 88 mm/hr (0-20)
[2021-04-09 14:38] LABS: Hemoglobin A1C 8.8 % (4.0-6.0)
[2021-04-09 15:39] LABS: Alanine Aminotransferase 73 U/L (12-78); Albumin Level 4.1 g/dl (3.5-5.0); Albumin/Globulin Ratio 1.6 (1.1-1.8); Alkaline Phosphatase 161 U/L (38-126); Anion Gap 13.8 mEq/L (5-15); Aspartate Amino Transferase 26 U/L (17-59); Bilirubin,Total 0.6 mg/dl (0.2-1.3); Blood Urea Nitrogen 19 mg/dl (9-20); Calcium 9.5 mg/dl (8.4-10.2); Carbon Dioxide 30 mmol/L (22.0-30.0); Chloride 101 mmol/L (98-107); Estimated Glomerular Filt Rate 109 ml/min (>60); GFR (African American) 132 ML/MIN (>60); Globulin 2.6 g/dL (1.3-3.2); Glucose 314 mg/dl (74-100); Potassium 4.8 mmoL/L (3.5-5.1); Sodium 140 mmol/L (136-145); Total Protein,Serum 6.7 g/dl (6.3-8.2)
[2021-04-09 15:45] LABS: C-Reactive Protein 5.2 mg/L (0-4)
== END ==
PROVIDERS: Visit Provider Podiatrist
DX: M86.9 Osteomyelitis, unspecified (principal); E11.9 Type 2 diabetes mellitus without complications; Z98.890 Other specified postprocedural states; Z79.4 Long term (current) use of insulin
CPT/HCPCS: 36415; 80053; 83036; 85025; 85651; 86140

== ENCOUNTER → 2021-04-29 12:15 | Outpatient (CLI) | payer MEDICARE, SELFPAY ==
[2021-04-29 13:02] LABS: Basophils # 0.1 K/mm3 (0-0.2); Eosinophils # 0.3 K/mm3 (0.0-0.4); Eosinophils % 3.2 % (0.1-12.0); Hematocrit 41.4 % (42.0-52.0); Lymphocytes # 1.6 K/mm3 (0.7-4.5); Lymphocytes % 14.5 % (10-50); Mean Corpuscular HGB Conc 33.9 g/dL (31.8-35.4); Mean Corpuscular Hemoglobin 28.9 pg (27.0-31.2); Mean Corpuscular Volume 85.4 fl (80-94); Mean Platelet Volume 6.8 fl (7.4-10.4); Monocytes # 0.9 K/mm3 (0.1-1.0); Monocytes % 7.9 % (1.7-9.3); Neutrophils # 7.9 K/mm3 (1.8-7.8); Neutrophils % 73.4 % (37.0-80.0); Platelet Count 243 K/mm3 (142-424); Red Blood Count 4.85 M/mm3 (4.60-6.20); White Blood Count 10.8 K/mm3 (4.8-10.8)
[2021-04-29 13:37] LABS: Alanine Aminotransferase 92 U/L (12-78); Albumin Level 3.9 g/dl (3.5-5.0); Albumin/Globulin Ratio 1.5 (1.1-1.8); Alkaline Phosphatase 153 U/L (38-126); Anion Gap 10.6 mEq/L (5-15); Aspartate Amino Transferase 31 U/L (17-59); Bilirubin,Total 0.6 mg/dl (0.2-1.3); Blood Urea Nitrogen 21 mg/dl (9-20); Calcium 9.5 mg/dl (8.4-10.2); Carbon Dioxide 34 mmol/L (22.0-30.0); Chloride 100 mmol/L (98-107); Estimated Glomerular Filt Rate 130 ml/min (>60); GFR (African American) 158 ML/MIN (>60); Globulin 2.6 g/dL (1.3-3.2); Glucose 255 mg/dl (74-100); Potassium 4.6 mmoL/L (3.5-5.1); Sodium 140 mmol/L (136-145); Total Protein,Serum 6.5 g/dl (6.3-8.2)
[2021-04-29 13:44] LABS: C-Reactive Protein 3.5 mg/L (0-4)
[2021-04-29 14:31] LABS: Erythrocyte Sedimentation Rate 26 mm/hr (0-20)
== END ==
PROVIDERS: Visit Provider Nurse Practitioner
DX: Z98.890 Other specified postprocedural states (principal); M86.9 Osteomyelitis, unspecified
CPT/HCPCS: 36415; 80053; 85025; 85651; 86140

== ENCOUNTER → 2021-05-21 11:49 | Outpatient (CLI) | payer MEDICARE, SELFPAY ==
--- NOTE | 2021-05-21 11:58 | XR_ITS ---
PROCEDURE: XR FOOT WT BEARING LT 3V CLINICAL INDICATION: post left hallux amputation COMPARISON: CR XR FOOT LT MIN 3V from 02/04/2021 CR XR FOOT WT BEARING LT 3V from 03/06/2021 FINDINGS: S/p 1st MTP amputation. No bony destructive process. There is an old 5th metatarsal fracture with good alignment. Pes planus. Mild osteoarthritic changes at the ankle and tarsal metatarsal junction. Other findings:None. IMPRESSION: Status post 1st MTP amputation. No acute finding Dictated by: Lele Silvestre MD 05/21/2021 13:21 Lele Silvestre MD in [place] 05/21/2021 13:21
[2021-05-21 13:35] LABS: Basophils # 0.1 K/mm3 (0-0.2); Basophils % 0.9 % (0.1-2.0); Eosinophils # 0.3 K/mm3 (0.0-0.4); Eosinophils % 2.8 % (0.1-12.0); Hemoglobin 14.3 g/dL (14.1-18.0); Lymphocytes # 1.9 K/mm3 (0.7-4.5); Lymphocytes % 16.5 % (10-50); Mean Corpuscular HGB Conc 34.8 g/dL (31.8-35.4); Mean Corpuscular Hemoglobin 29.3 pg (27.0-31.2); Mean Corpuscular Volume 84.3 fl (80-94); Mean Platelet Volume 7.4 fl (7.4-10.4); Monocytes # 0.9 K/mm3 (0.1-1.0); Monocytes % 7.5 % (1.7-9.3); Neutrophils # 8.2 K/mm3 (1.8-7.8); Neutrophils % 72.3 % (37.0-80.0); Platelet Count 215 K/mm3 (142-424); Red Blood Count 4.87 M/mm3 (4.60-6.20); Red Cell Distribution Width 14.7 % (11.5-17.5); White Blood Count 11.4 K/mm3 (4.8-10.8)
[2021-05-21 13:36] LABS: Chloride 102 mmol/L (98-107); Potassium 4.4 mmoL/L (3.5-5.1); Sodium 141 mmol/L (136-145)
[2021-05-21 13:38] LABS: Blood Urea Nitrogen 18 mg/dl (9-20); Estimated Glomerular Filt Rate 109 ml/min (>60); GFR (African American) 132 ML/MIN (>60)
[2021-05-21 13:39] LABS: Alanine Aminotransferase 67 U/L (12-78); Albumin Level 3.9 g/dl (3.5-5.0); Albumin/Globulin Ratio 1.5 (1.1-1.8); Alkaline Phosphatase 119 U/L (38-126); Anion Gap 11.4 mEq/L (5-15); Aspartate Amino Transferase 29 U/L (17-59); Bilirubin,Total 0.6 mg/dl (0.2-1.3); Calcium 9.3 mg/dl (8.4-10.2); Carbon Dioxide 32 mmol/L (22.0-30.0); Globulin 2.6 g/dL (1.3-3.2); Glucose 178 mg/dl (74-100); Total Protein,Serum 6.5 g/dl (6.3-8.2)
[2021-05-21 13:45] LABS: C-Reactive Protein 0.5 mg/L (0-4)
[2021-05-21 14:17] LABS: Erythrocyte Sedimentation Rate 27 mm/hr (0-20)
== END ==
PROVIDERS: PCP Internal Medicine Adolescent Medicine; Visit Provider Podiatrist
DX: Z98.890 Other specified postprocedural states (principal); M86.9 Osteomyelitis, unspecified
CPT/HCPCS: 36415; 73630; 80053; 85025; 85651; 86140

== ENCOUNTER → 2021-07-30 18:06 | Outpatient (CLI) | payer MEDICARE, SELFPAY ==
[2021-07-30 19:13] LABS: Hemoglobin A1C 10.7 % (4.0-6.0)
[2021-07-30 19:35] LABS: Anion Gap 10.5 mEq/L (5-15); Blood Urea Nitrogen 19 mg/dl (9-20); Calcium 9.5 mg/dl (8.4-10.2); Carbon Dioxide 34 mmol/L (22.0-30.0); Chloride 102 mmol/L (98-107); Estimated Glomerular Filt Rate 109 ml/min (>60); GFR (African American) 132 ML/MIN (>60); Glucose 116 mg/dl (74-100); Potassium 4.5 mmoL/L (3.5-5.1); Sodium 142 mmol/L (136-145)
== END ==
PROVIDERS: Visit Provider Internal Medicine Adolescent Medicine
DX: E11.9 Type 2 diabetes mellitus without complications (principal); Z79.4 Long term (current) use of insulin
CPT/HCPCS: 80048; 83036

== ENCOUNTER → 2022-02-11 13:22 | Outpatient (CLI) | payer MEDICARE, SELFPAY ==
--- NOTE | 2022-02-11 13:29 | MR_ITS ---
FINAL REPORT CLINICAL HISTORY: FALLING FREQUENTLY FINDINGS: Multiplanar MR imaging of the brain was performed without contrast. There is mild age-appropriate atrophy. There are scattered foci of increased T2 signal in the cerebral white matter that have a nonspecific appearance but likely represent mild chronic ischemic/gliotic changes. There is no evidence of intracranial hemorrhage. No abnormal ventricular dilatation is identified. No abnormal extra-axial fluid collection is seen. No abnormality is seen on the diffusion weighted images. The posterior fossa and brainstem are unremarkable. Normal major vessel vascular flow voids are seen. There is a 15 mm focus of abnormal signal in the right parietal skull. There is also a 5 mm focus in the left parietal skull. These have a nonspecific appearance but neoplasm is not excluded. 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 IMPRESSION: Abnormal signal in the right and left parietal skull which have a nonspecific appearance but neoplasm is not excluded. Consider follow-up MRI. Age-appropriate atrophy and mild chronic ischemic/gliotic changes. Reviewed, Interpreted and Dictated by Rocky Mancini III, MD Transcribed by Cynthia Ocasio Authenticated by Rocky Mancini III, MD on 02/11/2022 04:26:20 PM [facility]
== END ==
PROVIDERS: PCP Internal Medicine Adolescent Medicine; Visit Provider Internal Medicine Adolescent Medicine
DX: R00.1 Bradycardia, unspecified (principal); R29.6 Repeated falls
CPT/HCPCS: 70551

== ENCOUNTER → 2022-03-05 13:12 | Outpatient (CLI) | payer MEDICARE, SELFPAY ==
--- NOTE | 2022-03-05 13:21 | MR_ITS ---
FINAL REPORT CLINICAL HISTORY: FALLING, abn prev mri COMPARISON: 02/11/2022 FINDINGS: Multiplanar MR imaging of the brain was performed without and with contrast. There is mild age-appropriate atrophy. Scattered foci of increased T2 signal are seen in the cerebral white matter that have a nonspecific appearance but likely represent mild chronic ischemic/gliotic changes. There is no evidence of intracranial hemorrhage or mass. No abnormal ventricular dilatation is identified. There is no evidence of shift of the midline structures. No abnormal extra-axial fluid collection is seen. No area of abnormal restricted diffusion is identified. The posterior fossa and brainstem have an unremarkable appearance. Again noted are foci of abnormal signal involving the bilateral parietal skull. Focus on the right measures 17 mm in the focus on the left measures 7 mm show contrast enhancement. Appearance is nonspecific but could represent a hemangioma or possible neoplasm. A 30 mm right frontal scalp lipoma is stable. IMPRESSION: Mild atrophy and chronic ischemic/gliotic changes. Stable areas of abnormal signal in the biparietal skull. Stable right frontal scalp lipoma. Reviewed, Interpreted and Dictated by Rocky Mancini III, MD Transcribed by Latrice Martin Authenticated and [facility]
[2022-03-05 13:48] LABS: Blood Urea Nitrogen 20 mg/dl (9-20); Estimated Glomerular Filt Rate 93 ml/min (>60); GFR (African American) 113 ML/MIN (>60)
== END ==
LOC: RAD 13:13
PROVIDERS: PCP Internal Medicine Adolescent Medicine; Visit Provider Internal Medicine Adolescent Medicine
DX: R29.6 Repeated falls (principal); R93.0 Abnormal findings on diagnostic imaging of skull and head, not elsewhere classified
CPT/HCPCS: 36415; 70553; 82565; 84520; A9576

== ENCOUNTER → 2022-07-23 15:46 | Outpatient (CLI) | payer MEDICARE, SELFPAY ==
--- NOTE | 2022-07-23 16:10 | XR_ITS ---
PROCEDURE INFORMATION: Exam: XR Left Foot Complete; Alignment Exam date and time: 07/23/2022 4:17 PM Age: 82 years old Clinical indication: Pain; Toes; Left; Additional info: Ulcer of left 2nd toe TECHNIQUE: Imaging protocol: Radiologic exam of the Left foot. Views: 3 or more views. COMPARISON: CR XR FOOT WT BEARING LT 3V 05/21/2021 12:03 PM FINDINGS: Bones/joints: There has been prior amputation of the 1st toe. There is destructive change at the tip of the 2nd distal phalanx. Soft tissues: There is hyperflexion of the 2nd toe potentially reflecting extensor tendon dysfunction. Soft tissues of the 2nd toe are edematous but no soft tissue gas or radiopaque foreign body is evident. IMPRESSION: Bony destructive changes noted at the tip of the 2nd distal phalanx. In addition, the DIP is held in flexion suggesting dysfunction of the extensor tendon.
[2022-07-23 16:48] LABS: Basophils # 0.1 K/mm3 (0-0.2); Eosinophils # 0.3 K/mm3 (0.0-0.4); Eosinophils % 2.7 % (0.1-12.0); Hematocrit 41.9 % (42.0-52.0); Lymphocytes # 1.4 K/mm3 (0.7-4.5); Lymphocytes % 12.5 % (10-50); Mean Corpuscular HGB Conc 33.5 g/dL (31.8-35.4); Mean Corpuscular Hemoglobin 30.1 pg (27.0-31.2); Mean Corpuscular Volume 89.7 fl (80-94); Mean Platelet Volume 7.7 fl (7.4-10.4); Monocytes # 0.8 K/mm3 (0.1-1.0); Monocytes % 6.7 % (1.7-9.3); Neutrophils # 8.6 K/mm3 (1.8-7.8); Neutrophils % 77.1 % (37.0-80.0); Platelet Count 299 K/mm3 (142-424); Red Blood Count 4.67 M/mm3 (4.60-6.20); Red Cell Distribution Width 14.2 % (11.5-17.5); White Blood Count 11.2 K/mm3 (4.8-10.8)
[2022-07-23 16:54] LABS: Chloride 100 mmol/L (98-107); Potassium 4.6 mmoL/L (3.5-5.1); Sodium 140 mmol/L (136-145)
[2022-07-23 16:56] LABS: Alanine Aminotransferase 23 U/L (12-78); Aspartate Amino Transferase 19 U/L (17-59); Blood Urea Nitrogen 22 mg/dl (9-20); Estimated Glomerular Filt Rate 93 ml/min (>60); GFR (African American) 113 ML/MIN (>60)
[2022-07-23 16:57] LABS: Albumin Level 3.7 g/dl (3.5-5.0); Albumin/Globulin Ratio 1.5 (1.1-1.8); Alkaline Phosphatase 161 U/L (38-126); Anion Gap 12.6 mEq/L (5-15); Bilirubin,Total 0.5 mg/dl (0.2-1.3); Carbon Dioxide 32 mmol/L (22.0-30.0); Globulin 2.5 g/dL (1.3-3.2); Glucose 132 mg/dl (74-100); Total Protein,Serum 6.2 g/dl (6.3-8.2)
[2022-07-23 17:02] LABS: C-Reactive Protein 7.5 mg/L (0-4)
[2022-07-23 17:59] LABS: Erythrocyte Sedimentation Rate 36 mm/hr (0-20)
== END ==
LOC: LAB 15:47 → LAB.DROPOF 17:25
PROVIDERS: PCP Internal Medicine Adolescent Medicine; Visit Provider Nurse Practitioner Family
DX: L03.032 Cellulitis of left toe (principal); L97.529 Non-pressure chronic ulcer of other part of left foot with unspecified severity; B96.4 Proteus (mirabilis) (morganii) as the cause of diseases classified elsewhere
CPT/HCPCS: 36415; 73630; 80053; 85025; 85651; 86140; 87070; 87186; 87205

== ENCOUNTER 2022-07-30 16:37 | Inpatient (IN) | payer MEDICARE, SELFPAY ==
--- NOTE | 2022-07-30 12:52 | CT_ITS ---
FINAL REPORT TECHNIQUE: Thin section axial CT images with coronal and sagittal reformats were performed. This study was performed with techniques to keep radiation doses as low as reasonably achievable (ALARA). Individualized dose reduction techniques using automated exposure control or adjustment of mA and/or kV according to the patient''s size were employed. CLINICAL HISTORY: infection FINDINGS: There are postoperative changes from amputation of the great toe at the 1st metatarsophalangeal joint. There are erosions and fragmentation of the 2nd distal phalanx. The appearance is most worrisome for osteomyelitis. Finding is best seen on sagittal image number 22. No other bony erosions are identified. There are multiple cysts in the midfoot. There are mild degenerative changes. A plantar calcaneal spur is identified. There is forefoot soft tissue edema or cellulitis. IMPRESSION: Findings worrisome for osteomyelitis as detailed above. Reviewed, Interpreted and Dictated by Rocky Mancini III, MD Transcribed by Cynthia Ocasio Authenticated and [facility]
--- NOTE | 2022-07-30 13:29 | US_ITS ---
FINAL REPORT CLINICAL HISTORY: lt great toe ulcer/gangrene with osteomyelitis,ex smoker,htn,hld,dm,claudication FINDINGS: ANKLE-BRACHIAL PRESSURE INDICES Pressure indices are as follows: RIGHT LOWER EXTREMITY: Ankle-brachial pressure index: 1.0 Comments: Normal LEFT LOWER EXTREMITY: Ankle-brachial pressure index: 0.9 Comments: Borderline CONCLUSION: No evidence of significant obstructive peripheral vascular disease of the lower extremities Reviewed, Interpreted and Dictated by Rocky Mancini III, MD Transcribed by Kiki Rooney Authenticated and [facility]
--- NOTE | 2022-07-30 16:58 | PC.NURSE ---
patient arrived to floor by wheelchair from admissions (Dr. Guy's office)
[2022-07-30 17:06] VITALS: BP 134/57; PULSE 77; RESP 18; TEMP 36.5; O2SAT 97; BMI 25.4
--- NOTE | 2022-07-30 17:26 | EXP.ORTH.CON ---
History of Present Illness *Admission Date: 07/30/22 *Reason for visit:: Left DFU *History of present illness: Patient is an 82-year-old male who was seen in the podiatry clinic 07/30/2022 to review ABIs and a CT scan. Imaging showed osteomyelitis. PCP Dr. Grey was contacted and patient was admitted for surgery for amputation and IV antibiotics. [facility] Social History Smoking Status: Former smoker alcohol intake: never substance use type: denies use current occupational status: retired Travel in the last 8 weeks: None household members: spouse housing: house current occupational exposures/hazards: No caffeine: Yes Review of Systems Review of Systems Review of systems:: pertinent systems reviewed and negative unless documented below Constitutional Constitutional: Reports system reviewed and no additional complaints, except as documented and Reports lethargy Eyes Eyes: Reports system reviewed and no additional complaints, except as documented ENT Ears, Nose, Mouth, and Throat: Reports system reviewed and no additional complaints, except as documented and Reports abnormal hearing *Cardiovascular Cardiovascular: Reports system reviewed and no additional complaints, except as documented *Respiratory Respiratory: Reports system reviewed and no additional complaints, except as documented *Gastrointestinal Gastrointestinal: Reports system reviewed and no additional complaints, except as documented *Genitourinary Genitourinary: Reports system reviewed and no additional complaints, except as documented *Musculoskeletal Musculoskeletal: Reports system reviewed and no additional complaints, except as documented and Reports joint swelling (Left toes) Integumentary/Breasts Skin/Breast: Reports system reviewed and no additional complaints, except as documented, Reports alopecia, Reports change in hair, Reports nail changes, Reports skin ulcer, Reports skin swelling (Left foot) and Reports wounds (Left toes) *Neurologic Neurologic: Reports system reviewed and no additional complaints, except as documented and Reports abnormal hearing Psychiatric Psychiatric: Reports system reviewed and no additional complaints, except as documented Endocrine Endocrine: Reports system reviewed and no additional complaints, except as documented Hematologic/Lymphatic Hematologic/Lymphatic: Reports system reviewed and no additional complaints, except as documented Allergic/Immunologic Allergic/Immunologic: Reports system reviewed and no additional complaints, except as documented Meds Home Medications and Allergies Home Medications Medication Instructions Recorded Confirmed Type atorvastatin 80 mg tablet 80 mg PO HS Hyperlipidemia 02/03/21 07/30/22 History propylthiouracil 50 mg tablet 50 mg PO TID hyperthyrodism 02/03/21 07/30/22 History tamsulosin 0.4 mg capsule 0.4 mg PO HS prostate 03/07/21 07/30/22 History escitalopram oxalate 10 mg tablet 10 mg PO DAILY Depression 03/08/21 07/30/22 History insulin NPH-regular 70-30 U-100 12 unit SQ BID Diabetes 12/30/21 07/31/22 History insulin 100 unit/mL subcutaneous pen (Novolin 70-30 FlexPen U-100 Insulin) levofloxacin 750 mg tablet 750 mg PO DAILY 14 days #14 tabs 07/23/22 07/30/22 Rx insulin aspart U-100 100 unit/mL 90 unit SQ DAILY diabetes 07/31/22 07/31/22 History subcutaneous solution (Novolog U-100 Insulin aspart) New Prescriptions to Start Prescriptions: Allergies Allergy/AdvReac Type Severity Reaction Status Date / Time No Known Allergies Allergy Verified 07/30/22 15:22 Ortho Exam (Inpt) Vital signs and Labs for Last 24 Hours: Temp Pulse Resp BP Pulse Ox 97.7 F 77 18 134/57 L 97 07/30/22 17:06 07/30/22 17:06 07/30/22 17:06 07/30/22 17:06 07/30/22 17:06 I & O for Labs for Last 24 Hours: Intake & Output 07/28/22 07/29/22 07/30/22 07/31/22 11:59 11:59 11:59 11:59 Weight 187
[2022-07-30 17:31] VITALS: PULSE 87; O2SAT 96
--- NOTE | 2022-07-30 17:54 | EXP.HP ---
History of Present Illness *Admission Date: 07/30/22 *Reason for visit:: Osteomyelitis of left toes *History of present illness: 82-year-old male with diabetes, history of small vessel disease in his feet and a history of osteomyelitis of the left great toe with amputation several months ago. He has been doing well but a couple weeks ago he noticed increasing redness in the second toe and is been following podiatry. He was back in the clinic today for follow-up of his CT scan which unfortunately showed for osteomyelitis of the second toe of the left foot. Given his significant risk for sepsis, impaired circulation and neurologic issues in his feet and high risk of progression he was admitted to hospital for IV antibiotics and further evaluation for podiatry regarding surgical care. [facility] Social History Smoking Status: Former smoker alcohol intake: never substance use type: denies use current occupational status: retired Travel in the last 8 weeks: None household members: spouse housing: house current occupational exposures/hazards: No caffeine: Yes Review of Systems Review of Systems Review of systems:: pertinent systems reviewed and negative unless documented below Meds Home Medications and Allergies Home Medications Medication Instructions Recorded Confirmed Type atorvastatin 80 mg tablet 80 mg PO HS Cholesterol 02/03/21 07/30/22 History propylthiouracil 50 mg tablet 50 mg PO TID THYROID 02/03/21 07/30/22 History lisinopril 10 mg tablet 10 mg PO DAILY Hypertension 03/07/21 07/30/22 History magnesium oxide 400 mg PO BID Supplement 03/07/21 07/30/22 History tamsulosin 0.4 mg capsule 0.4 mg PO HS PROSTATE 03/07/21 07/30/22 History escitalopram oxalate 10 mg tablet 10 mg PO DAILY Depression 03/08/21 07/30/22 History insulin NPH-regular 70-30 U-100 12 unit SQ BID 12/30/21 07/30/22 History insulin 100 unit/mL subcutaneous pen (Novolin 70-30 FlexPen U-100 Insulin) insulin glargine 100 60 unit SQ DAILY 12/30/21 07/30/22 History unit-lixisenatide 33 mcg/mL subcutaneous pen (Soliqua 100/33) levofloxacin 750 mg tablet 750 mg PO DAILY 14 days #14 tabs 07/23/22 07/30/22 Rx New Prescriptions to Start Prescriptions: Allergies Allergy/AdvReac Type Severity Reaction Status Date / Time No Known Allergies Allergy Verified 07/30/22 15:22 Exam Data for Last 24 hours Vital signs and Labs for Last 24 Hours: Temp Pulse Resp BP Pulse Ox 97.7 F 77 18 134/57 L 97 07/30/22 17:06 07/30/22 17:06 07/30/22 17:06 07/30/22 17:06 07/30/22 17:06 I & O for Last 24 hours: Intake & Output 07/28/22 07/29/22 07/30/22 07/31/22 11:59 11:59 11:59 11:59 Weight 187 lb 3 oz Constitutional Constitutional: no acute distress *Routine HEENT Exam Head: Present normocephalic Eye: Present EOMI and PERRL ENT: Present mucous membranes moist *Routine Neck Exam Neck: Present supple; Absent lymphadenopathy *Routine Respiratory Exam Respiratory: Present CTA bilaterally *Routine Cardiovascular Exam Cardiovascular: Present RRR and murmur *Routine Abdominal Exam Abdominal: Present soft and normoactive bowel sounds; Absent tenderness *Routine Rectal Exam Rectal:: deferred *Routine Genitalia Exam Genitalia:: deferred *Routine Extremities Exam Extremities: Absent cyanosis, clubbing or edema Comments: Surgically absent left great toe. The second and third toes of the left foot have a hammertoe deformity, are reddened, no pain because he has significant sensory loss. There is diminished capillary refill. He has poor pulses in both feet. *Routine Skin Exam Skin: Present warm; Absent rash *Routine Neurological Exam Neurological: Present alert and oriented X3 Comments: Sensory loss in both feet up to the midshin. 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
[2022-07-30 18:39] LABS: Basophils # 0.1 K/mm3 (0-0.2); Eosinophils # 0.4 K/mm3 (0.0-0.4); Eosinophils % 4.2 % (0.1-12.0); Hematocrit 41.1 % (42.0-52.0); Hemoglobin 13.6 g/dL (14.1-18.0); Lymphocytes # 1.2 K/mm3 (0.7-4.5); Lymphocytes % 13.3 % (10-50); Mean Corpuscular HGB Conc 33.1 g/dL (31.8-35.4); Mean Corpuscular Volume 90.7 fl (80-94); Mean Platelet Volume 7.3 fl (7.4-10.4); Monocytes # 0.9 K/mm3 (0.1-1.0); Neutrophils # 6.4 K/mm3 (1.8-7.8); Neutrophils % 71.6 % (37.0-80.0); Platelet Count 220 K/mm3 (142-424); Red Blood Count 4.53 M/mm3 (4.60-6.20); Red Cell Distribution Width 14.3 % (11.5-17.5)
[2022-07-30 18:59] LABS: Alanine Aminotransferase 27 U/L (12-78); Albumin Level 3.7 g/dl (3.5-5.0); Albumin/Globulin Ratio 1.2 (1.1-1.8); Alkaline Phosphatase 191 U/L (38-126); Anion Gap 13.4 mEq/L (5-15); Aspartate Amino Transferase 27 U/L (17-59); Bilirubin,Total 0.8 mg/dl (0.2-1.3); Blood Urea Nitrogen 23 mg/dl (9-20); Calcium 8.8 mg/dl (8.4-10.2); Carbon Dioxide 32 mmol/L (22.0-30.0); Chloride 97 mmol/L (98-107); Creatinine Clearance Estimated 71 mL/min (50-200); Estimated Glomerular Filt Rate 109 ml/min (>60); GFR (African American) 131 ML/MIN (>60); Glucose 228 mg/dl (74-100); Potassium 4.4 mmoL/L (3.5-5.1); Sodium 138 mmol/L (136-145); Total Protein,Serum 6.7 g/dl (6.3-8.2)
[2022-07-30 19:06] LABS: C-Reactive Protein 14.1 mg/L (0-4)
[2022-07-30 19:08] LABS: Erythrocyte Sedimentation Rate 45 mm/hr (0-20)
[2022-07-30 20:00] VITALS: BP 133/53; PULSE 68; RESP 18; TEMP 36.5; O2SAT 96
[2022-07-30 21:37] LABS: POC Glucose,Bedside 396 (70-110)
[2022-07-30 21:47] LABS: Lactic Acid 1.6 mmol/L (0.7-2.1)
[2022-07-30 22:27] LABS: Coronavirus 19, PCR Not Detected (NotDetected); Influenza A, PCR Not Detected (NotDetected); Influenza B, PCR Not Detected (NotDetected)
[2022-07-31] VITALS: BP 117/54; PULSE 64; RESP 16; TEMP 36.9; O2SAT 95
[2022-07-31 04:00] VITALS: BP 127/59; PULSE 77; RESP 16; TEMP 36.9; O2SAT 91
--- NOTE | 2022-07-31 05:26 | PC.NURSE ---
pt is alert and oriented x4, pt is C[place]WE[place], skin pwd, dressing to left foot CDI, pt rested well through the night, pt refused tylenol for mild pain, VSS, no acute distress noted, no other issues or concerns at this time.
[2022-07-31 05:52] VITALS: BMI 25.2
[2022-07-31 05:54] LABS: POC Glucose,Bedside 166 (70-110)
[2022-07-31 07:11] LABS: Basophils # 0.1 K/mm3 (0-0.2); Basophils % 1.2 % (0.1-2.0); Eosinophils # 0.3 K/mm3 (0.0-0.4); Eosinophils % 3.9 % (0.1-12.0); Hematocrit 39.5 % (42.0-52.0); Hemoglobin 13.2 g/dL (14.1-18.0); Lymphocytes # 1.2 K/mm3 (0.7-4.5); Lymphocytes % 14.3 % (10-50); Mean Corpuscular HGB Conc 33.5 g/dL (31.8-35.4); Mean Corpuscular Hemoglobin 29.7 pg (27.0-31.2); Mean Corpuscular Volume 88.6 fl (80-94); Mean Platelet Volume 7.4 fl (7.4-10.4); Monocytes # 0.6 K/mm3 (0.1-1.0); Monocytes % 7.5 % (1.7-9.3); Neutrophils # 6.1 K/mm3 (1.8-7.8); Neutrophils % 73.2 % (37.0-80.0); Platelet Count 236 K/mm3 (142-424); Red Blood Count 4.45 M/mm3 (4.60-6.20); Red Cell Distribution Width 14.3 % (11.5-17.5); White Blood Count 8.3 K/mm3 (4.8-10.8)
[2022-07-31 07:12] LABS: Chloride 103 mmol/L (98-107); Sodium 140 mmol/L (136-145)
[2022-07-31 07:13] LABS: Potassium 4.1 mmoL/L (3.5-5.1)
[2022-07-31 07:15] LABS: Blood Urea Nitrogen 18 mg/dl (9-20); Creatinine Clearance Estimated 70 mL/min (50-200); Estimated Glomerular Filt Rate 109 ml/min (>60); GFR (African American) 131 ML/MIN (>60)
[2022-07-31 07:16] LABS: Anion Gap 11.1 mEq/L (5-15); Calcium 8.7 mg/dl (8.4-10.2); Carbon Dioxide 30 mmol/L (22.0-30.0); Glucose 176 mg/dl (74-100)
--- NOTE | 2022-07-31 07:35 | HMH.PHAINT1 ---
Pharmacy Intervention Comments: Home medication reconciliation completed using outpatient pharmacy fill history and interview with patient,
[2022-07-31 08:00] VITALS: BP 126/58; PULSE 74; RESP 16; TEMP 37; O2SAT 91
--- NOTE | 2022-07-31 08:12 | EXP.ORTH.PN ---
Subjective *Date: 07/31/22 *Time: 09:02 Interval history: Patient resting comfortably at the bedside. Denies any new issues since yesterday. Ortho Exam (Inpt) Vital signs and Labs for Last 24 Hours: Temp Pulse Resp BP Pulse Ox 98.4 F 77 16 127/59 L 91 L 07/31/22 04:00 07/31/22 04:00 07/31/22 04:00 07/31/22 04:00 07/31/22 04:00 Laboratory Results - last 24 hr 07/30/22 18:25: WBC 9.0, RBC 4.53 L, Hgb 13.6 L, Hct 41.1 L, MCV 90.7, MCH 30.0, MCHC 33.1, RDW 14.3, Plt Count 220, MPV 7.3 L, Neut % (Auto) 71.6, Lymph % (Auto) 13.3, [place] % (Auto) 10.0 H, Eos % (Auto) 4.2, Baso % (Auto) 1.0, Neut # (Auto) 6.4, Lymph # (Auto) 1.2, [place] # (Auto) 0.9, Eos # (Auto) 0.4, Baso # (Auto) 0.1, ESR 45 H 07/30/22 18:25: Sodium 138, Potassium 4.4, Chloride 97 L, Carbon Dioxide 32 H, Anion Gap 13.4, BUN 23 H, Creatinine 0.70, Estimated Creat Clear 71, Estimated GFR 109, Est GFR ( Amer) 131, Glucose 228 H, Calcium 8.8, Total Bilirubin 0.8, AST 27, ALT 27, Alkaline Phosphatase 191 H, C-Reactive Protein 14.1 H, Total Protein 6.7, Albumin 3.7, Globulin 3.0, Albumin/Globulin Ratio 1.2 07/30/22 20:20: Lactate 1.6 07/30/22 20:20: SARS-CoV-2 (PCR) Not detected, Influenza A Untype (PCR) Not detected, Influenza Type B (PCR) Not detected 07/30/22 21:10: POC Glucose 396 H* 07/31/22 05:45: POC Glucose 166 H 07/31/22 06:45: WBC 8.3, RBC 4.45 L, Hgb 13.2 L, Hct 39.5 L, MCV 88.6, MCH 29.7, MCHC 33.5, RDW 14.3, Plt Count 236, MPV 7.4, Neut % (Auto) 73.2, Lymph % (Auto) 14.3, [place] % (Auto) 7.5, Eos % (Auto) 3.9, Baso % (Auto) 1.2, Neut # (Auto) 6.1, Lymph # (Auto) 1.2, [place] # (Auto) 0.6, Eos # (Auto) 0.3, Baso # (Auto) 0.1 07/31/22 06:45: Sodium 140, Potassium 4.1, Chloride 103, Carbon Dioxide 30, Anion Gap 11.1, BUN 18, Creatinine 0.70, Estimated Creat Clear 70, Estimated GFR 109, Est GFR ( Amer) 131, Glucose 176 H D, Calcium 8.7 I & O for Labs for Last 24 Hours: Intake & Output 07/28/22 07/29/22 07/30/22 07/31/22 11:59 11:59 11:59 11:59 Intake Total 830 / 830 Output Total 0 / 0 Balance 830 / 830 Weight 186 lb 7 oz Constitutional: Present no acute distress Head: Present normocephalic Neck: Present normal inspection Respiratory: Present able to speak in complete sentences GI: Present soft Rectal (male): Present deferred (male): Present deferred Extremities: Present edema (left foot) Skin: Present dry and pallor Comment:: Left second distal phalanx wound with periwound callus and edema. No drainage noted. Wound measures approximately 0.7 x 0.5 x 0.5 cm and probed deep to the bone. New wound noted to the left third toe distally. There is exposed distal phalanx noted. No drainage. Decreased pedal pulses. Ankle: bilateral: normal inspection Comment:: Varicose veins bilateral lower extremity. Feet/Toes: left: amputation (Left hallux amputation), left: swelling (L 2-3rd toes) and left: wound (L 2-3rd toes) and bilateral: hammer toe, bilateral: nail abnormalities and bilateral: onychomycosis Assessment and Plan *Assessment and plan (1) Diabetic foot ulcer: Status: Acute Qualifiers: Diabetes mellitus type: type 2 Diabetic foot ulcer location: toe Laterality: left Non-pressure ulcer stage: with necrosis of bone Qualified Code(s): E11.621 - Type 2 diabetes mellitus with foot ulcer; L97.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cified foot with unspecified severity (2) 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
--- NOTE | 2022-07-31 08:17 | EXP.PHA.CONS ---
Pharmacy Consult Date: 07/31/22 Time: 08:17 Referring provider: DR. RICKS Reason for Consult:: VANCOMYCIN DOSING Allergies Allergy/AdvReac Type Severity Reaction Status Date / Time No Known Allergies Allergy Verified 07/30/22 15:22 Home Medications Medication Instructions Recorded Confirmed Type atorvastatin 80 mg tablet 80 mg PO HS Hyperlipidemia 02/03/21 07/30/22 History propylthiouracil 50 mg tablet 50 mg PO TID hyperthyrodism 02/03/21 07/30/22 History tamsulosin 0.4 mg capsule 0.4 mg PO HS prostate 03/07/21 07/30/22 History escitalopram oxalate 10 mg tablet 10 mg PO DAILY Depression 03/08/21 07/30/22 History insulin NPH-regular 70-30 U-100 12 unit SQ BID Diabetes 12/30/21 07/31/22 History insulin 100 unit/mL subcutaneous pen (Novolin 70-30 FlexPen U-100 Insulin) levofloxacin 750 mg tablet 750 mg PO DAILY 14 days #14 tabs 07/23/22 07/30/22 Rx insulin aspart U-100 100 unit/mL 90 unit SQ DAILY diabetes 07/31/22 07/31/22 History subcutaneous solution (Novolog U-100 Insulin aspart) New Prescriptions to Start Prescriptions: Height: 1.83 m Weight: 84.567 kg Laboratory Results:: Laboratory Results - last 24 hr 07/30/22 18:25: WBC 9.0, RBC 4.53 L, Hgb 13.6 L, Hct 41.1 L, MCV 90.7, MCH 30.0, MCHC 33.1, RDW 14.3, Plt Count 220, MPV 7.3 L, Neut % (Auto) 71.6, Lymph % (Auto) 13.3, [place] % (Auto) 10.0 H, Eos % (Auto) 4.2, Baso % (Auto) 1.0, Neut # (Auto) 6.4, Lymph # (Auto) 1.2, [place] # (Auto) 0.9, Eos # (Auto) 0.4, Baso # (Auto) 0.1, ESR 45 H 07/30/22 18:25: Sodium 138, Potassium 4.4, Chloride 97 L, Carbon Dioxide 32 H, Anion Gap 13.4, BUN 23 H, Creatinine 0.70, Estimated Creat Clear 71, Estimated GFR 109, Est GFR ( Amer) 131, Glucose 228 H, Calcium 8.8, Total Bilirubin 0.8, AST 27, ALT 27, Alkaline Phosphatase 191 H, C-Reactive Protein 14.1 H, Total Protein 6.7, Albumin 3.7, Globulin 3.0, Albumin/Globulin Ratio 1.2 07/30/22 20:20: Lactate 1.6 07/30/22 20:20: SARS-CoV-2 (PCR) Not detected, Influenza A Untype (PCR) Not detected, Influenza Type B (PCR) Not detected 07/30/22 21:10: POC Glucose 396 H* 07/31/22 05:45: POC Glucose 166 H 07/31/22 06:45: WBC 8.3, RBC 4.45 L, Hgb 13.2 L, Hct 39.5 L, MCV 88.6, MCH 29.7, MCHC 33.5, RDW 14.3, Plt Count 236, MPV 7.4, Neut % (Auto) 73.2, Lymph % (Auto) 14.3, [place] % (Auto) 7.5, Eos % (Auto) 3.9, Baso % (Auto) 1.2, Neut # (Auto) 6.1, Lymph # (Auto) 1.2, [place] # (Auto) 0.6, Eos # (Auto) 0.3, Baso # (Auto) 0.1 07/31/22 06:45: Sodium 140, Potassium 4.1, Chloride 103, Carbon Dioxide 30, Anion Gap 11.1, BUN 18, Creatinine 0.70, Estimated Creat Clear 70, Estimated GFR 109, Est GFR ( Amer) 131, Glucose 176 H D, Calcium 8.7 Assessment and Plan Assessment and plan all Dx Assessment and Plan for all problems:: Pharmacokinetic dosing service Age: 82 yo Serum creatinine: 1 mg/dL Height: 72.0 Inches Weight (kg): 85 Assessment: IBW (kg): 77.60 Dosing wt(kg): 85 Estimated Creatinine clearance (ml/min): 64.7 CRCL method: Cockcroft and Gault using ibw(default). Drug selected: Vancomycin Loading dose (mg): 0 Vd (liters): 68.0 (factor used: 0.8 L/kg) Teo (hr-1): 0.058 Half life (hrs): 11.95 Recommended dose: 1750 mg Interval: 18 hrs Infusion time (hrs): 2.0 Predicted peak (mcg/mL): 37.5 Predicted trough (mcg/mL): 14.83 Total body weight is being used for vancomycin dosing. Recommendations: PATIENT RECEIVED VANCOMYCIN 1500 MG X1 DOSE OVERNIGHT. Give Vancomycin 1750 mg q 18 hrs with an expected Cpeak of 37.5 mcg/ml and an expected Ctrough of 14.83 mcg/ml. ----Vanco only - ignore for aminoglycosides----- CLvanco= 3.94 L/hr AUC 0-24 /HONG Data: HONG 0.5 mcg/mL: AUC/HONG: 1184.4 HONG 1.0 mcg/mL: AUC/HONG: 592.2 --------- HONG 1.5 mcg/mL: AUC/HONG: 394.8 HONG 2.0 mcg/mL: AUC/HONG: 296.1
--- NOTE | 2022-07-31 09:00 | ECG_ITS ---
APPROVED REPORT Exam: Resting ECG HR:74 bpm ECG Measurements Heart Rate 74 AXES NM 128 P 60 QRSd 100 QRS 58 QT 392 T 52 QTc 419 Conclusion SINUS RHYTHM NORMAL ECG UNCONFIRMED REPORT Electronically signed by : Subhash Grey MD 07/31/2022 21:06:27
--- NOTE | 2022-07-31 09:37 | EXP.ACUTE.PN ---
Subjective *Date: 07/31/22 *Time: 09:37 Interval history: Patient is pleasant, awake and alert. He denies pains or problems with breathing or chest pain overnight. Nurses reported no problems overnight. Medical Exam Vital signs and Labs for Last 24 Hours: Vital Signs Temp Pulse Resp BP Pulse Ox 07/31/22 08:00 98.6 F 74 16 126/58 L 91 L 07/31/22 04:00 98.4 F 77 16 127/59 L 91 L 07/30/22 20:00 96 07/31/22 00:00 98.5 F 64 16 117/54 L 95 07/30/22 17:31 87 96 07/30/22 20:00 97.7 F 68 18 133/53 L 96 07/30/22 17:06 97.7 F 77 18 134/57 L 97 Intake and Output 07/30/22 07/31/22 07/31/22 19:59 03:59 11:59 Intake Total 480 / 830 350 / 830 Output Total 0 / 0 0 / 0 Balance 480 / 830 350 / 830 0 / 830 Intake: Intake, Oral Amount 480 / 480 Intake, Total IV Amount 350 / 350 Ceftriaxone Sodium 1 gm In 0.9 50 / 50 % Sodium Chloride 50 ml @ 100 mls/hr IV Q24H [facility] Rx#: [id number] Vancomycin/Water For Inj (Peg) 300 / 300 1.5 gm In 300 ml @ 150 mls/hr IV Q18H [facility] Rx#:[id number] Output: Output, Urine Amount 0 / 0 0 / 0 Other: Number of Unmeasured Voids 1 0 Weight 187 lb 3 oz 186 lb 7 oz Patient Weight 07/31/22 11:59 Weight 186 lb 7 oz Laboratory Results - last 24 hr 07/30/22 18:25: WBC 9.0, RBC 4.53 L, Hgb 13.6 L, Hct 41.1 L, MCV 90.7, MCH 30.0, MCHC 33.1, RDW 14.3, Plt Count 220, MPV 7.3 L, Neut % (Auto) 71.6, Lymph % (Auto) 13.3, [place] % (Auto) 10.0 H, Eos % (Auto) 4.2, Baso % (Auto) 1.0, Neut # (Auto) 6.4, Lymph # (Auto) 1.2, [place] # (Auto) 0.9, Eos # (Auto) 0.4, Baso # (Auto) 0.1, ESR 45 H 07/30/22 18:25: Sodium 138, Potassium 4.4, Chloride 97 L, Carbon Dioxide 32 H, Anion Gap 13.4, BUN 23 H, Creatinine 0.70, Estimated Creat Clear 71, Estimated GFR 109, Est GFR ( Amer) 131, Glucose 228 H, Calcium 8.8, Total Bilirubin 0.8, AST 27, ALT 27, Alkaline Phosphatase 191 H, C-Reactive Protein 14.1 H, Total Protein 6.7, Albumin 3.7, Globulin 3.0, Albumin/Globulin Ratio 1.2 07/30/22 20:20: Lactate 1.6 07/30/22 20:20: SARS-CoV-2 (PCR) Not detected, Influenza A Untype (PCR) Not detected, Influenza Type B (PCR) Not detected 07/30/22 21:10: POC Glucose 396 H* 07/31/22 05:45: POC Glucose 166 H 07/31/22 06:45: WBC 8.3, RBC 4.45 L, Hgb 13.2 L, Hct 39.5 L, MCV 88.6, MCH 29.7, MCHC 33.5, RDW 14.3, Plt Count 236, MPV 7.4, Neut % (Auto) 73.2, Lymph % (Auto) 14.3, [place] % (Auto) 7.5, Eos % (Auto) 3.9, Baso % (Auto) 1.2, Neut # (Auto) 6.1, Lymph # (Auto) 1.2, [place] # (Auto) 0.6, Eos # (Auto) 0.3, Baso # (Auto) 0.1 07/31/22 06:45: Sodium 140, Potassium 4.1, Chloride 103, Carbon Dioxide 30, Anion Gap 11.1, BUN 18, Creatinine 0.70, Estimated Creat Clear 70, Estimated GFR 109, Est GFR ( Amer) 131, Glucose 176 H D, Calcium 8.7 I & O for Labs for Last 24 Hours: Intake & Output 07/28/22 07/29/22 07/30/22 07/31/22 11:59 11:59 11:59 11:59 Intake Total 830 / 830 Output Total 0 / 0 Balance 830 / 830 Weight 186 lb 7 oz Comment:: Alert, oriented, heart rate regular with previously noted murmur. Lungs are clear, abdomen soft. Left foot wrapped in bandage from podiatry. 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
--- NOTE | 2022-07-31 10:00 | CT_ITS ---
FINAL REPORT CLINICAL HISTORY: pad FINDINGS: Thin section axial CT images of the abdomen, pelvis and lower extremities were obtained with contrast. Multiplanar reformatted images were also obtained and reviewed. ABDOMEN AND PELVIS: There is moderate vascular calcification. There is no abdominal aortic aneurysm or dissection. The celiac axis and proximal superior mesenteric artery are unremarkable. There is no renal artery stenosis. The inferior mesenteric artery is patent. There is no significant stenosis of the right common iliac artery or external right iliac artery. There is no significant stenosis of the left common iliac artery or external left iliac artery. The internal iliac arteries are patent. RIGHT LOWER EXTREMITY: There is no significant stenosis of the right common femoral artery. There is moderate stenosis of the mid to distal right superficial femoral artery of approximately 60%. The right deep femoral artery is patent. Evaluation of the lower leg vessels is limited due to opacifications of veins. The right popliteal artery is patent. There is three-vessel runoff to the distal lower leg. LEFT LOWER EXTREMITY: There is no significant stenosis of the left common femoral artery. There are multiple mild stenoses of the left superficial femoral artery. The left deep femoral artery is patent. Evaluation of the lower leg vessels is limited due to opacifications of veins. The left popliteal artery is patent. There are multifocal stenoses of the posterior tibial artery. Occlusion of the mid to distal posterior tibial artery cannot be excluded. OTHER FINDINGS: There is atelectasis in the lung bases. A hypervascular focus in the medial left hepatic lobe may represent a hemangioma. Gallstones are noted in the gallbladder. There is a 3.9 cm cyst in the left kidney. The prostate is enlarged. There are inguinal hernias containing fat. There is diffuse bladder wall thickening which is likely inflammatory. IMPRESSION: Significantly limited evaluation of the distal lower legs bilaterally due to opacified veins. Catheter directed angiography may be necessary to evaluate the lower leg arterial structures. Multifocal stenoses of the left posterior tibial artery. Occlusion of the mid to distal left posterior tibial artery cannot be excluded. Moderate stenosis of the mid to distal right SFA, approximately 60%. Multiple mild stenoses of the left SFA. Reviewed, Interpreted and Dictated by Rocky Mancini III, MD Transcribed by Tye Zuluaga Authenticated and [facility]
--- NOTE | 2022-07-31 10:02 | CA_ITS ---
APPROVED REPORT EXAM: Comprehensive 2D, Doppler, and color-flow Echocardiogram Appliance Service Technician: Amanda Trammell RT(R) Ht: 6 ft 0 in Wt: 186lbs BSA: 2.07 BP: 134/57 mmHg Indications: SOA, DM, osteomyelitis lt toe, pre op amputation 2D Dimensions LVOT 1.98 cm (M/F) 1.5-2.5 M-Mode Dimensions RVDd 2.79 cm (0.9-2.6) LA Diam 3.62 cm (1.9-4.0) LVDd 4.19 cm (3.5-5.7) Ao Diam 2.65 cm (2.0-3.7) LVDs 3.26 cm (3.5-5.7) IVSd 0.86 cm (0.6-1.1) PWd 1.07 cm (0.6-1.1) EF (Teich) 45.20% FS 22.20% EDV (Teich) 78.10 mL ESV (Teich) 42.80 mL LV Diastology E Decel Time 250.00 (160-240 msec) E/A Ratio 0.9 MED E' 6.50 (< 7 cm/sec) E'/MED E' Ratio 12.62 (>14) LAT E' 8.10 (<10 cm/sec) E/LAT E' Ratio 10.12 (>14) Mitral Valve MV E Max Lei. 82.00 (40-130 cm/s) MV A Velocity 89.00 (40-130 cm/s) E/A Ratio 0.92 MV Decel. Time 250.00 (160-240 ms) MV PHT 73.00 ms Left Ventricle Left atrium is mildly enlarged, left ventricle is normal size, mild concentric left ventricular hypertrophy, estimated ejection fraction 55% with no regional wall motion abnormality, grade 1 diastolic dysfunction seen without tissue Doppler evidence of raise left atrial pressure. Right Ventricle Right atrium and right ventricle are normal size and contractility. Aortic Valve Aortic valve is thickened and calcified without aortic stenosis or aortic insufficiency. Mitral Valve Mitral valve is grossly normal, there is trace mitral regurgitation Tricuspid Valve Tricuspid valve grossly normal, there is trace tricuspid regurgitation, tricuspid regurgitation jet velocity is inadequate for calculation of the right ventricular systolic pressure. Pulmonic Valve Pulmonic valve is poorly visualized. Great Vessels Aortic root is normal size. Inferior vena cava is poorly visualized. Pericardium No significant pericardial effusion noted. Conclusion 1. Normal left ventricular size preserved left ventricular systolic function, estimated ejection fraction 55% with no regional wall motion abnormality, grade 1 diastolic dysfunction seen without tissue Doppler evidence of raise left atrial pressure. 2. Thickened and calcified aortic valve without aortic stenosis or aortic insufficiency. 3. Trace mitral and tricuspid regurgitation. 4. No significant pericardial effusion noted. 5. Inferior vena cava is poorly visualized. Electronically signed by : Kush Adler MD 08/01/2022 14:50:48
--- NOTE | 2022-07-31 10:32 | EXP.CARD.CON ---
History of Present Illness History of Present Illness Consult date: 07/31/22 Requesting physician: Subhash Grey Consult reason: pre-op evaluation Chief complaint: L toe wounds History of present illness: This is an 82-year-old white gentleman who presented to the hospital with increasing redness and infection in his second toe of his left foot. The patient has been following with podiatry for this infected left toe but because of the worsening nature of his toe the patient Is to the emergency department. He does have a history of osteomyelitis of his left great toe with amputation approximately 1 to [address] On admission [address] scan of his left lower extremity shows osteomyelitis of the second and third toe of the left foot. Podiatry was consulted and they are wanting to amputate the left toe but they require cardiology consult prior to proceeding with surgical intervention secondary to an abnormal RELL on the left with an RELL of 0.91. The patient does state that he has some pain in his left lower extremity intermittently but this morning he does not. He states that he did have some significant edema in the left foot but this is significantly improved since being in the hospital. He denies any chest pain or pressure. He states that he has some mild shortness of breath on occasion but none this morning. He denies any fever, chills, nausea, vomiting, diarrhea, PND orthopnea. 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 UGIB (upper gastrointestinal bleed) Surgical History (Updated 07/31/22 @ 10:40 by Angelica Luis APRN) Status post foot surgery Social History Smoking Status: Former smoker alcohol intake: never substance use type: denies use current occupational status: retired Travel in the last 8 weeks: None household members: spouse housing: house current occupational exposures/hazards: No caffeine: Yes Review of Systems Review of Systems Review of systems:: pertinent systems reviewed and negative unless documented below Constitutional Constitutional: Reports system reviewed and no additional complaints, except as documented Eyes Eyes: Reports system reviewed and no additional complaints, except as documented ENT Ears, Nose, Mouth, and Throat: Reports system reviewed and no additional complaints, except as documented *Cardiovascular Cardiovascular: Reports system reviewed and no additional complaints, except as documented, Reports dyspnea on exertion and Reports leg edema (Left lower extremity) *Respiratory Respiratory: Reports system reviewed and no additional complaints, except as documented and Reports dyspnea on exertion *Gastrointestinal Gastrointestinal: Reports system reviewed and no additional complaints, except as documented *Genitourinary Genitourinary: Reports system reviewed and no additional complaints, except as documented *Musculoskeletal Musculoskeletal: Reports system reviewed and no additional complaints, except as documented Integumentary/Breasts Skin/Breast: Reports system reviewed and no additional complaints, except as documented, Reports erythema, Reports non-healing lesions and Reports wounds *Neurologic Neurologic: Reports system reviewed and no additional complaints, except as documented Psychiatric Psychiatric: Reports system reviewed and no additional complaints, except as documented Endocrine E
[2022-07-31 12:22] LABS: POC Glucose,Bedside 195 (70-110)
[2022-07-31 15:12] VITALS: BP 114/60; PULSE 63; RESP 18; TEMP 36.6; O2SAT 93
[2022-07-31 16:43] LABS: POC Glucose,Bedside 199 (70-110)
--- NOTE | 2022-07-31 18:38 | PC.NURSE ---
Pt has rested in bed most of the shift. He has ambulated to the bathroom with his cane and assist x1. Glucose was 195 and 199 at checks. He's denied any complaints. Family is at bedside. All questions answered and updated on poc. Bed is locked and in the lowest position, call light is within reach.
[2022-07-31 19:58] VITALS: BP 110/60; PULSE 64; RESP 16; TEMP 36.6; O2SAT 92
[2022-07-31 20:00] VITALS: PULSE 64; O2SAT 92
[2022-07-31 21:14] LABS: POC Glucose,Bedside 310 (70-110)
[2022-08-01] VITALS (26 sets, daily range): BP systolic 116–159; BP diastolic 51–86; PULSE 63–86; RESP 14–20; TEMP 36.3–38; O2SAT 90–100; BMI 25.1
--- NOTE | 2022-08-01 | IR_ITS ---
APPROVED REPORT Patient Location: Inpatient PROCEDURES Catheter placed in the left superficial femoral artery Left superficial femoral artery antegrade angiogram with unilateral runoff to the left foot Intravascular lithotripsy of the left popliteal artery followed by drug-coated balloon angioplasty INDICATION [place] claudication class V-, Peripheral artery disease, Recent lower extremity amputation due to critical limb ischemia Informed consent was obtained prior to the procedure. COMPLICATIONS None Estimated Blood Loss: Less than 10 mls TECHNIQUE 1% lidocaine used anesthetize the right groin the right femoral artery was accessed via Salinger technique and a 5 [place] sheath was placed in the right femoral artery. A rim guide catheter was placed in the abdominal aorta and then used to cannulate the left common iliac artery. An advantage wire was placed into the left superficial femoral artery under fluoroscopic guidance and the catheter was advanced. Unilateral runoff was then performed. Following this therapeutic heparin was administered and the 5 [place] sheath was exchanged for a 6 [place] 45 cm destination sheath. A Choice PT extra-support wire was placed distally into the popliteal artery and a 6.5 x 60 mm lithotripsy balloon was delivered 300 impulses to predilate the stenosis. Following this a 7 mm x 20 mm drug-coated balloon was then deployed at 10 tiburcio for 3 minutes further reducing the stenosis and delivering drug into the soft tissue. Excellent angiograph results were obtained. After achieving excellent angiograph results the apparatus was moved the groin is reprepped closure change sheath was removed hemostasis was achieved using Perclose device patient was transferred to the postop putting in stable condition ANGIOGRAPHIC RESULTS Left superficial femoral artery is widely patent with mild proximal calcifications with no stenosis greater than 20%. There is inline flow to the left popliteal artery where it is heavily calcified with a concentric stenosis of 80% at Power's canal. There is calcified 10 to 20% stenoses below the knee where it then gives rise to an anterior tibialis artery which is subtotally occluded in its proximal segment and then reconstitutes and appears to have flow into the left foot/dorsalis pedis. The PT trunk is patent and gives rise to a proximally occluded posterior tibialis artery and a patent peroneal artery which is peers to provide inline flow into the left foot IMPRESSION Successful intravascular lithotripsy followed by drug-coated balloon angioplasty to the heavily calcified left popliteal artery PLAN 1. Xarelto 2.5 twice daily combined with aspirin 81 mg daily 2. LDL less than 55 to be achieved with high intensity statin 3. Postoperative wound care 4. Evaluation for ischemic heart disease based on the severe degree of peripheral vascular disease 5. Physical therapy Electronically signed by : Cheikh Persaud MD 08/01/2022 13:39:52
[2022-08-01 06:25] LABS: POC Glucose,Bedside 222 (70-110)
--- NOTE | 2022-08-01 06:33 | PC.NURSE ---
no acute distress, vss, pt is a&o x4; dressing intact to left foot, 2+ edema noted to lle, fsbs 222 this am, pts dexcom ro rue was 196, pt was not covered with insulin due to npo status for surgery this am, skin pwd, no other issues or concerns noted, pt awaiting surgery this am.
--- NOTE | 2022-08-01 06:49 | PC.NURSE ---
pt transported to operating room via hospital bed in satisfactory condition accompanied by juan christian, 7 am vancomycin dose currently infusing and sent with patient to OR.
[2022-08-01 07:06] LABS: Chloride 104 mmol/L (98-107); Potassium 3.6 mmoL/L (3.5-5.1); Sodium 139 mmol/L (136-145)
--- NOTE | 2022-08-01 07:06 | P.PN_ITS ---
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 UGIB (upper gastrointestinal bleed) Surgical History Status post foot surgery Social History Smoking Status: Former smoker alcohol intake: never substance use type: denies use current occupational status: retired Travel in the last 8 weeks: None household members: spouse housing: house current occupational exposures/hazards: No caffeine: Yes [facility] Anesthesia Checklist Patient Identification Patient Identification: Arm Band and Verbal (Name & ) Structural Data Admitted From: Inpatient Planned Operative Procedure/s: Toe amputation Consent for Planned Operative Procedure(s) Verified: Yes NPO Status Verified Time NPO: 00:00 Chart Verification Results Verified: BMP Airway Assessment C-Spine Mobility Assessed: Yes TMJ Mobility Assessed: Yes Dentition: Edentulous Neurological Assessment Level of Consciousness: Awake Hx Seizures: No Numbness or tingling in extremities: No Anesthesia Plan Anesthesia Risk discussed: Yes Anesthesia Plan: Verified ASA Class: III Anesthesia Type: MAC
[2022-08-01 07:08] LABS: Blood Urea Nitrogen 17 mg/dl (9-20); Creatinine Clearance Estimated 70 mL/min (50-200); Estimated Glomerular Filt Rate 109 ml/min (>60); GFR (African American) 131 ML/MIN (>60)
[2022-08-01 07:09] LABS: Anion Gap 8.6 mEq/L (5-15); Calcium 8.5 mg/dl (8.4-10.2); Carbon Dioxide 30 mmol/L (22.0-30.0); Chol/HDL Ratio 4.2 (1-3.5); Cholesterol 101 mg/dl (140-200); Glucose 208 mg/dl (74-100); HDL Cholesterol 24 mg/dl (40-60); Triglycerides 103 mg/dl (30-150); VLDL Cholesterol 21 mg/dL (0-40)
[2022-08-01 07:12] LABS: Basophils # 0.1 K/mm3 (0-0.2); Basophils % 1.1 % (0.1-2.0); Eosinophils # 0.4 K/mm3 (0.0-0.4); Hematocrit 37.4 % (42.0-52.0); Hemoglobin 12.3 g/dL (14.1-18.0); Lymphocytes # 1.1 K/mm3 (0.7-4.5); Lymphocytes % 13.9 % (10-50); Mean Corpuscular Hemoglobin 29.5 pg (27.0-31.2); Mean Corpuscular Volume 89.4 fl (80-94); Mean Platelet Volume 7.6 fl (7.4-10.4); Monocytes # 0.8 K/mm3 (0.1-1.0); Monocytes % 9.9 % (1.7-9.3); Neutrophils # 5.4 K/mm3 (1.8-7.8); Platelet Count 225 K/mm3 (142-424); Red Blood Count 4.19 M/mm3 (4.60-6.20); Red Cell Distribution Width 14.3 % (11.5-17.5); White Blood Count 7.7 K/mm3 (4.8-10.8)
[2022-08-01 07:20] LABS: Direct LDL Cholesterol 49.69 mg/dL (100-129)
[2022-08-01 08:10] LABS: Alanine Aminotransferase 18 U/L (12-78); Albumin Level 3.1 g/dl (3.5-5.0); Alkaline Phosphatase 153 U/L (38-126); Aspartate Amino Transferase 18 U/L (17-59); Bilirubin,Direct 0.1 mg/dl (0.0-0.4); Bilirubin,Indirect 0.5 mg/dL (0.0-0.9); Bilirubin,Total 0.6 mg/dl (0.2-1.3); Bilirubin,Unconjugated 0.5 mg/dL (0.0-1.1); Total Protein,Serum 5.6 g/dl (6.3-8.2)
--- NOTE | 2022-08-01 08:12 | EXP.ACUTE.PN ---
Subjective *Date: 08/01/22 *Time: 13:09 Interval history: Patient had a successful amputation of his second and third toes today. Uncomplicated, now has had a PICC line placed and a runoff study with stent placement. Please see podiatry/nursing/cardiology notes respectively for these procedures. Medical Exam Vital signs and Labs for Last 24 Hours: Vital Signs Temp Pulse Resp BP Pulse Ox 08/01/22 03:54 97.8 F 73 18 118/59 L 93 L 07/31/22 20:00 64 92 L 07/31/22 19:58 97.8 F 64 16 110/60 92 L 07/31/22 15:12 97.9 F 63 18 114/60 93 L Intake and Output 07/31/22 08/01/22 08/01/22 19:59 03:59 11:59 Intake Total 881 / 881 Output Total 400 / 725 325 / 725 0 / 725 Balance 481 / 156 -325 / 156 0 / 156 Intake: Intake, Oral Amount 480 / 480 Intake, Total IV Amount 401 / 401 Vancomycin/Water For Inj (Peg) 401 / 401 1.5 gm In 300 ml @ 150 mls/hr IV Q18H [facility] Rx#:[id number] Output: Output, Urine Amount 400 / 725 325 / 725 0 / 725 Other: Number of Voids 2 Number of Unmeasured Voids 1 1 0 Weight 185 lb 9.009 oz Patient Weight 08/01/22 11:59 Weight 185 lb 9.009 oz Laboratory Results - last 24 hr 07/31/22 12:14: POC Glucose 195 H 07/31/22 16:32: POC Glucose 199 H 07/31/22 20:25: POC Glucose 310 H* 08/01/22 06:05: POC Glucose 222 H 08/01/22 06:34: WBC 7.7, RBC 4.19 L, Hgb 12.3 L, Hct 37.4 L, MCV 89.4, MCH 29.5, MCHC 33.0, RDW 14.3, Plt Count 225, MPV 7.6, Neut % (Auto) 70.0, Lymph % (Auto) 13.9, Dent % (Auto) 9.9 H, Eos % (Auto) 5.0, Baso % (Auto) 1.1, Neut # (Auto) 5.4, Lymph # (Auto) 1.1, Dent # (Auto) 0.8, Eos # (Auto) 0.4, Baso # (Auto) 0.1 08/01/22 06:34: Sodium 139, Potassium 3.6, Chloride 104, Carbon Dioxide 30, Anion Gap 8.6, BUN 17, Creatinine 0.70, Estimated Creat Clear 70, Estimated GFR 109, Est GFR ( Amer) 131, Glucose 208 H, Calcium 8.5, Triglycerides 103, Cholesterol 101 L, LDL Cholesterol Direct 49.69 L, VLDL Cholesterol 21, HDL Cholesterol 24 L, Cholesterol/HDL Ratio 4.2 H 08/01/22 06:34: Total Bilirubin 0.6, Direct Bilirubin 0.1, Conjugated Bilirubin 0.0, Indirect Bilirubin 0.5, Unconjugated Bilirubin 0.5, AST 18 D, ALT 18 D, Alkaline Phosphatase 153 H, Total Protein 5.6 L, Albumin 3.1 L I & O for Labs for Last 24 Hours: Intake & Output 07/29/22 07/30/22 07/31/22 08/01/22 11:59 11:59 11:59 11:59 Intake Total 830 / 830 881 / 881 Output Total 0 / 0 725 / 725 Balance 830 / 830 156 / 156 Weight 186 lb 7 oz 185 lb 9.009 oz Comment:: Foot exam per podiatry. Cardiology films and notes reviewed Assessment and Plan *Assessment and plan (1) Peripheral arterial disease: Status: Acute Category: Medical Code(s): I73.9 - Peripheral vascular disease, unspecified (2) Diabetic foot ulcer: Status: Acute Qualifiers: Diabetic foot ulcer location: toe Diabetes mellitus type: type 2 Laterality: left Non-pressure ulcer stage: with necrosis of bone Qualified Code(s): E11.621 - Type 2 diabetes mellitus with foot ulcer; L97.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cified foot with unspecified severity (3) Osteomyelitis: Status: Acute Qualifiers: Laterality: left Osteomyelitis location: foot Osteomyelitis type: other acute Qualified Code(s): M86.172 - Other acute osteomyelitis, left ankle and foot Category: Medical Code(s): M86.9 - Osteomyelitis, unspecified (4) Diabetes mellitus: Status: Chronic Qualifiers: Diabetes mellitus complication status: with hyperglycemia Diabetes mellitus shelter insulin use: with long term care pharmacist use Diabetes mellitus type: type 2 Qualified Code(s): E11.65 - Type 2 diabetes mellitus with hyperglycemia; Z79.4 - director long term care (current) u
--- NOTE | 2022-08-01 08:32 | EXP.OP.NOTE ---
Date of procedure: 08/01/22 Pre-op Diagnosis:: Left 2-3rd toes diabetic foot ulcer Left toe osteomyelitis Left foot cellulitis Post-op Diagnosis:: Same Procedure performed:: Left second toe amputation Left third toe amputation Left foot I&D Surgeon:: Tosha Guy DPM MANAGING BROKER:: Karley Bañuelos Anesthesia: MAC Estimated blood loss (mL): 5 Clinical Note:: Patient is an 82-year-old male with diabetes who presented with osteomyelitis on CT scan. He was a direct admit Thursday per Dr. Keene. Has a history of left hallux amputation without healing complication. CTA abnormal. Plan for toe amputation with runoff procedure later today. We discussed conservative versus surgical treatment options. Conservative treatment options include local wound care, oral and IV antibiotics, change in shoe wear, taping/padding, and off-loading. We discussed surgical intervention for amputation of the toes. Patient understands that there is a chance that the remaining toes can migrate to fill the gap or the foot may change shape after surgery. Patient also understands that they could have wound healing complications including delayed healing and infection. We discussed that if the wound does not heal, it is possible that they may need a more proximal amputation and could result in further loss of digits, loss of partial foot or loss of leg. We discussed the risks and benefits in great detail. Other surgical risks include: prolonged pain and swelling, further infection requiring oral or IV antibiotics, delay in healing of soft tissue or bone, nerve or blood vessel damage, CRPS/RSD, DVT, anesthesia complications, and even . All questions answered. Patient verbalized understanding. Consent obtained. Operative findings:: Diabetic foot ulcer noted at the tip of the left second and third digits. Both ulcers were full-thickness and probed to bone. Exposed distal phalanx noted. Purulent drainage from the tip of the left second toe, wound culture taken. The distal phalanx of both the second and third toes was soft and crumbly. The base of both the second and third proximal phalanx was hard white and intact. No evidence of sinus tracking or infection tracking proximally. Overall prognosis is fair from an infection standpoint. Infection appears to be localized to the toes. The concern would be the decreased blood flow and healing potential. Operative note:: On this date and time patient was deemed an appropriate surgical candidate. With informed consent signed, the patient was taken to the operating theater. The patient was positioned supine. MAC anesthesia was induced. No tourniquet used. The left lower extremity was prepped and draped in a normal sterile fashion. IV vancomycin infused. Left foot irrigation and debridement, 2-3rd digit amputation: Cellulitis is noted extending to the second MPJ. Exposed distal phalanx as noted above. Yellow creamy purulence from the tip of the second toe, wound culture taken. A fish mouth incision was mapped out surrounding both the second and third toes. Utilizing a 15 blade dissection was carried down sharply to the level of the bone around the middle phalanx, which was disarticulated from the proximal phalanx. The distal and middle phalanx was evaluated and was noted to be soft and crumbly to both toes, it was sent as bone culture. The remaining pieces of the toe were sent for tissue culture including the excised ulcers. The proximal phalanx was disarticulated from the metatarsal heads 2?3. The base of the proximal phalanx appeared hard and intact. The proximal phalanx bones were sent as bone for pathology. The metal heart tarsal heads were evaluated. The met heads were intact hard with no obvious cortical erosions noted. The met heads were intact with no obvious signs of osteomyelitis. Next3L of gentamicin irrigation was used to flush the wound with pulse lavage. The wound was reexplored and no further signs of infection noted. No sinus tr
--- NOTE | 2022-08-01 08:38 | EXP.ANES.I ---
[facility] Anesthesia Record Part I Anesthesia Record I Intake, IV Amount: 100 Estimated blood loss (mL): 5 Urine output (mL): 0 Blood Pressure: 116/52 SaO2: 95 Pulse Rate: 82 Respiratory Rate: 18 Temperature: 97.4 F Patient is:: Awake Stable to PACU at:: 08:37
--- NOTE | 2022-08-01 08:45 | XR_ITS ---
FINAL REPORT CLINICAL HISTORY: Post op left 2-3rd toe amps COMPARISON: 07/23/2022 FINDINGS: Left foot Three views were obtained. There has been interval postoperative change from amputation of the 2nd and 3rd digits at the metatarsophalangeal joints. There is also amputation of the 1st digit at the metatarsophalangeal joint. There is a chronic fracture of the 5th metatarsal. There is new irregularity of the 4th proximal phalanx worrisome for a fracture. Mild degenerative change and plantar calcaneal spur is identified. IMPRESSION: Interval postoperative changes as detailed above. New irregularity of the forth proximal phalanx worrisome for a fracture. Reviewed, Interpreted and Dictated by Rocky Mancini III, MD Transcribed by Cynthia Ocasio Authenticated and [facility]
[2022-08-01 08:50] LABS: POC Glucose,Bedside 207 (70-110)
--- NOTE | 2022-08-01 10:04 | EXP.CARD.PN ---
Subjective Subjective Date: 08/01/22 Time: 09:30 Principal diagnosis: PAD, OM of L toe Interval history: This is an 82-year-old white gentleman who presented to the emergency department with increasing redness infection in his second toe of his left foot. He had been following with podiatry for this infected toe but due to the worsening nature of the infection he presented to the hospital. The patient does also have a history of osteomyelitis of the left great toe with amputation approximately 1 [address] of the left lower extremity shows osteomyelitis in the second toe of the left foot as well and the patient has underwent amputation this morning of the toe. However he does have an abnormal RELL and an abnormal CT angiogram with runoff of the left lower extremity. 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 This morning he denies any chest pain or pressure. He denies any shortness of breath. He reports the edema in his left foot has improved significantly. He denies any pain in the left lower extremity status post surgery. He denies any fever, chills, nausea, vomiting, diarrhea, PND or orthopnea. Exam Data for Last 24 hours Vital signs and Labs for Last 24 Hours: Temp Pulse Resp BP Pulse Ox 97.4 F L 82 18 116/52 L 93 L 08/01/22 08:39 08/01/22 08:39 08/01/22 08:39 08/01/22 08:39 08/01/22 03:54 Laboratory Results - last 24 hr 07/31/22 12:14: POC Glucose 195 H 07/31/22 16:32: POC Glucose 199 H 07/31/22 20:25: POC Glucose 310 H* 08/01/22 06:05: POC Glucose 222 H 08/01/22 06:34: WBC 7.7, RBC 4.19 L, Hgb 12.3 L, Hct 37.4 L, MCV 89.4, MCH 29.5, MCHC 33.0, RDW 14.3, Plt Count 225, MPV 7.6, Neut % (Auto) 70.0, Lymph % (Auto) 13.9, [place] % (Auto) 9.9 H, Eos % (Auto) 5.0, Baso % (Auto) 1.1, Neut # (Auto) 5.4, Lymph # (Auto) 1.1, [place] # (Auto) 0.8, Eos # (Auto) 0.4, Baso # (Auto) 0.1 08/01/22 06:34: Sodium 139, Potassium 3.6, Chloride 104, Carbon Dioxide 30, Anion Gap 8.6, BUN 17, Creatinine 0.70, Estimated Creat Clear 70, Estimated GFR 109, Est GFR ( Amer) 131, Glucose 208 H, Calcium 8.5, Triglycerides 103, Cholesterol 101 L, LDL Cholesterol Direct 49.69 L, VLDL Cholesterol 21, HDL Cholesterol 24 L, Cholesterol/HDL Ratio 4.2 H 08/01/22 06:34: Total Bilirubin 0.6, Direct Bilirubin 0.1, Conjugated Bilirubin 0.0, Indirect Bilirubin 0.5, Unconjugated Bilirubin 0.5, AST 18 D, ALT 18 D, Alkaline Phosphatase 153 H, Total Protein 5.6 L, Albumin 3.1 L 08/01/22 08:42: POC Glucose 207 H I & O for Last 24 hours: Intake & Output 07/29/22 07/30/22 07/31/22 08/01/22 23:59 23:59 23:59 23:59 Intake Total 480 / 830 1231 / 1231 100 / 100 Output Total 0 / 0 400 / 400 325 / 325 Balance 480 / 830 831 / 831 -225 / -225 Weight 187 lb 3 oz 186 lb 7 oz 185 lb 9.009 oz Radiology Reports for the Last 24 Hours: CTA of the abdomen/femoral runoff: Significantly limited evaluation of the distal lower legs bilaterally due to opacified veins.? Catheter directed angiography may be necessary to evaluate the lower leg arterial structures.? ? Multifocal stenoses of the left posterior tibial artery.? Occlusion of the mid to distal left posterior tibial artery cannot be excluded.? Moderate stenosis of the mid to distal right SFA, approximately 60%.? ? Multiple mild stenoses of the left SFA. Constitutional Constitutional: no acute distress and average body habitus *Routine HEENT Exam Head: Present normocephalic and atraumatic ENT: Present mucous membranes moist *Routine Neck Exam Neck: Present supple, full ROM and normal carotid upstroke; Absent JVD, carotid bruit or lymphadenopathy *Routine Respiratory Exam Respiratory: Present CTA bilaterally, normal respiratory effort, able to speak in complete sentences and symmetric chest movement *Routine Cardiovascular Exam
--- NOTE | 2022-08-01 10:08 | PC.NURSE ---
courtesy tech round: pt sitting up in bed and is clipped and prepped for the laboratory geneticist
--- NOTE | 2022-08-01 10:13 | SUR.PHASEI ---
late entry 0844 BS obtained with results of 207. Cyn Bañuelos CRNA notified. No new orders given at this time. [address] Dr. Guy at bedside talking with patient 0912 called and gave detailed report to Luis Rooney RN 0916 transported via bed to med/surg room. vital signs stable. denies pain at this time. left in stable condition with Luis Rooney RN at bedside.
[2022-08-01 11:54] LABS: CATHL Activated Clotting Time 394 SEC (74-125)
--- NOTE | 2022-08-01 13:25 | SW/DCPLANNER ---
Addendum entered by Nadya Quispe 08/04/22 14:00: This patient has been approved for admission at [facility] tomorrow morning per Luis treadwell/ JT. Luis has requested a COVID swab prior to discharge. I have updated MD and family regarding discharge plan. Addendum entered by Nadya Quispe 08/01/22 15:19: Patient is agreeable to placement at time of discharge. Original Note: I spoke with patient's family and MD regarding plans once medically stable for discharge. Family stated that patient is wanting to return home once medically stable. MD stated that since patient will need PT, wound care and IV antibiotics he would prefer patient to go to SNF level of care. After lengthy discussion with family they would prefer patient go to [facility] or [facility]. Patient information has been faxed to [facility] at this time. MD stated that wound cultures will not result till Thursday or Thursday. I will follow up with patient regarding discharge plans once he returns from biological lab technician. Patient will not be ready for discharge till the first of next week.
--- NOTE | 2022-08-01 14:27 | SUR.PHASEII ---
Asked Dr reyes if its okay to insert midline instead of picc line, stated that was ok, Tyrell DAVIS at beside inserting midline.
--- NOTE | 2022-08-01 15:14 | PC.NURSE ---
1400 - Received call from Leon Thurman RN r/t difficulty getting PICC to thread during insertion. Miguel AndradeRN and this nurse to bedside to attempt to gain access. Multiple attempts had already been made w/ inability to thread guide wire. Access gained using 5 Fr double lumen PICC in left upper arm, guide wire threaded w/o difficulty, PICC line introduced all using sterile technique. PICC threaded to 10 cm marking but then unable to thread any farther. Multiple attempts made after repositioning but still unable to thread. Difficulty relayed to Dr. Grey, new order received for midline. Successful placement of 4 Fr midline in left upper arm, length @ 15 cm w/ blood return noted.
--- NOTE | 2022-08-01 16:26 | HMH.PTEV ---
Physical Therapy Evaluation Rehab PT IP Evaluation Start: 08/01/22 07:29 Freq: ONCE Status: Active Protocol: Document 08/01/22 16:23 PHORNE (Rec: 08/01/22 16:26 PHORNE [id number]) Subjective/History History History 82 yowm adm to [facility] with L foot osteomyelitis. Now S/P L toes 2-3 amputation. He has hx of prior L GT amputation as wwll. He reports he lives with his spouse, no steps to enter the home and he uses a cane for ambulation at baseline. Subjective Subjective No c/o pain at this time. Rehab PT IP Eval Objective Appearance Patient Behavior Appropriate Patient Orientation Person,Place,Time Difficulty following instructions none Speech Pattern Clear Ambulation Patient Able to Ambulate No Balance Ability to Arise Able, uses arms to help Sitting Balance Steady, safe Standing Balance Steady, wide stance Dynamic Sitting Balance Ability Good Dynamic Standing Balance Ability Fair Transfers Bed Transfer Ability Contact Guard/Hand Hold Chair Transfer Ability Moderate x 1 (50% assist) Sit to Stand Bed Transfer Ability Moderate x 1 (50% assist) Sit to Stand Chair Transfer Ability Moderate x 1 (50% assist) Rehab PT IP prob,goals,plan Problems Date of Evaluation: 08/01/22 PT IP Problems Bed Mobility,Transfers,Gait, Self care Rehab Potential Rehab Potential Good Plan PT Intervention Plan Bed Mobility,Transfers,Gait, Self care,Therapeutic Exercise PT Plan Frequency BID Duration LOS Discharge Goals Bed Transfer Ability Supervision/Stand by Sit to Stand Chair Transfer Ability Minimal x 1 (25% assist) Ambulation Assistive Device Rolling Walker Ambulation Distance (feet) 20 Discharge Plan PT Discharge Plan Pt is currently most appropriate for rehab placement, but could return home with family if ambulation improved over the next several days. IV abx requirement could also hamper d/c to home ability. G -code Required No Eval Complexity Eval Charge Codes 27505 - Moderate Complexity PHYSICIAN CERTIFICATION: I certify the specified therapy services for Aurelio Patton Jr are required, authorized, and reviewe
[2022-08-01 16:27] LABS: POC Glucose,Bedside 183 (70-110)
--- NOTE | 2022-08-01 20:16 | PC.NURSE ---
Pt is A/Ox4. He has been down to has toe amputation, and then went down for a run off. He had a midline placed. The dressing has blood saturating the gauze dressing. Spoke with Lakeisha DAVIS and had her look at it and stated that it was fine. If needed reenforce dressing with 2x2 and coban to give pressure. He has tolerated his diet once back from both procedures.
[2022-08-01 21:46] LABS: POC Glucose,Bedside 277 (70-110)
[2022-08-02] VITALS: BP 150/70; PULSE 82; RESP 18; TEMP 37.8; O2SAT 94
[2022-08-02 00:55] LABS: Vancomycin,Trough 12.2 ug/mL (5.0-10.0)
--- NOTE | 2022-08-02 01:01 | PC.NURSE ---
Sania from [facility] called at this time for vanc trough, Sania stated ok to give 0100 dose
--- NOTE | 2022-08-02 03:57 | PC.NURSE ---
pt has rested well this shift, has had no complaints of pain, dressing in place to LLE, remains on room air, O2 sats 93-94%
[2022-08-02 04:00] VITALS: BP 134/56; PULSE 84; RESP 18; TEMP 38.2; O2SAT 93
--- NOTE | 2022-08-02 05:17 | PC.NURSE ---
Addendum entered by SUNNY Bowles 08/02/22 05:25: Bed number was [id number] Original Note: Attempted to get patients AM weight was not able to obtain it. Tried unplugging and replugging bed, tried both sides, and also had another tech troubleshoot as well. Nurse notified of issue
[2022-08-02 06:22] LABS: POC Glucose,Bedside 214 (70-110)
[2022-08-02 07:20] LABS: Chloride 104 mmol/L (98-107); Potassium 3.7 mmoL/L (3.5-5.1); Sodium 138 mmol/L (136-145)
[2022-08-02 07:22] LABS: Basophils # 0.1 K/mm3 (0-0.2); Basophils % 0.8 % (0.1-2.0); Blood Urea Nitrogen 19 mg/dl (9-20); Creatinine Clearance Estimated 70 mL/min (50-200); Eosinophils # 0.3 K/mm3 (0.0-0.4); Eosinophils % 3.5 % (0.1-12.0); Estimated Glomerular Filt Rate 109 ml/min (>60); GFR (African American) 131 ML/MIN (>60); Hematocrit 36.2 % (42.0-52.0); Hemoglobin 11.9 g/dL (14.1-18.0); Lymphocytes # 1.1 K/mm3 (0.7-4.5); Mean Corpuscular HGB Conc 32.9 g/dL (31.8-35.4); Mean Corpuscular Hemoglobin 29.5 pg (27.0-31.2); Mean Corpuscular Volume 89.5 fl (80-94); Mean Platelet Volume 7.4 fl (7.4-10.4); Monocytes # 0.9 K/mm3 (0.1-1.0); Monocytes % 9.4 % (1.7-9.3); Neutrophils # 7.4 K/mm3 (1.8-7.8); Neutrophils % 75.2 % (37.0-80.0); Platelet Count 224 K/mm3 (142-424); Red Blood Count 4.04 M/mm3 (4.60-6.20); Red Cell Distribution Width 14.4 % (11.5-17.5); White Blood Count 9.8 K/mm3 (4.8-10.8)
[2022-08-02 07:23] LABS: Alanine Aminotransferase 18 U/L (12-78); Albumin Level 3.1 g/dl (3.5-5.0); Albumin/Globulin Ratio 1.2 (1.1-1.8); Alkaline Phosphatase 125 U/L (38-126); Anion Gap 8.7 mEq/L (5-15); Aspartate Amino Transferase 18 U/L (17-59); Bilirubin,Total 0.4 mg/dl (0.2-1.3); Carbon Dioxide 29 mmol/L (22.0-30.0); Globulin 2.5 g/dL (1.3-3.2); Total Protein,Serum 5.6 g/dl (6.3-8.2)
[2022-08-02 07:24] LABS: Calcium 8.3 mg/dl (8.4-10.2); Glucose 192 mg/dl (74-100)
[2022-08-02 07:30] LABS: C-Reactive Protein 24.6 mg/L (0-4)
[2022-08-02 08:16] VITALS: BP 116/49; PULSE 72; RESP 18; TEMP 36.8; O2SAT 94
--- NOTE | 2022-08-02 08:46 | EXP.ACUTE.PN ---
Subjective *Date: 08/02/22 *Time: 08:46 Interval history: Patient with no new complaints today. Medical Exam Vital signs and Labs for Last 24 Hours: Vital Signs Temp Pulse Pulse Pulse Resp BP BP 08/02/22 08:16 98.2 F 72 18 116/49 L 08/02/22 04:00 100.8 F H 84 18 134/56 L 08/02/22 00:00 100.0 F H 82 18 150/70 H 08/01/22 20:00 69 08/01/22 20:00 98.8 F 69 18 137/54 L 08/01/22 19:15 66 18 146/55 H 08/01/22 18:15 68 18 142/54 H 08/01/22 17:15 71 18 136/86 08/01/22 16:15 65 19 135/65 08/01/22 15:15 65 20 159/78 H 08/01/22 14:45 66 18 153/81 H 08/01/22 14:15 63 14 152/69 H 08/01/22 09:16 97.4 F L 76 20 126/57 L 08/01/22 09:07 97.4 F L 75 17 132/59 L 08/01/22 08:57 97.4 F L 81 17 124/51 L 08/01/22 08:47 97.4 F L 86 16 123/60 08/01/22 13:45 64 18 141/68 H 08/01/22 13:15 68 18 148/67 H 08/01/22 13:00 68 18 144/68 H 08/01/22 12:45 68 18 131/63 08/01/22 12:30 70 18 132/62 08/01/22 12:15 72 18 136/70 08/01/22 12:10 72 18 136/67 08/01/22 12:05 75 18 135/69 08/01/22 12:02 75 08/01/22 12:00 74 17 139/62 Pulse Ox 08/02/22 08:16 94 L 08/02/22 04:00 93 L 08/02/22 00:00 94 L 08/01/22 20:00 93 L 08/01/22 20:00 93 L 08/01/22 19:15 94 L 08/01/22 18:15 96 08/01/22 17:15 95 10/28/22 16:15 96 08/01/22 15:15 95 08/01/22 14:45 93 L 08/01/22 14:15 100 08/01/22 09:16 92 L 08/01/22 09:07 94 L 08/01/22 08:57 93 L 08/01/22 08:47 92 L 08/01/22 13:45 93 L 08/01/22 13:15 92 L 08/01/22 13:00 95 08/01/22 12:45 90 L 08/01/22 12:30 92 L 08/01/22 12:15 94 L 08/01/22 12:10 95 08/01/22 12:05 95 08/01/22 12:02 08/01/22 12:00 92 L Intake and Output 08/01/22 08/02/22 08/02/22 23:59 07:59 15:59 Intake Total 300 / 300 Output Total 400 / 975 800 / 800 Balance -400 / -755 -500 / -500 Intake: Intake, Total IV Amount 300 / 300 Vancomycin/Water For Inj (Peg) 300 / 300 1.5 gm In 300 ml @ 150 mls/hr IV Q18H [facility] Rx#:[id number] Output: Output, Urine Amount 400 / 975 800 / 800 Laboratory Results - last 24 hr 08/01/22 07:19: POC Glucose 183 H 08/01/22 08:42: POC Glucose 207 H 08/01/22 11:30: Activated Clotting Time 394 H* 08/01/22 20:14: POC Glucose 277 H 08/02/22 00:10: Vancomycin Trough 12.2 H 08/02/22 05:09: POC Glucose 214 H 08/02/22 06:35: WBC 9.8 D, RBC 4.04 L, Hgb 11.9 L, Hct 36.2 L, MCV 89.5, MCH 29.5, MCHC 32.9, RDW 14.4, Plt Count 224, MPV 7.4, Neut % (Auto) 75.2, Lymph % (Auto) 11.0, [place] % (Auto) 9.4 H, Eos % (Auto) 3.5, Baso % (Auto) 0.8, Neut # (Auto) 7.4, Lymph # (Auto) 1.1, [place] # (Auto) 0.9, Eos # (Auto) 0.3, Baso # (Auto) 0.1 08/02/22 06:35: Sodium 138, Potassium 3.7, Chloride 104, Carbon Dioxide 29, Anion Gap 8.7, BUN 19, Creatinine 0.70, Estimated Creat Clear 70, Estimated GFR 109, Est GFR ( Amer) 131, Glucose 192 H, Calcium 8.3 L, Total Bilirubin 0.4, AST 18, ALT 18, Alkaline Phosphatase 125, C-Reactive Protein 24.6 H D, Total Protein 5.6 L, Albumin 3.1 L, Globulin 2.5, Albumin/Globulin Ratio 1.2 08/02/22 06:35: Vancomycin Peak 21.0 I & O for Labs for Last 24 Hours: Intake & Output 07/30/22 07/31/22 08/01/22 08/02/22 23:59 23:59 23:59 23:59 Intake Total 480 / 830 1231 / 1231 220 / 220 300 / 300 Output Total 0 / 0 400 / 400 725 / 975 800 / 800 Balance 480 / 830 831 / 831 -505 / -755 -500 / -500 Weight 187 lb 3 oz 186 lb 7 oz 185 lb 9.009 oz Microbiology Reports for the Last 24 Hours: Microbiology 08/01/22 08:04 Toe,Left Second Gram Stain - Final 07/30/22 20:20 Blood Blood Culture - Preliminary NO GROWTH AFTER 48 HOURS 07/30/22 20:20 Blood Blood Culture - Preliminary NO GROWTH AFTER 48 HOURS Constitutional: Present no acute distress Respiratory: Present CT
[2022-08-02 09:42] LABS: Erythrocyte Sedimentation Rate 42 mm/hr (0-20)
--- NOTE | 2022-08-02 09:59 | P.CONPHA_ITS ---
Pharmacy Consult Date: 08/02/22 Time: 09:59 Referring provider: DR. RICKS Reason for Consult:: VANCOMCYIN LEVEL Allergies Allergy/AdvReac Type Severity Reaction Status Date / Time No Known Allergies Allergy Verified 07/30/22 15:22 Home Medications Medication Instructions Recorded Confirmed Type atorvastatin 80 mg tablet 80 mg PO HS Hyperlipidemia 02/03/21 07/30/22 History propylthiouracil 50 mg tablet 50 mg PO TID hyperthyrodism 02/03/21 07/30/22 History tamsulosin 0.4 mg capsule 0.4 mg PO HS prostate 03/07/21 07/30/22 History escitalopram oxalate 10 mg tablet 10 mg PO DAILY Depression 03/08/21 07/30/22 History insulin NPH-regular 70-30 U-100 12 unit SQ BID Diabetes 12/30/21 07/31/22 History insulin 100 unit/mL subcutaneous pen (Novolin 70-30 FlexPen U-100 Insulin) levofloxacin 750 mg tablet 750 mg PO DAILY 14 days #14 tabs 07/23/22 07/30/22 Rx insulin aspart U-100 100 unit/mL 90 unit SQ DAILY diabetes 07/31/22 07/31/22 History subcutaneous solution (Novolog U-100 Insulin aspart) New Prescriptions to Start Prescriptions: Height: 1.83 m Weight: 84.17 kg Laboratory Results:: Laboratory Results - last 24 hr 08/01/22 07:19: POC Glucose 183 H 08/01/22 11:30: Activated Clotting Time 394 H* 08/01/22 20:14: POC Glucose 277 H 08/02/22 00:10: Vancomycin Trough 12.2 H 08/02/22 05:09: POC Glucose 214 H 08/02/22 06:35: WBC 9.8 D, RBC 4.04 L, Hgb 11.9 L, Hct 36.2 L, MCV 89.5, MCH 29.5, MCHC 32.9, RDW 14.4, Plt Count 224, MPV 7.4, Neut % (Auto) 75.2, Lymph % (Auto) 11.0, [place] % (Auto) 9.4 H, Eos % (Auto) 3.5, Baso % (Auto) 0.8, Neut # (Auto) 7.4, Lymph # (Auto) 1.1, [place] # (Auto) 0.9, Eos # (Auto) 0.3, Baso # (Auto) 0.1 08/02/22 06:35: Sodium 138, Potassium 3.7, Chloride 104, Carbon Dioxide 29, Anion Gap 8.7, BUN 19, Creatinine 0.70, Estimated Creat Clear 70, Estimated GFR 109, Est GFR ( Amer) 131, Glucose 192 H, Calcium 8.3 L, Total Bilirubin 0.4, AST 18, ALT 18, Alkaline Phosphatase 125, C-Reactive Protein 24.6 H D, [place] l Protein 5.6 L, Albumin 3.1 L, Globulin 2.5, Albumin/Globulin Ratio 1.2 08/02/22 06:35: Vancomycin Peak 21.0 08/02/22 06:35: ESR 42 H Medical History: Medical History (Updated 07/31/22 @ 10:40 by Angelica Luis APRN) Cellulitis of toe of left foot COVID-19 Diabetes mellitus Diabetic foot Diabetic foot ulcer Edema of left lower extremity Encounter for wound care Gas gangrene of foot Hyperlipidemia Hypomagnesemia Keratosis Nail dystrophy Osteomyelitis Other specified symptoms and signs involving the circulatory and respiratory systems Peripheral arterial disease Postoperative wound dehiscence Shortness of Breath SIRS (systemic inflammatory response syndrome) 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 RECOMMEND CONTINUING WITH VANCOMYCIN 1750 MG Q18H AT THIS TIME.
[2022-08-02 12:03] VITALS: BP 137/64; PULSE 72; RESP 20; TEMP 36.9; O2SAT 95
--- NOTE | 2022-08-02 12:05 | PC.NURSE ---
pt had 1 unmeasured void
[2022-08-02 12:07] LABS: POC Glucose,Bedside 247 (70-110)
--- NOTE | 2022-08-02 13:12 | EXP.PHA.PN ---
Subjective *Date: 08/02/22 *Time: 13:12 Medical Exam Vital signs and Labs for Last 24 Hours: Vital Signs Temp Pulse Pulse Resp BP Pulse Ox 08/02/22 12:03 98.5 F 72 20 137/64 95 08/02/22 08:16 98.2 F 72 18 116/49 L 94 L 08/02/22 04:00 100.8 F H 84 18 134/56 L 93 L 08/02/22 00:00 100.0 F H 82 18 150/70 H 94 L 08/01/22 20:00 69 93 L 08/01/22 20:00 98.8 F 69 18 137/54 L 93 L 08/01/22 19:15 66 18 146/55 H 94 L 08/01/22 18:15 68 18 142/54 H 96 08/01/22 17:15 71 18 136/86 95 08/01/22 16:15 65 19 135/65 96 08/01/22 15:15 65 20 159/78 H 95 08/01/22 14:45 66 18 153/81 H 93 L 08/01/22 14:15 63 14 152/69 H 100 08/01/22 13:45 64 18 141/68 H 93 L 08/01/22 13:15 68 18 148/67 H 92 L Intake and Output 08/01/22 08/02/22 08/02/22 23:59 07:59 15:59 Intake Total 300 / 1020 720 / 1020 Output Total 400 / 975 800 / 800 0 / 800 Balance -400 / -755 -500 / 220 720 / 220 Intake: Intake, Oral Amount 720 / 720 Intake, Total IV Amount 300 / 300 Vancomycin/Water For Inj (Peg) 300 / 300 1.5 gm In 300 ml @ 150 mls/hr IV Q18H [facility] Rx#:[id number] Output: Output, Urine Amount 400 / 975 800 / 800 0 / 800 Other: Number of Unmeasured Voids 1 Weight 84.17 kg Patient Weight 08/02/22 23:59 Weight 84.17 kg Laboratory Results - last 24 hr 08/01/22 07:19: POC Glucose 183 H 08/01/22 20:14: POC Glucose 277 H 08/02/22 00:10: Vancomycin Trough 12.2 H 08/02/22 05:09: POC Glucose 214 H 08/02/22 06:35: WBC 9.8 D, RBC 4.04 L, Hgb 11.9 L, Hct 36.2 L, MCV 89.5, MCH 29.5, MCHC 32.9, RDW 14.4, Plt Count 224, MPV 7.4, Neut % (Auto) 75.2, Lymph % (Auto) 11.0, [place] % (Auto) 9.4 H, Eos % (Auto) 3.5, Baso % (Auto) 0.8, Neut # (Auto) 7.4, Lymph # (Auto) 1.1, [place] # (Auto) 0.9, Eos # (Auto) 0.3, Baso # (Auto) 0.1 08/02/22 06:35: Sodium 138, Potassium 3.7, Chloride 104, Carbon Dioxide 29, Anion Gap 8.7, BUN 19, Creatinine 0.70, Estimated Creat Clear 70, Estimated GFR 109, Est GFR ( Amer) 131, Glucose 192 H, Calcium 8.3 L, Total Bilirubin 0.4, AST 18, ALT 18, Alkaline Phosphatase 125, C-Reactive Protein 24.6 H D, Total Protein 5.6 L, Albumin 3.1 L, Globulin 2.5, Albumin/Globulin Ratio 1.2 08/02/22 06:35: Vancomycin Peak 21.0 08/02/22 06:35: ESR 42 H 08/02/22 12:00: POC Glucose 247 H I & O for Labs for Last 24 Hours: Intake & Output 07/30/22 07/31/22 08/01/22 08/02/22 23:59 23:59 23:59 23:59 Intake Total 480 / 830 1231 / 1231 220 / 220 1020 / 1020 Output Total 0 / 0 400 / 400 725 / 975 800 / 800 Balance 480 / 830 831 / 831 -505 / -755 220 / 220 Weight 84.907 kg 84.567 kg 84.17 kg 84.17 kg Microbiology Reports for the Last 24 Hours: Microbiology 08/01/22 08:04 Toe,Left Second Gram Stain - Final 07/30/22 20:20 Blood Blood Culture - Preliminary NO GROWTH AFTER 48 HOURS 07/30/22 20:20 Blood Blood Culture - Preliminary NO GROWTH AFTER 48 HOURS The patient's infection will respond to the chosen ABx?: Yes Is the patient receiving the right drug, dose, and route?: Yes Could a more targeted ABx be ordered?: No
[2022-08-02 16:00] VITALS: BP 133/52; PULSE 72; RESP 18; TEMP 36.9; O2SAT 93
--- NOTE | 2022-08-02 16:06 | PC.NURSE ---
pt had 1 unmeasured void
[2022-08-02 17:21] LABS: POC Glucose,Bedside 277 (70-110)
--- NOTE | 2022-08-02 17:21 | PC.NURSE ---
Changed pts midline dressing
[2022-08-02 20:00] VITALS: BP 113/58; PULSE 76; RESP 20; TEMP 37.1; O2SAT 93
[2022-08-02 20:20] LABS: POC Glucose,Bedside 329 (70-110)
[2022-08-03 04:00] VITALS: BP 134/65; PULSE 73; RESP 20; TEMP 36.7; O2SAT 94
--- NOTE | 2022-08-03 04:48 | PC.NURSE ---
Addendum entered by Oma Vazquez RN 08/03/22 04:56: IS placed at bedside this shift, education provided to pt on how to correctly use, pt voiced understanding Original Note: pt has rested intermittently t/o shift, has remained on room air, no complaints of SOA or pain, up to chair some this shift, dressing to LLE, C/D/I
[2022-08-03 05:00] VITALS: BMI 25.4
[2022-08-03 06:33] LABS: POC Glucose,Bedside 197 (70-110)
--- NOTE | 2022-08-03 07:17 | EXP.ACUTE.PN ---
Subjective *Date: 08/03/22 *Time: 07:17 Interval history: Patient with no new complaints today, currently eating breakfast. Medical Exam Vital signs and Labs for Last 24 Hours: Vital Signs Temp Pulse Resp BP Pulse Ox 08/03/22 04:00 98.1 F 73 20 134/65 94 L 08/02/22 20:00 93 L 08/02/22 20:00 98.7 F 76 20 113/58 L 93 L 08/02/22 16:00 98.4 F 72 18 133/52 L 93 L 08/02/22 12:03 98.5 F 72 20 137/64 95 08/02/22 08:16 98.2 F 72 18 116/49 L 94 L Intake and Output 08/02/22 08/02/22 08/03/22 15:59 23:59 07:59 Intake Total 1080 / 1740 360 / 1740 400 / 400 Output Total 0 / 1450 650 / 1450 1100 / 1100 Balance 1080 / 290 -290 / 290 -700 / -700 Intake: Intake, Oral Amount 1080 / 1440 360 / 1440 Intake, Total IV Amount 400 / 400 Ceftriaxone Sodium 1 gm In 0.9 50 / 50 % Sodium Chloride 50 ml @ 100 mls/hr IV Q24H [facility] Rx#:[id number] Vancomycin/Water For Inj (Peg) 350 / 350 1.5 gm In 300 ml @ 150 mls/hr IV Q18H [facility] Rx#:[id number] Output: Output, Urine Amount 0 / 1450 650 / 1450 1100 / 1100 Other: Number of Unmeasured Voids 1 1 Weight 185 lb 9.009 oz 188 lb 6.4 oz Patient Weight 08/03/22 23:59 Weight 188 lb 6.4 oz Laboratory Results - last 24 hr 08/02/22 06:35: WBC 9.8 D, RBC 4.04 L, Hgb 11.9 L, Hct 36.2 L, MCV 89.5, MCH 29.5, MCHC 32.9, RDW 14.4, Plt Count 224, MPV 7.4, Neut % (Auto) 75.2, Lymph % (Auto) 11.0, [place] % (Auto) 9.4 H, Eos % (Auto) 3.5, Baso % (Auto) 0.8, Neut # (Auto) 7.4, Lymph # (Auto) 1.1, [place] # (Auto) 0.9, Eos # (Auto) 0.3, Baso # (Auto) 0.1 08/02/22 06:35: Sodium 138, Potassium 3.7, Chloride 104, Carbon Dioxide 29, Anion Gap 8.7, BUN 19, Creatinine 0.70, Estimated Creat Clear 70, Estimated GFR 109, Est GFR ( Amer) 131, Glucose 192 H, Calcium 8.3 L, Total Bilirubin 0.4, AST 18, ALT 18, Alkaline Phosphatase 125, C-Reactive Protein 24.6 H D, Total Protein 5.6 L, Albumin 3.1 L, Globulin 2.5, Albumin/Globulin Ratio 1.2 08/02/22 06:35: Vancomycin Peak 21.0 08/02/22 06:35: ESR 42 H 08/02/22 12:00: POC Glucose 247 H 08/02/22 17:07: POC Glucose 277 H 08/02/22 20:06: POC Glucose 329 H* 08/03/22 06:11: POC Glucose 197 H I & O for Labs for Last 24 Hours: Intake & Output 07/31/22 08/01/22 08/02/22 08/03/22 23:59 23:59 23:59 23:59 Intake Total 1231 / 1231 220 / 220 1740 / 1740 400 / 400 Output Total 400 / 400 725 / 975 1450 / 1450 1100 / 1100 Balance 831 / 831 -505 / -755 290 / 290 -700 / -700 Weight 186 lb 7 oz 185 lb 9.009 oz 185 lb 9.009 oz 188 lb 6.4 oz Microbiology Reports for the Last 24 Hours: Microbiology 08/01/22 08:04 Toe,Left Second Gram Stain - Final 08/01/22 08:04 Toe,Left Second Wound Culture - Preliminary NO GROWTH AFTER 24 HOURS 08/01/22 08:04 Foot,Left - Left Gram Stain - Final 08/01/22 08:04 Foot,Left - Left Surgical Biopsy Culture - Preliminary NO GROWTH AFTER 24 HOURS 08/01/22 08:04 Foot,Left - Left Bone Culture - Preliminary NO GROWTH AFTER 24 HOURS Constitutional: Present no acute distress Respiratory: Present CTA bilaterally Cardiac: Present Reg Rate and Rhythm Comment:: Wrap in place on left foot Assessment and Plan *Assessment and plan (1) Peripheral arterial disease: Status: Acute Category: Medical Code(s): I73.9 - Peripheral vascular disease, unspecified (2) Diabetic foot ulcer: Status: Acute Qualifiers: Diabetic foot ulcer location: toe Diabetes mellitus type: type 2 Laterality: left Non-pressure ulcer stage: with necrosis of bone Qualified Code(s): E11.621 - Type 2 diabetes mellitus with foot ulcer; L97.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
[2022-08-03 07:23] LABS: Chloride 99 mmol/L (98-107)
[2022-08-03 07:24] LABS: Potassium 3.7 mmoL/L (3.5-5.1); Sodium 136 mmol/L (136-145)
[2022-08-03 07:26] LABS: Alanine Aminotransferase 19 U/L (12-78); Alkaline Phosphatase 131 U/L (38-126); Anion Gap 11.7 mEq/L (5-15); Aspartate Amino Transferase 18 U/L (17-59); Bilirubin,Total 0.6 mg/dl (0.2-1.3); Blood Urea Nitrogen 15 mg/dl (9-20); Carbon Dioxide 29 mmol/L (22.0-30.0); Creatinine Clearance Estimated 71 mL/min (50-200); Estimated Glomerular Filt Rate 130 ml/min (>60); GFR (African American) 157 ML/MIN (>60)
[2022-08-03 07:27] LABS: Albumin Level 3.1 g/dl (3.5-5.0); Albumin/Globulin Ratio 1.2 (1.1-1.8); Calcium 8.4 mg/dl (8.4-10.2); Globulin 2.6 g/dL (1.3-3.2); Glucose 218 mg/dl (74-100); Total Protein,Serum 5.7 g/dl (6.3-8.2)
[2022-08-03 07:32] LABS: C-Reactive Protein 49.4 mg/L (0-4)
[2022-08-03 08:00] VITALS: O2SAT 95
[2022-08-03 08:06] VITALS: BP 120/58; PULSE 75; RESP 18; TEMP 36.6; O2SAT 95
[2022-08-03 08:24] LABS: Basophils # 0.1 K/mm3 (0-0.2); Basophils % 0.9 % (0.1-2.0); Eosinophils # 0.4 K/mm3 (0.0-0.4); Eosinophils % 3.8 % (0.1-12.0); Hematocrit 36.9 % (42.0-52.0); Hemoglobin 12.2 g/dL (14.1-18.0); Lymphocytes # 1.1 K/mm3 (0.7-4.5); Lymphocytes % 11.3 % (10-50); Mean Corpuscular HGB Conc 32.9 g/dL (31.8-35.4); Mean Corpuscular Hemoglobin 29.4 pg (27.0-31.2); Mean Corpuscular Volume 89.3 fl (80-94); Mean Platelet Volume 7.5 fl (7.4-10.4); Monocytes # 0.9 K/mm3 (0.1-1.0); Monocytes % 9.2 % (1.7-9.3); Neutrophils # 6.9 K/mm3 (1.8-7.8); Neutrophils % 74.9 % (37.0-80.0); Platelet Count 243 K/mm3 (142-424); Red Blood Count 4.13 M/mm3 (4.60-6.20); Red Cell Distribution Width 14.5 % (11.5-17.5); White Blood Count 9.3 K/mm3 (4.8-10.8)
[2022-08-03 11:12] LABS: Erythrocyte Sedimentation Rate 62 mm/hr (0-20)
[2022-08-03 12:15] LABS: POC Glucose,Bedside 327 (70-110)
--- NOTE | 2022-08-03 12:43 | P.PN_ITS ---
Subjective *Date: 08/03/22 *Time: 12:43 Medical Exam Vital signs and Labs for Last 24 Hours: Vital Signs Temp Pulse Resp BP Pulse Ox 08/03/22 08:06 97.9 F 75 18 120/58 L 95 08/03/22 04:00 98.1 F 73 20 134/65 94 L 08/02/22 20:00 93 L 08/02/22 20:00 98.7 F 76 20 113/58 L 93 L 08/02/22 16:00 98.4 F 72 18 133/52 L 93 L Intake and Output 08/02/22 08/03/22 08/03/22 23:59 07:59 15:59 Intake Total 360 / 1740 400 / 760 360 / 760 Output Total 650 / 1450 1100 / 1380 280 / 1380 Balance -290 / 290 -700 / -620 80 / -620 Intake: Intake, Oral Amount 360 / 1440 360 / 360 Intake, Total IV Amount 400 / 400 Ceftriaxone Sodium 1 gm In 0.9 50 / 50 % Sodium Chloride 50 ml @ 100 mls/hr IV Q24H [facility] Rx#:[id number] Vancomycin/Water For Inj (Peg) 350 / 350 1.5 gm In 300 ml @ 150 mls/hr IV Q18H [facility] Rx#:[id number] Output: Output, Urine Amount 650 / 1450 1100 / 1380 280 / 1380 Other: Number of Unmeasured Voids 1 Weight 85.457 kg Patient Weight 08/03/22 23:59 Weight 85.457 kg Laboratory Results - last 24 hr 08/02/22 17:07: POC Glucose 277 H 08/02/22 20:06: POC Glucose 329 H* 08/03/22 06:11: POC Glucose 197 H 08/03/22 06:57: WBC 9.3, RBC 4.13 L, Hgb 12.2 L, Hct 36.9 L, MCV 89.3, MCH 29.4, MCHC 32.9, RDW 14.5, Plt Count 243, MPV 7.5, Neut % (Auto) 74.9, Lymph % (Auto) 11.3, [place] % (Auto) 9.2, Eos % (Auto) 3.8, Baso % (Auto) 0.9, Neut # (Auto) 6.9, Lymph # (Auto) 1.1, [place] # (Auto) 0.9, Eos # (Auto) 0.4, Baso # (Auto) 0.1 08/03/22 06:57: Sodium 136, Potassium 3.7, Chloride 99, Carbon Dioxide 29, Anion Gap 11.7, BUN 15, Creatinine 0.60 L, Estimated Creat Clear 71, Estimated GFR 130, Est GFR ( Amer) 157, Glucose 218 H, Calcium 8.4, Total Bilirubin 0.6, AST 18, ALT 19, Alkaline Phosphatase 131 H, C-Reactive Protein 49.4 H D, Total Protein 5.7 L, Albumin 3.1 L, Globulin 2.6, Albumin/Globulin Ratio 1.2 08/03/22 06:57: ESR 62 H 08/03/22 12:03: POC Glucose 327 H* I & O for Labs for Last 24 Hours: Intake & Output 07/31/22 08/01/22 08/02/22 08/03/22 23:59 23:59 23:59 23:59 Intake Total 1231 / 1231 220 / 220 1740 / 1740 760 / 760 Output Total 400 / 400 725 / 975 1450 / 1450 1380 / 1380 Balance 831 / 831 -505 / -755 290 / 290 -620 / -620 Weight 84.567 kg 84.17 kg 84.17 kg 85.457 kg Microbiology Reports for the Last 24 Hours: Microbiology 08/01/22 08:04 Foot,Left - Left Gram Stain - Final 08/01/22 08:04 Foot,Left - Left Surgical Biopsy Culture - Preliminary 08/01/22 08:04 Toe,Left Second Gram Stain - Final 08/01/22 08:04 Toe,Left Second Wound Culture - Preliminary 08/01/22 08:04 Foot,Left - Left Bone Culture - Preliminary The patient's infection will respond to the chosen ABx?: Yes (EMPIRIC THERAPY) Is the patient receiving the right drug, dose, and route?: Yes Could a more targeted ABx be ordered?: No (CULTURES PENDING)
[2022-08-03 16:00] VITALS: BP 106/53; PULSE 66; RESP 16; TEMP 36.9; O2SAT 93
--- NOTE | 2022-08-03 16:39 | PC.NURSE ---
Patient VSS, up to chair for all meals, family at bedside most of the day. B/L diminished, dressing changed on left foot, no s/s of acute distress noted, call light within reach, bed at lowest level for safety.
[2022-08-03 18:19] LABS: POC Glucose,Bedside 278 (70-110)
[2022-08-03 19:57] VITALS: BP 121/56; PULSE 70; RESP 20; TEMP 37.2; O2SAT 93
[2022-08-03 20:00] VITALS: O2SAT 93
[2022-08-03 22:09] LABS: POC Glucose,Bedside 250 (70-110)
[2022-08-04 04:00] VITALS: BP 131/60; PULSE 74; RESP 17; TEMP 36.8; O2SAT 93
--- NOTE | 2022-08-04 04:48 | PC.NURSE ---
pt has rested some this shift, no complaints of pain or SOA this shift, pt encouraged to use IS, dressing in place to LLE, no drainage noted, remains on room air
[2022-08-04 06:25] LABS: POC Glucose,Bedside 213 (70-110)
[2022-08-04 07:07] LABS: Basophils # 0.1 K/mm3 (0-0.2); Basophils % 0.8 % (0.1-2.0); Eosinophils # 0.4 K/mm3 (0.0-0.4); Eosinophils % 4.7 % (0.1-12.0); Hematocrit 35.5 % (42.0-52.0); Hemoglobin 11.8 g/dL (14.1-18.0); Lymphocytes # 1.2 K/mm3 (0.7-4.5); Lymphocytes % 13.6 % (10-50); Mean Corpuscular HGB Conc 33.4 g/dL (31.8-35.4); Mean Corpuscular Hemoglobin 29.9 pg (27.0-31.2); Mean Corpuscular Volume 89.4 fl (80-94); Mean Platelet Volume 7.7 fl (7.4-10.4); Monocytes # 0.8 K/mm3 (0.1-1.0); Monocytes % 9.4 % (1.7-9.3); Neutrophils # 6.1 K/mm3 (1.8-7.8); Neutrophils % 71.6 % (37.0-80.0); Platelet Count 235 K/mm3 (142-424); Red Blood Count 3.96 M/mm3 (4.60-6.20); Red Cell Distribution Width 14.4 % (11.5-17.5); White Blood Count 8.5 K/mm3 (4.8-10.8)
[2022-08-04 07:11] LABS: Chloride 102 mmol/L (98-107); Potassium 3.9 mmoL/L (3.5-5.1); Sodium 137 mmol/L (136-145)
[2022-08-04 07:13] LABS: Blood Urea Nitrogen 17 mg/dl (9-20); Creatinine Clearance Estimated 71 mL/min (50-200); Estimated Glomerular Filt Rate 130 ml/min (>60); GFR (African American) 157 ML/MIN (>60)
[2022-08-04 07:14] LABS: Alanine Aminotransferase 22 U/L (12-78); Albumin Level 3.1 g/dl (3.5-5.0); Albumin/Globulin Ratio 1.2 (1.1-1.8); Alkaline Phosphatase 127 U/L (38-126); Anion Gap 10.9 mEq/L (5-15); Aspartate Amino Transferase 21 U/L (17-59); Bilirubin,Total 0.4 mg/dl (0.2-1.3); Calcium 8.4 mg/dl (8.4-10.2); Carbon Dioxide 28 mmol/L (22.0-30.0); Globulin 2.5 g/dL (1.3-3.2); Glucose 222 mg/dl (74-100); Total Protein,Serum 5.6 g/dl (6.3-8.2)
[2022-08-04 07:20] LABS: C-Reactive Protein 41.3 mg/L (0-4)
[2022-08-04 07:27] LABS: Erythrocyte Sedimentation Rate 64 mm/hr (0-20)
[2022-08-04 08:00] VITALS: BP 126/56; PULSE 78; RESP 14; TEMP 36.8; O2SAT 95; O2SAT 96
--- NOTE | 2022-08-04 08:13 | EXP.ORTH.PN ---
Subjective *Date: 08/04/22 *Time: 11:01 Interval history: Patient is resting comfortably in the chair at the bedside. He denies any pain. Dressing is clean dry and intact. Ortho Exam (Inpt) Vital signs and Labs for Last 24 Hours: Temp Pulse Resp BP Pulse Ox 98.3 F 74 17 131/60 93 L 08/04/22 04:00 08/04/22 04:00 08/04/22 04:00 08/04/22 04:00 08/04/22 04:00 Laboratory Results - last 24 hr 08/03/22 06:57: WBC 9.3, RBC 4.13 L, Hgb 12.2 L, Hct 36.9 L, MCV 89.3, MCH 29.4, MCHC 32.9, RDW 14.5, Plt Count 243, MPV 7.5, Neut % (Auto) 74.9, Lymph % (Auto) 11.3, [place] % (Auto) 9.2, Eos % (Auto) 3.8, Baso % (Auto) 0.9, Neut # (Auto) 6.9, Lymph # (Auto) 1.1, [place] # (Auto) 0.9, Eos # (Auto) 0.4, Baso # (Auto) 0.1 08/03/22 06:57: ESR 62 H 08/03/22 12:03: POC Glucose 327 H* 08/03/22 17:20: POC Glucose 278 H 08/03/22 21:07: POC Glucose 250 H 08/04/22 06:15: POC Glucose 213 H 08/04/22 06:47: WBC 8.5, RBC 3.96 L, Hgb 11.8 L, Hct 35.5 L, MCV 89.4, MCH 29.9, MCHC 33.4, RDW 14.4, Plt Count 235, MPV 7.7, Neut % (Auto) 71.6, Lymph % (Auto) 13.6, [place] % (Auto) 9.4 H, Eos % (Auto) 4.7, Baso % (Auto) 0.8, Neut # (Auto) 6.1, Lymph # (Auto) 1.2, [place] # (Auto) 0.8, Eos # (Auto) 0.4, Baso # (Auto) 0.1 08/04/22 06:47: Sodium 137, Potassium 3.9, Chloride 102, Carbon Dioxide 28, Anion Gap 10.9, BUN 17, Creatinine 0.60 L, Estimated Creat Clear 71, Estimated GFR 130, Est GFR ( Amer) 157, Glucose 222 H, Calcium 8.4, Total Bilirubin 0.4, AST 21, ALT 22, Alkaline Phosphatase 127 H, C-Reactive Protein 41.3 H, Total Protein 5.6 L, Albumin 3.1 L, Globulin 2.5, Albumin/Globulin Ratio 1.2 08/04/22 06:47: ESR 64 H I & O for Labs for Last 24 Hours: Intake & Output 08/01/22 08/02/22 08/03/22 08/04/22 11:59 11:59 11:59 11:59 Intake Total 981 / 981 1140 / 1140 1480 / 1480 900 / 900 Output Total 725 / 725 1200 / 1200 2030 / 2030 800 / 800 Balance 256 / 256 -60 / -60 -550 / -550 100 / 100 Weight 185 lb 9.009 oz 185 lb 9.009 oz 188 lb 6.4 oz Microbiology Reports for the Last 24 Hours: Microbiology 08/01/22 08:04 Foot,Left - Left Gram Stain - Final 08/01/22 08:04 Foot,Left - Left Surgical Biopsy Culture - Preliminary 08/01/22 08:04 Toe,Left Second Gram Stain - Final 08/01/22 08:04 Toe,Left Second Wound Culture - Preliminary 08/01/22 08:04 Foot,Left - Left Bone Culture - Preliminary Constitutional: Present no acute distress Head: Present normocephalic Neck: Present normal inspection Respiratory: Present able to speak in complete sentences Cardiac: Present pedal pulses present GI: Present soft Extremities: Present full ROM and edema Skin: Present intact and erythema (left forefoot) Comment:: Sutures clean dry and intact to left 2-3rd toe amp site. Some edema, erythema. Some bruising bluish discoloration to incision site. No purulence, drainage or malodor. Neuro: Present Motor Function Intact, oriented x 3 and moves all extremities Feet/Toes: left: amputation (L 1-3rd toes), left: hammer toe, left: nail abnormalities (L 4-5th toe), left: swelling (L forefoot) and left: wound (sutures to amp site) Assessment and Plan *Assessment and plan (1) Edema of left lower extremity: Status: Acute Category: Medical Code(s): R60.0 - Localized edema (2) Cellulitis of toe of left foot: Status: Resolved Category: Medical Code(s): L03.032 - Cellulitis of left toe (3) Status post foot surgery: Status: Acute Category: Surgical Code(s): Z98.890 - Other specified postprocedural states (4) 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
--- NOTE | 2022-08-04 08:16 | EXP.ACUTE.PN ---
Subjective *Date: 08/04/22 *Time: 08:20 Interval history: Patient is doing well, sitting up in his chair and eating breakfast. Has no complaints of pain. Podiatry has just wrapped his wound I discussed case with podiatry as well as with physical therapy who stated that he is doing well but still could use some ongoing physical therapy. Notes from the last couple of days reviewed. Medical Exam Vital signs and Labs for Last 24 Hours: Vital Signs Temp Pulse Resp BP Pulse Ox 08/04/22 04:00 98.3 F 74 17 131/60 93 L 08/03/22 20:00 93 L 08/03/22 19:57 98.9 F 70 20 121/56 L 93 L 08/03/22 16:00 98.5 F 66 16 106/53 L 93 L Intake and Output 08/03/22 08/04/22 08/04/22 19:59 03:59 11:59 Intake Total 900 / 900 Output Total 400 / 800 300 / 800 100 / 800 Balance 500 / 100 -300 / 100 -100 / 100 Intake: Intake, Oral Amount 600 / 600 Intake, Total IV Amount 300 / 300 Vancomycin/Water For Inj (Peg) 300 / 300 1.5 gm In 300 ml @ 175 mls/hr IV Q12H [facility] Rx#:[id number] Output: Output, Urine Amount 400 / 800 300 / 800 100 / 800 Laboratory Results - last 24 hr 08/03/22 06:57: WBC 9.3, RBC 4.13 L, Hgb 12.2 L, Hct 36.9 L, MCV 89.3, MCH 29.4, MCHC 32.9, RDW 14.5, Plt Count 243, MPV 7.5, Neut % (Auto) 74.9, Lymph % (Auto) 11.3, [place] % (Auto) 9.2, Eos % (Auto) 3.8, Baso % (Auto) 0.9, Neut # (Auto) 6.9, Lymph # (Auto) 1.1, [place] # (Auto) 0.9, Eos # (Auto) 0.4, Baso # (Auto) 0.1 08/03/22 06:57: ESR 62 H 08/03/22 12:03: POC Glucose 327 H* 08/03/22 17:20: POC Glucose 278 H 08/03/22 21:07: POC Glucose 250 H 08/04/22 06:15: POC Glucose 213 H 08/04/22 06:47: WBC 8.5, RBC 3.96 L, Hgb 11.8 L, Hct 35.5 L, MCV 89.4, MCH 29.9, MCHC 33.4, RDW 14.4, Plt Count 235, MPV 7.7, Neut % (Auto) 71.6, Lymph % (Auto) 13.6, [place] % (Auto) 9.4 H, Eos % (Auto) 4.7, Baso % (Auto) 0.8, Neut # (Auto) 6.1, Lymph # (Auto) 1.2, [place] # (Auto) 0.8, Eos # (Auto) 0.4, Baso # (Auto) 0.1 08/04/22 06:47: Sodium 137, Potassium 3.9, Chloride 102, Carbon Dioxide 28, Anion Gap 10.9, BUN 17, Creatinine 0.60 L, Estimated Creat Clear 71, Estimated GFR 130, Est GFR ( Amer) 157, Glucose 222 H, Calcium 8.4, Total Bilirubin 0.4, AST 21, ALT 22, Alkaline Phosphatase 127 H, C-Reactive Protein 41.3 H, Total Protein 5.6 L, Albumin 3.1 L, Globulin 2.5, Albumin/Globulin Ratio 1.2 08/04/22 06:47: ESR 64 H I & O for Labs for Last 24 Hours: Intake & Output 08/01/22 08/02/22 08/03/22 08/04/22 11:59 11:59 11:59 11:59 Intake Total 981 / 981 1140 / 1140 1480 / 1480 900 / 900 Output Total 725 / 725 1200 / 1200 2029 / 2029 800 / 800 Balance 256 / 256 -60 / -60 -550 / -550 100 / 100 Weight 185 lb 9.009 oz 185 lb 9.009 oz 188 lb 6.4 oz Microbiology Reports for the Last 24 Hours: Microbiology 08/01/22 08:04 Toe,Left Second Gram Stain - Final 08/01/22 08:04 Toe,Left Second Wound Culture - Preliminary 08/01/22 08:04 Foot,Left - Left Bone Culture - Preliminary 08/01/22 08:04 Foot,Left - Left Gram Stain - Final 08/01/22 08:04 Foot,Left - Left Surgical Biopsy Culture - Preliminary Comment:: Patient is alert, oriented x2, little fuzzy about the date. Good air movement in his chest, heart rate regular. Abdomen soft. Right foot wrapped per podiatry. Left side unchanged. Neurologically intact. Assessment and Plan *Assessment and plan (1) Diabetic foot ulcer: Status: Acute Qualifiers: Diabetes mellitus type: type 2 Diabetic foot ulcer location: toe Laterality: left Non-pressure ulcer stage: with necrosis of bone Qualified Code(s): E11.621 - Type 2 diabetes mellitus with foot ulcer; L97.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cified foot with unspecified severity (2) Peripheral arterial disease: Status: Acu
--- NOTE | 2022-08-04 10:09 | EXP.CARD.PN ---
Subjective Subjective Date: 08/04/22 Time: 09:30 Principal diagnosis: PAD, OM of L toe Interval history: This is an 82-year-old white gentleman who presented to the emergency department with an infected toe on his left foot. Patient was found to have osteomyelitis. The patient did undergo runoff and he had successful lithotripsy followed by drug-coated balloon angioplasty to the heavily calcified left popliteal artery. The patient will need to be on Xarelto and aspirin for dual antiplatelet therapy. This morning he denies any chest pain or pressure. He denies any shortness of breath or edema. He denies any fever, chills, nausea, vomiting, diarrhea, PND or orthopnea. His left foot still remains in a dressing. He denies any pain at the surgical site. Exam Data for Last 24 hours Vital signs and Labs for Last 24 Hours: Temp Pulse Resp BP Pulse Ox 98.2 F 78 14 126/56 L 95 08/04/22 08:00 08/04/22 08:00 08/04/22 08:00 08/04/22 08:00 08/04/22 08:00 Laboratory Results - last 24 hr 08/03/22 06:57: ESR 62 H 08/03/22 12:03: POC Glucose 327 H* 08/03/22 17:20: POC Glucose 278 H 08/03/22 21:07: POC Glucose 250 H 08/04/22 06:15: POC Glucose 213 H 08/04/22 06:47: WBC 8.5, RBC 3.96 L, Hgb 11.8 L, Hct 35.5 L, MCV 89.4, MCH 29.9, MCHC 33.4, RDW 14.4, Plt Count 235, MPV 7.7, Neut % (Auto) 71.6, Lymph % (Auto) 13.6, [place] % (Auto) 9.4 H, Eos % (Auto) 4.7, Baso % (Auto) 0.8, Neut # (Auto) 6.1, Lymph # (Auto) 1.2, [place] # (Auto) 0.8, Eos # (Auto) 0.4, Baso # (Auto) 0.1 08/04/22 06:47: Sodium 137, Potassium 3.9, Chloride 102, Carbon Dioxide 28, Anion Gap 10.9, BUN 17, Creatinine 0.60 L, Estimated Creat Clear 71, Estimated GFR 130, Est GFR ( Amer) 157, Glucose 222 H, Calcium 8.4, Total Bilirubin 0.4, AST 21, ALT 22, Alkaline Phosphatase 127 H, C-Reactive Protein 41.3 H, Total Protein 5.6 L, Albumin 3.1 L, Globulin 2.5, Albumin/Globulin Ratio 1.2 08/04/22 06:47: ESR 64 H I & O for Last 24 hours: Intake & Output 08/01/22 08/02/22 08/03/22 08/04/22 23:59 23:59 23:59 23:59 Intake Total 220 / 220 1740 / 1740 1660 / 1660 480 / 480 Output Total 725 / 975 1450 / 1450 1780 / 1780 400 / 400 Balance -505 / -755 290 / 290 -120 / -120 80 / 80 Weight 185 lb 9.009 oz 185 lb 9.009 oz 188 lb 6.4 oz Microbiology Reports for the Last 24 Hours: Microbiology 08/01/22 08:04 Foot,Left - Left Gram Stain - Final 08/01/22 08:04 Foot,Left - Left Surgical Biopsy Culture - Preliminary 08/01/22 08:04 Toe,Left Second Gram Stain - Final 08/01/22 08:04 Toe,Left Second Wound Culture - Preliminary 08/01/22 08:04 Foot,Left - Left Bone Culture - Preliminary Radiology Reports for the Last 24 Hours: CTA of the abdomen/femoral runoff: Significantly limited evaluation of the distal lower legs bilaterally due to opacified veins.? Catheter directed angiography may be necessary to evaluate the lower leg arterial structures.? ? Multifocal stenoses of the left posterior tibial artery.? Occlusion of the mid to distal left posterior tibial artery cannot be excluded.? Moderate stenosis of the mid to distal right SFA, approximately 60%.? ? Multiple mild stenoses of the left SFA. Constitutional Constitutional: no acute distress and average body habitus *Routine HEENT Exam Head: Present normocephalic and atraumatic ENT: Present mucous membranes moist *Routine Neck Exam Neck: Present supple, full ROM and normal carotid upstroke; Absent JVD, carotid bruit or lymphadenopathy *Routine Respiratory Exam Respiratory: Present CTA bilaterally, normal respiratory effort, able to speak in complete sentences and symmetric chest movement *Routine Cardiovascular Exam Cardiovascular: Present RRR, Normal S1 and Normal S2; Absent murmur or gallop *Routine Abdominal Exam Abdominal: Present soft and normoactive bowel sounds; Absent tenderness, distended or organomegaly *Routine Extremities Exam Extremities: Present edema (Trace edema to left lower extremity), full ROM, pul
[2022-08-04 12:13] LABS: POC Glucose,Bedside 292 (70-110)
[2022-08-04 16:00] VITALS: BP 124/52; PULSE 68; RESP 16; TEMP 36.8; O2SAT 96
[2022-08-04 17:02] LABS: POC Glucose,Bedside 272 (70-110)
--- NOTE | 2022-08-04 18:25 | PC.NURSE ---
Patient VSS, FSBS 270-325, recvd new v.o. from provider for High Intensity Insulin sliding scale. Dressing changed by surgeon this AM, Family at bedside throughout day. No acute distress noted.
[2022-08-04 20:00] VITALS: BP 99/59; PULSE 64; RESP 18; TEMP 36.7; O2SAT 95
[2022-08-04 20:39] LABS: POC Glucose,Bedside 287 (70-110)
[2022-08-05 04:00] VITALS: BP 118/57; PULSE 69; RESP 18; TEMP 36.8; O2SAT 92
[2022-08-05 05:00] VITALS: BMI 25.2
[2022-08-05 05:31] LABS: POC Glucose,Bedside 214 (70-110)
--- NOTE | 2022-08-05 06:28 | PC.NURSE ---
NO ACUTE CHANGE SINCE PREVIOUS ASSESSMENT. LUNG SOUNDS ARE CLEAR. VSS. PT HAS RESTED WELL. HAS BEEN AMBULATING INDEPENDENTLY IN ROOM. NO C/O PAIN THIS SHIFT. CALL KIRBY WITHIN REACH.
[2022-08-05 08:00] VITALS: BP 118/49; PULSE 88; RESP 18; TEMP 36.4; O2SAT 96
--- NOTE | 2022-08-05 08:07 | EXP.DC.SUM ---
General Admission date:: 07/30/22 Discharge date: 08/05/22 HPI HPI HPI: 82-year-old male with diabetes, history of small vessel disease in his feet and a history of osteomyelitis of the left great toe with amputation several months ago.? He has been doing well but a couple weeks ago he noticed increasing redness in the second toe and is been following podiatry.? He was back in the clinic today for follow-up of his CT scan which unfortunately showed? for? osteomyelitis of the second toe of the left foot.? Given his significant risk for sepsis, impaired circulation and neurologic issues in his feet and high risk of progression he was admitted to hospital for IV antibiotics and further evaluation for podiatry regarding surgical care. Hospital Course Hospital Course Hospital Course: Patient was admitted. Given his significant medical problems, osteomyelitis, difficult to control diabetes, established infection requiring IV antibiotics and evidence of peripheral limb ischemia he required inpatient stay. He was treated with IV antibiotics based on previous culture results and after cardiology consultation was taken for amputation of his left great toe. This was successful. Postoperative runoff showed need for stenting and a stent was placed per cardiology. They recommended ongoing Lovenox with transition to p.o. anticoagulation on discharge. PT evaluated the patient and felt that he would do reasonably well with skilled care evaluation. He needs another week of IV antibiotics to finish up a total of 2 weeks. Gram stain from wound culture is showing gram-positive cocci so we will cover for staph with vancomycin and gram-negative coverage with ceftriaxone. Currently he is dosed with vancomycin 1.5 g every 12 hours and ceftriaxone 1 g every 24 hours. He had a midline placed in the left antecubital fossa with no complications. We will follow him up at the [facility]. Exam Data for Last 24 hours Vital signs and Labs for Last 24 Hours: Temp Pulse Resp BP Pulse Ox 98.3 F 69 18 118/57 L 92 L 08/05/22 04:00 08/05/22 04:00 08/05/22 04:00 08/05/22 04:00 08/05/22 04:00 Laboratory Results - last 24 hr 08/04/22 12:03: POC Glucose 292 H 08/04/22 16:55: POC Glucose 272 H 08/04/22 19:59: POC Glucose 287 H 08/05/22 05:19: POC Glucose 214 H I & O for Last 24 hours: Intake & Output 08/02/22 08/03/22 08/04/22 08/05/22 11:59 11:59 11:59 11:59 Intake Total 1140 / 1140 1480 / 1480 1380 / 1380 1190 / 1190 Output Total 1200 / 1200 2029 / 2029 800 / 800 0 / 0 Balance -60 / -60 -550 / -550 580 / 580 1190 / 1190 Weight 185 lb 9.009 oz 188 lb 6.4 oz 186 lb 6.484 oz Microbiology Reports for the Last 24 Hours: Microbiology 07/30/22 20:20 Blood Blood Culture - Final NO GROWTH AFTER 5 DAYS 07/30/22 20:20 Blood Blood Culture - Final NO GROWTH AFTER 5 DAYS 08/01/22 08:04 Foot,Left - Left Gram Stain - Final 08/01/22 08:04 Foot,Left - Left Surgical Biopsy Culture - Preliminary 08/01/22 08:04 Toe,Left Second Gram Stain - Final 08/01/22 08:04 Toe,Left Second Wound Culture - Preliminary 08/01/22 08:04 Foot,Left - Left Bone Culture - Preliminary *Routine Extremities Exam Comments: Left foot bandaged. Podiatry in room about ready to change dressing. Right foot clear. Diminished pulses. Upper extremities normal and no edema. Results Data Completed and Pending Labs on day of discharge: Labs from last 24 hours 08/05/22 08/04/22 08/04/22 05:19 19:59 16:55 POC Glucose 214 H 287 H 272 H 08/04/22 12:03 POC Glucose 292 H Preliminary micro results at discharge 08/01/22 08:04 Surgical Biopsy Culture - Preliminary Foot,Left - Left 08/01/22 08:04 Wound Culture - Preliminary Toe,Left Second 08/01/22 08:04 Bone Culture - Preliminary Foot,Left - Left DS: Diagnosis Discharge Diagnosis (1) Emiliano
--- NOTE | 2022-08-05 08:12 | EXP.ORTH.PN ---
Subjective *Date: 08/05/22 *Time: 08:12 Interval history: Patient is resting comfortably in the chair at the bedside eating. He denies any pain. Dressing is clean dry and intact. Ortho Exam (Inpt) Vital signs and Labs for Last 24 Hours: Temp Pulse Resp BP Pulse Ox 98.3 F 69 18 118/57 L 92 L 08/05/22 04:00 08/05/22 04:00 08/05/22 04:00 08/05/22 04:00 08/05/22 04:00 Laboratory Results - last 24 hr 08/04/22 12:03: POC Glucose 292 H 08/04/22 16:55: POC Glucose 272 H 08/04/22 19:59: POC Glucose 287 H 08/05/22 05:19: POC Glucose 214 H I & O for Labs for Last 24 Hours: Intake & Output 08/02/22 08/03/22 08/04/22 08/05/22 11:59 11:59 11:59 11:59 Intake Total 1140 / 1140 1480 / 1480 1380 / 1380 1190 / 1190 Output Total 1200 / 1200 2030 / 2030 800 / 800 0 / 0 Balance -60 / -60 -550 / -550 580 / 580 1190 / 1190 Weight 185 lb 9.009 oz 188 lb 6.4 oz 186 lb 6.484 oz Microbiology Reports for the Last 24 Hours: Microbiology 07/30/22 20:20 Blood Blood Culture - Final NO GROWTH AFTER 5 DAYS 07/30/22 20:20 Blood Blood Culture - Final NO GROWTH AFTER 5 DAYS 08/01/22 08:04 Foot,Left - Left Gram Stain - Final 08/01/22 08:04 Foot,Left - Left Surgical Biopsy Culture - Preliminary 08/01/22 08:04 Toe,Left Second Gram Stain - Final 08/01/22 08:04 Toe,Left Second Wound Culture - Preliminary 08/01/22 08:04 Foot,Left - Left Bone Culture - Preliminary Constitutional: Present no acute distress Head: Present normocephalic Neck: Present normal inspection Respiratory: Present able to speak in complete sentences Cardiac: Present pedal pulses present GI: Present soft Extremities: Present full ROM and edema Skin: Present intact and erythema (left forefoot) Comment:: Sutures clean dry and intact to left 2-3rd toe amp site. Some edema, erythema unchanged from yesterday. Some bruising bluish discoloration to incision site and medial 4th toe. No purulence, drainage or malodor. Neuro: Present Motor Function Intact, oriented x 3 and moves all extremities Feet/Toes: left: amputation (L 1-3rd toes), left: hammer toe, left: nail abnormalities (L 4-5th toe), left: swelling (L forefoot) and left: wound (sutures to amp site) Assessment and Plan *Assessment and plan (1) Edema of left lower extremity: Status: Acute Category: Medical Code(s): R60.0 - Localized edema (2) Cellulitis of toe of left foot: Status: Resolved Category: Medical Code(s): L03.032 - Cellulitis of left toe (3) Status post foot surgery: Status: Acute Category: Surgical Code(s): Z98.890 - Other specified postprocedural states (4) 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 Intra-op Specimens: Left 2nd toe wound culture, Left 2-3rd toe tissue culture, Left 2-3rd toe bone culture, Left 2-3rd toe bone pathology pending 08/05/22, POD #4 -dressing removed -some edema, erythema, bluish bruising/discoloration noted to left forefoot and 4th toe -likely reactive from run-off and re-vascularization, will monitor -sutures intact -betadine soaked gauze, dry sterile dressing applied -cultures reviewed, still pending -continue IV abx x 2 weeks total SNF Orders: -Plan for daily dressing changes: betadine soaked gauze to surgical site, dry gauze, pankaj, [place] -PWB to left heel in post op shoe (or short fx boot) with walker -Midline left antecubital fossa -Plan for 2 weeks IV abx per Dr Grey: Ceftriaxone 1g q24h, Vanco 1.5g q12h -F/u with Podiatry out patient in one week: 08/12/22
[2022-08-05 08:24] LABS: Coronavirus 19, PCR Not Detected (NotDetected); Influenza A, PCR Not Detected (NotDetected); Influenza B, PCR Not Detected (NotDetected)
[2022-08-05 08:42] VITALS: BP 103/45; PULSE 85; RESP 20; O2SAT 94
--- NOTE | 2022-08-05 10:57 | PC.NURSE ---
Called report to RYAN Lui at [facility]
--- NOTE | 2022-08-06 11:48 | CARE MANAGER ---
Spoke with staff at [facility] and they state patient is doing very well and deny any questions or concerns. RYAN Mckeon
== END 2022-08-05 11:25 | DRG 253 ==
LOC: 2ND 17:46
PROVIDERS: Internal Medicine; Nurse Practitioner Family; Admitting Provider Internal Medicine Adolescent Medicine; PCP Internal Medicine Adolescent Medicine; Referring Provider Podiatrist; Visit Provider Internal Medicine Adolescent Medicine
PROC: 0Y6S0Z1 Detachment at Left 2nd Toe, High, Open Approach (ICD-10-PCS; principal; 2022-08-01 07:30)
PROC: 04FN3ZZ Fragmentation of Left Popliteal Artery, Percutaneous Approach (ICD-10-PCS; principal; 2022-08-01 11:30)
DX: L03.116 Cellulitis of left lower limb (principal); M86.172 Other acute osteomyelitis, left ankle and foot; I70.213 Atherosclerosis of native arteries of extremities with intermittent claudication, bilateral legs; E11.65 Type 2 diabetes mellitus with hyperglycemia; E11.51 Type 2 diabetes mellitus with diabetic peripheral angiopathy without gangrene; Z79.4 Long term (current) use of insulin; Z87.891 Personal history of nicotine dependence; E11.69 Type 2 diabetes mellitus with other specified complication; E11.621 Type 2 diabetes mellitus with foot ulcer; E78.5 Hyperlipidemia, unspecified; L03.032 Cellulitis of left toe
CPT/HCPCS: 28810 ×2; 36410; 36415; 36569; 73630; 73700; 75635; 80048; 80053; 80061; 80076; 80202; 82962; 83605; 85025; 85347; 85651; 86140; 87040; 87070; 87075; 87077; 87186; 87205; 88304; 88305; 88311; 93005; 93306; 93923; 97110; 97116; 97162; 97530; 99152; 99153; C1725; C1751; C1760; C1766; C1769; C1894; C9765; C9803; J0696; J1644; Q9967; U0003; U0005

== ENCOUNTER → 2022-08-21 14:13 | Outpatient (CLI) | payer MEDICARE, SELFPAY ==
[2022-08-21 14:37] LABS: Basophils # 0.1 K/mm3 (0-0.2); Basophils % 1.5 % (0.1-2.0); Eosinophils # 0.5 K/mm3 (0.0-0.4); Eosinophils % 5.6 % (0.1-12.0); Hematocrit 41.7 % (42.0-52.0); Hemoglobin 12.7 g/dL (14.1-18.0); Lymphocytes # 1.5 K/mm3 (0.7-4.5); Mean Corpuscular HGB Conc 30.4 g/dL (31.8-35.4); Mean Corpuscular Hemoglobin 28.6 pg (27.0-31.2); Mean Corpuscular Volume 94.2 fl (80-94); Mean Platelet Volume 6.6 fl (7.4-10.4); Monocytes # 0.8 K/mm3 (0.1-1.0); Monocytes % 9.3 % (1.7-9.3); Neutrophils # 5.9 K/mm3 (1.8-7.8); Neutrophils % 66.7 % (37.0-80.0); Platelet Count 267 K/mm3 (142-424); Red Blood Count 4.43 M/mm3 (4.60-6.20); Red Cell Distribution Width 15.8 % (11.5-17.5); White Blood Count 8.9 K/mm3 (4.8-10.8)
[2022-08-21 15:38] LABS: Erythrocyte Sedimentation Rate 79 mm/hr (0-20)
[2022-08-21 15:40] LABS: Alanine Aminotransferase 30 U/L (12-78); Albumin/Globulin Ratio 1.5 (1.1-1.8); Alkaline Phosphatase 163 U/L (38-126); Anion Gap 14.4 mEq/L (5-15); Aspartate Amino Transferase 23 U/L (17-59); Bilirubin,Total 0.7 mg/dl (0.2-1.3); Blood Urea Nitrogen 27 mg/dl (9-20); Calcium 9.5 mg/dl (8.4-10.2); Carbon Dioxide 34 mmol/L (22.0-30.0); Chloride 95 mmol/L (98-107); Estimated Glomerular Filt Rate 72 ml/min (>60); GFR (African American) 87 ML/MIN (>60); Globulin 2.6 g/dL (1.3-3.2); Glucose 188 mg/dl (74-100); Potassium 4.4 mmoL/L (3.5-5.1); Sodium 139 mmol/L (136-145); Total Protein,Serum 6.6 g/dl (6.3-8.2)
[2022-08-21 17:30] LABS: Hemoglobin A1C 7.7 % (4.0-6.0)
== END ==
PROVIDERS: Nurse Practitioner Family; PCP Internal Medicine Adolescent Medicine; Visit Provider Podiatrist
DX: M86.172 Other acute osteomyelitis, left ankle and foot (principal); Z98.890 Other specified postprocedural states; E11.621 Type 2 diabetes mellitus with foot ulcer; L97.502 Non-pressure chronic ulcer of other part of unspecified foot with fat layer exposed; Z79.4 Long term (current) use of insulin
CPT/HCPCS: 36415; 80053; 83036; 85025; 85651; 86140

== ENCOUNTER 2022-09-02 11:23 | Outpatient (CLI) | payer MEDICARE, SELFPAY ==
[2022-09-02 13:14] LABS: Basophils # 0.1 K/mm3 (0-0.2); Eosinophils # 0.5 K/mm3 (0.0-0.4); Eosinophils % 5.2 % (0.1-12.0); Hematocrit 40.7 % (42.0-52.0); Hemoglobin 12.8 g/dL (14.1-18.0); Lymphocytes # 1.1 K/mm3 (0.7-4.5); Lymphocytes % 12.7 % (10-50); Mean Corpuscular HGB Conc 31.5 g/dL (31.8-35.4); Mean Corpuscular Hemoglobin 29.6 pg (27.0-31.2); Mean Corpuscular Volume 94.2 fl (80-94); Mean Platelet Volume 7.9 fl (7.4-10.4); Monocytes # 0.7 K/mm3 (0.1-1.0); Monocytes % 8.6 % (1.7-9.3); Neutrophils # 6.2 K/mm3 (1.8-7.8); Neutrophils % 72.4 % (37.0-80.0); Platelet Count 216 K/mm3 (142-424); Red Blood Count 4.33 M/mm3 (4.60-6.20); Red Cell Distribution Width 15.5 % (11.5-17.5); White Blood Count 8.6 K/mm3 (4.8-10.8)
--- NOTE | 2022-09-02 13:38 | PC.NURSE ---
PT ARRIVED TO GET MIDLINE REMOVED; PT HAD FALLEN THE OTHER DAY AND DRESSING WAS COMING OFF; I REDRESSED THE ARM TILL THEY COULD GET TO MD LATER
[2022-09-02 13:42] LABS: Chloride 97 mmol/L (98-107); Sodium 135 mmol/L (136-145)
[2022-09-02 13:43] LABS: Potassium 4.3 mmoL/L (3.5-5.1)
[2022-09-02 13:44] LABS: Erythrocyte Sedimentation Rate 21 mm/hr (0-20)
[2022-09-02 13:45] LABS: Alanine Aminotransferase 24 U/L (12-78); Alkaline Phosphatase 124 U/L (38-126); Aspartate Amino Transferase 19 U/L (17-59); Bilirubin,Total 0.5 mg/dl (0.2-1.3); Blood Urea Nitrogen 22 mg/dl (9-20); Calcium 9.5 mg/dl (8.4-10.2); Carbon Dioxide 32 mmol/L (22.0-30.0); Estimated Glomerular Filt Rate 93 ml/min (>60); GFR (African American) 113 ML/MIN (>60); Glucose 266 mg/dl (74-100)
[2022-09-02 13:46] LABS: Albumin Level 3.7 g/dl (3.5-5.0); Albumin/Globulin Ratio 1.8 (1.1-1.8); Anion Gap 10.3 mEq/L (5-15); Globulin 2.1 g/dL (1.3-3.2); Total Protein,Serum 5.8 g/dl (6.3-8.2)
[2022-09-02 14:06] LABS: C-Reactive Protein 7.4 mg/L (0-4)
== END 2022-09-02 13:30 | disposition home or self-care (01) ==
PROVIDERS: PCP Internal Medicine Adolescent Medicine; Visit Provider Nurse Practitioner Family
DX: M86.172 Other acute osteomyelitis, left ankle and foot (principal); E11.621 Type 2 diabetes mellitus with foot ulcer; L97.509 Non-pressure chronic ulcer of other part of unspecified foot with unspecified severity; L03.032 Cellulitis of left toe; Z79.4 Long term (current) use of insulin
CPT/HCPCS: 36415; 80053; 85025; 85651; 86140; G0463

== ENCOUNTER → 2023-03-13 10:57 | Outpatient (CLI) | payer MEDICARE, SELFPAY ==
--- NOTE | 2023-03-13 | XR_ITS ---
FINAL REPORT CLINICAL HISTORY: left rib pain FINDINGS: RIBS UNILATERAL Four views of the left ribs were obtained. There is no acute displaced fracture identified. No soft tissue abnormality is identified. IMPRESSION: No acute process. Reviewed, Interpreted and Dictated by Saulo Granado MD Transcribed by Cynthia Ocasio Authenticated and [facility]
--- NOTE | 2023-03-13 11:03 | XR_ITS ---
FINAL REPORT CLINICAL HISTORY: FALL FINDINGS: LEFT WRIST Three views show no evidence of an acute, displaced fracture or dislocation of the visualized bony architecture. The joint spaces appear normal. IMPRESSION: Unremarkable exam. Reviewed, Interpreted and Dictated by Saulo Granado MD Transcribed by Cynthia Ocasio Authenticated and [facility]
--- NOTE | 2023-03-13 11:04 | XR_ITS ---
FINAL REPORT CLINICAL HISTORY: FALL FINDINGS: LEFT HAND Three views of the left hand were obtained. There are moderate degenerative changes of the 1st carpometacarpal joint. There is a mildly comminuted spiral fracture of the 5th metacarpal which is mildly displaced. 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 IMPRESSION: Mildly comminuted spiral fracture of the 5th metacarpal. Reviewed, Interpreted and Dictated by Saulo Granado MD Transcribed by Cynthia Ocasio Authenticated and [facility]
--- NOTE | 2023-03-13 11:05 | XR_ITS ---
FINAL REPORT CLINICAL HISTORY: FALL right rib pain FINDINGS: A single view of the chest with 4 views of the ribs were obtained. There is no acute cardiopulmonary process. No pneumothorax is identified. No displaced rib fracture identified. IMPRESSION: No acute process. Reviewed, Interpreted and Dictated by Saulo Granado MD Transcribed by Cynthia Ocasio Authenticated and [facility]
== END ==
LOC: RAD 10:59
PROVIDERS: PCP Internal Medicine Adolescent Medicine; Visit Provider Internal Medicine Adolescent Medicine
DX: M79.642 Pain in left hand (principal); M25.532 Pain in left wrist; R07.81 Pleurodynia; W19.XXXA Unspecified fall, initial encounter
CPT/HCPCS: 71100; 71101; 73110; 73130

== ENCOUNTER → 2023-04-21 14:15 | Outpatient (CLI) | payer MEDICARE, SELFPAY ==
--- NOTE | 2023-04-21 14:22 | XR_ITS ---
FINAL REPORT CLINICAL HISTORY: lt hand fx..fall COMPARISON: March 13, 2023 FINDINGS: AP, oblique, and lateral views of the left hand were obtained. The there is interval healing of the right fifth metacarpal fracture. There is multijoint degenerative disease. There is no new osseous abnormality. The soft tissues are normal. IMPRESSION: Interval healing of right fifth metacarpal fracture. Reviewed, Interpreted and Dictated by Dolores Valdez MD Transcribed by Tye Zuluaga Authenticated and [facility]
== END ==
LOC: RAD 14:18
PROVIDERS: PCP Internal Medicine Adolescent Medicine; Visit Provider Orthopaedic Surgery
DX: S62.307A Unspecified fracture of fifth metacarpal bone, left hand, initial encounter for closed fracture (principal)
CPT/HCPCS: 73130

== ENCOUNTER 2024-10-18 17:55 | Observation (INO) | payer MEDICARE, SELFPAY ==
[2024-10-18 18:00] VITALS: BMI 28.3
--- NOTE | 2024-10-18 18:10 | PC.NURSE ---
arrived by w/c from ED
[2024-10-18 19:03] VITALS: BP 133/84; PULSE 78; RESP 18; TEMP 36.8; O2SAT 93
--- NOTE | 2024-10-18 19:03 | XR_ITS ---
PROCEDURE INFORMATION: Exam: XR Chest Exam date and time: 10/18/2024 9:41 PM Age: 84 years old Clinical indication: Other: Lung crackles TECHNIQUE: Imaging protocol: Radiologic exam of the chest. Views: 2 views. COMPARISON: 1. CR XR RIBS RT MIN 3V W CXR1V 03/13/2023 11:16 AM 2. CR XR CHEST 2V 03/13/2020 1:48 PM FINDINGS: Lungs: Unremarkable. No consolidation. Pleural spaces: Unremarkable. No pleural effusion. No pneumothorax. Heart/Mediastinum: Unremarkable. No cardiomegaly. Bones/joints: Unremarkable. IMPRESSION: Stable chest x-ray with no acute disease.
--- NOTE | 2024-10-18 19:16 | EXP.HP ---
History of Present Illness *Admission Date: 10/18/24 *Reason for visit:: Weakness/fatigue/cough/frequent falls *History of present illness: 84-year-old white male with diabetes with significant complications of diabetic peripheral arterial disease, diabetic neuropathy, prior toe amputations, significant sensory deficits, whose had progressive problems with some forgetfulness and confusion at home with his . His stepdaughter reports that over the past couple of weeks has become worse. We have treated him once for acute bronchitis with azithromycin, he is also been found to have a UTI-has a history of urinary retention and is on medication for this-and we recently started Cipro empirically during the spell of bad weather when he was confined to his home and could not get out to be examined. He was able to get to the office today and he was found to be confused, has a new sacral decubitus ulcer, coughing, congested and had crackles in his lung collins. Given this presentation on antibiotics, his advanced age, and multiple comorbidities and frequent falls with extremity bruising and arm laceration, I elected to admit him to the hospital for IV antibiotics, pulmonary toilet and further observation. [facility] Disclaimer: The information contained in this section may have been updated after the patient was seen, as this information can be updated by other users. 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 Encounter for wound care Keratosis Postoperative wound dehiscence Nail dystrophy Diabetic foot Blood in stool Obstructed Loera catheter Indwelling urethral catheter present Hypomagnesemia Constipation Cellulitis of toe of left foot Gas gangrene of foot Diabetes mellitus COVID-19 UGIB (upper gastrointestinal bleed) SIRS (systemic inflammatory response syndrome) Osteomyelitis Surgical History Status post foot surgery Social History Smoking Status: Former smoker alcohol intake: never substance use type: denies use current occupational status: retired Travel in the last 8 weeks: None household members: spouse housing: house current occupational exposures/hazards: No caffeine: Yes Have you lived/traveled outside US in past 30 days?: No Contact w/someone who lives/traveled outside US past 30 days?: No Exposure to someone with infectious disease in past 14 days?: No Do you have a fever (greater than 100.4 F or 38 C)?: No Have you tested positive for COVID-19: No Exposed to someone with COVID-19 in past 14 days?: No Do you have a sore throat?: No Do you have a cough?: No Do you have any weakness?: No Do you have any diarrhea?: No Are you experiencing any unusual bleeding?: No Do you have any muscle aches/pain?: No Do you have any abdominal pain?: No Are you experiencing loss of taste or smell?: No Other Medical History Have you received the Flu Vaccine for this season: Yes Have you received the Pneumonia Vaccine: Yes Review of Systems Review of Systems Review of systems:: pertinent systems reviewed and negative unless documented below Review of systems (narrative): Patient reports that he is feeling poorly but really cannot give a specific answer. Does report some coughing. Reports that he is globally weak and is unsteady. 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 02/03/21 10/18/24 History tamsulosin 0.4 mg capsule 0.4 mg PO HS prostate 03/07/21 10/18/24 History escitalopram oxalate 10 mg tablet 10 mg PO DAILY Depression 03/08/21 10/18/24 History insulin aspart U-100 100 unit/mL 90 unit SQ DAILY diabetes 07/31/22 10/18/24 History subcutaneous solution (Novolog U-100 Insulin aspart) acetaminophen 325 mg capsule 650 mg (2 x 325 mg) PO QID PRN 08/05/22 10/18/24 Rx (Tylenol) fever #60 caps aspirin 81 mg capsule 81 mg PO DAILY #30 caps 08/05/22 10/18/24 Rx mupirocin 2 % topical ointment 1 applic topical BID infection 14 06/20/24 10/18/24 Rx days #15 grams vibegron 75 mg tablet (Gemtesa) 75 mg PO DAILY 07/04/24 10/18/24 History New Prescriptions to Start Prescriptions: Allergies Allergy/AdvReac Type Severity Reaction Status Date / Time No Known Allergies Allergy Verified 09/19/24 13:41 Exam Data for Last 24 hours Vital signs and Labs for Last 24 Hours: Temp Pulse Resp BP Pulse Ox O2 Del Method 98.3 F 78 18 133/84 93 L Room Air 10/18/24 19:03 10/18/24 19:03 10/18/24 19:03 10/18/24 19:03 10/18/24 19:03 10/18/24 19:03 I & O for Last 24 hours: Intake & Output 10/16/24 10/17/24 10/18/24 10/19/24 11:59 11:59 11:59 11:59 Weight 186 lb Constitutional Constitutional: mild distress, cachectic, chronically ill appearing and disheveled *Routine HEENT Exam Head: Present normocephalic Eye: Present EOMI ENT: Present mucous membranes moist and nares patent *Routine Neck Exam Neck: Present supple *Routine Respiratory Exam Respiratory: Present rhonchi, wheezes and crackles *Routine Cardiovascular Exam Cardiovascular: Present RRR *Routine Abdominal Exam Abdominal: Present soft *Routine Rectal Exam Rectal:: deferred *Routine Genitalia Exam Genitalia:: deferred *Routine Extremities Exam Extremities: Present amputation (Previously noted toe amputations) Comments: Very poor pulses. Trace ankle edema. Multiple lacerations on left arm, multiple abrasions, poor skin turgor *Routine Skin Exam Skin: Present scars and ecchymosis Comments: Has a bilateral stage III decubitus ulcer with some foul-smelling exudate on either side of the gluteal cleft, approximately 10 cm x 5 cm oval-shaped on either side. *Routine Neurological Exam Neurological: Present alert Comments: Confused to date and exact location. Confused to time. Is able to ambulate with a great deal of difficulty with full support leaning on his walker. Has some truncal ataxia when he walks. Globally weak in all 4 extremities but symmetric power Assessment and Plan *Assessment and plan (1) Community acquired pneumonia: Problem Comment: Failed outpatient therapy with azithromycin and quinolones. Start ceftriaxone. Check formal chest x-ray Status: Acute Qualifiers: Laterality: unspecified laterality Qualified Code(s): J18.9 - Pneumonia, unspecified organism Category: Medical Code(s): J18.9 - Pneumonia, unspecified organism (2) Frequent falls: Problem Comment: PT/OT evaluation. I think patient would benefit from skilled care stay. Significant balance problems and multifactorial problems regarding his gait Status: Acute Category: Medical Code(s): R29.6 - Repeated falls (3) Sacral decubitus ulcer, stage III: Problem Comment: PT evaluation for wound care. Significant risk for infection and worsening problems given his poor nutrition Status: Acute Category: Medical Code(s): L89.153 - Pressure ulcer of sacral region, stage 3 (4) Peripheral arterial disease: Problem Comment: Multiple comorbidity issues. Continue current therapy Status: Acute Category: Medical Code(s): I73.9 - Peripheral vascular disease, unspecified (5) Diabetes mellitus type 2 with peripheral artery disease: Problem Comment: Notes above, sliding scale insulin. Status: Acute Category: Medical Code(s): E11.51 - Type 2 diabetes mellitus with diabetic peripheral angiopathy without gangrene (6) Diabetic peripheral neuropathy: Status: Acute Category: Medical Code(s): E11.42 - Type 2 diabetes mellitus with diabetic polyneuropathy Plan Admit as noted above Plan noted and orders. PT/OT/care management evaluation. Check labs, x-ray, EKG, change therapy based on these issues. DVT prophylaxis and PPI on board
[2024-10-18 19:19] LABS: Basophils # 0.1 K/mm3 (0-0.2); Basophils % 0.9 % (0.1-2.0); Eosinophils # 0.2 K/mm3 (0.0-0.4); Eosinophils % 2.4 % (0.1-12.0); Hematocrit 37.1 % (42.0-52.0); Hemoglobin 12.7 g/dL (14.1-18.0); Lymphocytes # 1.7 K/mm3 (0.7-4.5); Lymphocytes % 17.6 % (10-50); Mean Corpuscular HGB Conc 34.2 g/dL (31.8-35.4); Mean Corpuscular Hemoglobin 29.5 pg (27.0-31.2); Mean Corpuscular Volume 86.1 fl (80-94); Mean Platelet Volume 9.4 fl (7.4-10.4); Monocytes % 9.9 % (1.7-9.3); Neutrophils # 6.7 K/mm3 (1.8-7.8); Neutrophils % 68.5 % (37.0-80.0); Platelet Count 332 K/mm3 (142-424); Red Blood Count 4.31 M/mm3 (4.60-6.20); White Blood Count 9.8 K/mm3 (4.8-10.8)
[2024-10-18 19:23] LABS: Alanine Aminotransferase 21 U/L (12-78); Albumin Level 3.8 g/dl (3.5-5.0); Albumin/Globulin Ratio 1.4 (1.1-1.8); Alkaline Phosphatase 110 U/L (38-126); Anion Gap 10.5 mEq/L (5-15); Aspartate Amino Transferase 30 U/L (17-59); Bilirubin,Total 0.6 mg/dl (0.2-1.3); Blood Urea Nitrogen 28 mg/dl (9-20); Calcium 9.4 mg/dl (8.4-10.2); Carbon Dioxide 30 mmol/L (22.0-30.0); Chloride 101 mmol/L (98-107); Creatinine Clearance Estimated 68 mL/min (50-200); Estimated Glomerular Filt Rate 93 ml/min (>60); GFR (African American) 112 ML/MIN (>60); Globulin 2.7 g/dL (1.3-3.2); Glucose 211 mg/dl (74-100); Magnesium 1.6 mg/dl (1.6-2.3); Potassium 4.5 mmoL/L (3.5-5.1); Sodium 137 mmol/L (136-145); Total Protein,Serum 6.5 g/dl (6.3-8.2)
--- NOTE | 2024-10-18 19:27 | HMH.ITSTN ---
pt unable to stand per nurse. Capri, RN to call back with instructions from Dr. Grey.
[2024-10-18 19:29] LABS: Lactic Acid 1.1 mmol/L (0.7-2.1)
[2024-10-18 19:58] LABS: Free Thyroxine Index 2.3 ug/dL (5.93-13.13); T4 (Thyroxine) 5.7 ug/dl (5.53-11.0); Triiodothryronine (T3) Uptake 40 % (23.5-40.5)
[2024-10-18 20:00] VITALS: BP 133/55; PULSE 71; RESP 16; TEMP 36.8; O2SAT 94
[2024-10-18 20:05] LABS: Hemoglobin A1C 9.2 % (4.0-6.0)
[2024-10-18 20:12] LABS: Thyroid Stimulating Hormone 2.32 uIU/mL (0.465-4.68)
[2024-10-18 20:31] LABS: Vitamin B12 963 pg/mL (239-931)
[2024-10-18] MEDS: ATORVASTATIN 40MG TABLET 80 MG PO (20:48)
[2024-10-18] MEDS: 0.9 % SODIUM CHLORIDE 1000ML 1,000 ML 50 ML IV (20:48)
[2024-10-18] MEDS: PANTOPRAZOLE 40MG TABLET 40 MG PO (20:49)
[2024-10-18] MEDS: TAMSULOSIN 0.4MG CAPSULE 0.4 MG PO (20:49)
[2024-10-18 20:55] LABS: Ammonia < 9 umol/L (9-30)
[2024-10-18] MEDS: humaLOG 100 UNITS/ML 10ML VIAL (SSI) SUBCUT (21:31)
--- NOTE | 2024-10-18 21:40 | PC.NURSE ---
Patient left floor with radiology at 21:38.
--- NOTE | 2024-10-18 21:50 | PC.NURSE ---
PAtient arrived back to floor from Radiology at 21:49.
[2024-10-18 23:14] LABS: POC Glucose,Bedside 320 (70-110)
--- NOTE | 2024-10-18 23:26 | PC.WOUNDNOTE ---
sacral wound scab on left arm
[2024-10-19 04:00] VITALS: BP 114/57; PULSE 71; RESP 16; TEMP 36.6; O2SAT 92; BMI 26.4
[2024-10-19] MEDS: humaLOG 100 UNITS/ML 10ML VIAL (SSI) SUBCUT ×4 (05:52→20:45)
[2024-10-19 06:01] LABS: POC Glucose,Bedside 205 (70-110)
--- NOTE | 2024-10-19 06:15 | CA_ITS ---
FINAL REPORT CLINICAL HISTORY: Ex-smoker, Confusion, DM, Occlusive PAD, HLD COMPARISON: None FINDINGS: RIGHT CAROTID: CCA PSV -38 cm/sec ICA PSV -55 cm/sec ICA/CCA PSV ratio -1.45. Comments: Mild plaque disease is noted. LEFTCAROTID: CCA PSV -46. cm/sec ICA PSV -57. cm/sec ICA/CCA PSV ratio -1.24. Comments: Mild plaque disease is noted. Antegrade flow is seen within the vertebral arteries. IMPRESSION: Carotid stenosis classified less than 50% Reviewed, Interpreted and Dictated by Saulo Grandao MD Transcribed by Anu Gruber Authenticated and [facility]
--- NOTE | 2024-10-19 06:20 | ECG_ITS ---
APPROVED REPORT Exam: Resting ECG HR:71 bpm ECG Measurements Heart Rate 71 AXES HI 161 P 69 QRSd 95 QRS 66 QT 410 T 57 QTc 432 Conclusion SINUS RHYTHM NONSPECIFIC T-WAVE ABNORMALITY BORDERLINE ECG UNCONFIRMED REPORT Electronically signed by : Subhash Grey MD 10/21/2024 09:19:44
[2024-10-19 07:08] LABS: Basophils # 0.1 K/mm3 (0-0.2); Basophils % 0.6 % (0.1-2.0); Eosinophils # 0.2 K/mm3 (0.0-0.4); Eosinophils % 2.5 % (0.1-12.0); Hematocrit 34.7 % (42.0-52.0); Hemoglobin 11.8 g/dL (14.1-18.0); Lymphocytes # 1.7 K/mm3 (0.7-4.5); Lymphocytes % 17.6 % (10-50); Mean Corpuscular Hemoglobin 29.6 pg (27.0-31.2); Mean Platelet Volume 9.1 fl (7.4-10.4); Monocytes % 10.9 % (1.7-9.3); Neutrophils # 6.4 K/mm3 (1.8-7.8); Neutrophils % 67.3 % (37.0-80.0); Platelet Count 299 K/mm3 (142-424); Red Blood Count 3.99 M/mm3 (4.60-6.20); White Blood Count 9.5 K/mm3 (4.8-10.8)
[2024-10-19 07:15] LABS: Anion Gap 8.8 mEq/L (5-15); Blood Urea Nitrogen 21 mg/dl (9-20); Calcium 8.9 mg/dl (8.4-10.2); Carbon Dioxide 28 mmol/L (22.0-30.0); Chloride 104 mmol/L (98-107); Creatinine Clearance Estimated 64 mL/min (50-200); Estimated Glomerular Filt Rate 108 ml/min (>60); GFR (African American) 131 ML/MIN (>60); Glucose 202 mg/dl (74-100); Potassium 3.8 mmoL/L (3.5-5.1); Sodium 137 mmol/L (136-145)
--- NOTE | 2024-10-19 07:34 | MR_ITS ---
FINAL REPORT TECHNIQUE: Multiplanar MR without contrast CLINICAL HISTORY: MS CHANGES, CONFUSION COMPARISON: 03/05/2022 FINDINGS: Diffusion sequences show no signal abnormality to indicate acute infarct. Scattered periventricular white matter signal changes are seen compatible with mild chronic ischemic gliotic disease, stable when compared to the prior exam of 2021. Mild generalized atrophy is present, also stable. No mass, hemorrhage or edema is seen. Ventricles are normal. Major vascular flow voids are intact. There are T2 hyperintense lesions in the parietal bones bilaterally, larger on the right than on the left, measuring up to 17 mm in size, and is also stable since the prior exam. The lack of interval growth suggest that these are either hemangiomas or other benign etiologies. IMPRESSION: No acute findings or mass. Chronic ischemic microvascular change, stable when compared to the prior exam of 2021. Reviewed, Interpreted and Dictated by Saulo Granado MD Transcribed by Addie Swartz Authenticated and [facility]
[2024-10-19 08:00] VITALS: BP 133/63; PULSE 72; RESP 17; TEMP 36.6; O2SAT 93
--- NOTE | 2024-10-19 08:37 | P.PN_ITS ---
Subjective *Date: 10/19/24 *Time: 08:37 Interval history: Patient did well overnight, slept well. No complaints of pain this morning. Ate a very good breakfast. Medical Exam Vital signs and Labs for Last 24 Hours: Vital Signs Temp Pulse Resp BP Pulse Ox O2 Del Method 10/19/24 08:00 97.8 F 72 17 133/63 93 L Room Air 10/19/24 06:46 Room Air 10/19/24 05:00 Room Air 10/19/24 04:00 97.8 F 71 16 114/57 L 92 L Room Air 10/19/24 03:00 Room Air 10/19/24 01:00 Room Air 10/18/24 23:00 Room Air 10/18/24 21:00 Room Air 10/18/24 20:00 71 16 94 L Room Air 10/18/24 20:00 98.2 F 71 16 133/55 L 94 L Room Air 10/18/24 19:03 98.3 F 78 18 133/84 93 L Room Air Intake and Output 10/18/24 10/19/24 10/19/24 19:59 03:59 11:59 Intake Total 200 / 560 360 / 560 Output Total 350 / 350 Balance -150 / 210 360 / 210 Intake: Intake, Oral Amount 360 / 360 Intake, Total IV Amount 200 / 200 0.9 % Sodium Chloride 1000ML 1, 200 / 200 000 ml @ 50 mls/hr IV .Q20H [facility] Rx#:[id number] Output: Output, Urine Amount 350 / 350 Other: Number of Unmeasured Voids 1 Weight 186 lb 174 lb 12.8 oz Patient Weight 10/19/24 11:59 Weight 174 lb 12.8 oz Laboratory Results - last 24 hr 10/18/24 18:30: WBC 9.8, RBC 4.31 L, Hgb 12.7 L, Hct 37.1 L, MCV 86.1, MCH 29.5, MCHC 34.2, RDW 14.0, Plt Count 332, MPV 9.4, Neut % (Auto) 68.5, Lymph % (Auto) 17.6, [place] % (Auto) 9.9 H, Eos % (Auto) 2.4, Baso % (Auto) 0.9, Neut # (Auto) 6.7, Lymph # (Auto) 1.7, [place] # (Auto) 1.0, Eos # (Auto) 0.2, Baso # (Auto) 0.1, Sodium 137, Potassium 4.5, Chloride 101, Carbon Dioxide 30, Anion Gap 10.5, BUN 28 H, Creatinine 0.80, Estimated Creat Clear 68, Estimated GFR 93, Est GFR ( Amer) 112, Glucose 211 H, Hemoglobin A1c 9.2 H, Lactate 1.1, Calcium 9.4, Magnesium 1.6, Total Bilirubin 0.6, AST 30, ALT 21, Alkaline Phosphatase 110, Total Protein 6.5, Albumin 3.8, Globulin 2.7, Albumin/Globulin Ratio 1.4, Vitamin B12 963 H, TSH 2.32, Free T4 Index 2.3 L, Thyroxine (T4) 5.7, T3 Uptake 40 10/18/24 20:25: Ammonia < 9 L 10/18/24 20:52: POC Glucose 320 H* 10/19/24 05:50: POC Glucose 205 H 10/19/24 06:00: WBC 9.5, RBC 3.99 L, Hgb 11.8 L, Hct 34.7 L, MCV 87.0, MCH 29.6, MCHC 34.0, RDW 14.0, Plt Count 299, MPV 9.1, Neut % (Auto) 67.3, Lymph % (Auto) 17.6, [place] % (Auto) 10.9 H, Eos % (Auto) 2.5, Baso % (Auto) 0.6, Neut # (Auto) 6.4, Lymph # (Auto) 1.7, [place] # (Auto) 1.0, Eos # (Auto) 0.2, Baso # (Auto) 0.1, Sodium 137, Potassium 3.8, Chloride 104, Carbon Dioxide 28, Anion Gap 8.8, BUN 21 H, Creatinine 0.70, Estimated Creat Clear 64, Estimated GFR 108, Est GFR ( Amer) 131, Glucose 202 H, Calcium 8.9 I & O for Labs for Last 24 Hours: Intake & Output 10/16/24 10/17/24 10/18/24 10/19/24 11:59 11:59 11:59 11:59 Intake Total 560 / 560 Output Total 350 / 350 Balance 210 / 210 Weight 174 lb 12.8 oz Comment:: Patient is alert, oriented x 2. Knows he is in the hospital. Anterior lung collins have good air movement, some scattered rhonchi but clear. Heart rate regular. Abdomen soft and nontender. Able to move all extremities. Globally weak. I did not look at his sacral decubitus today-pending PT evaluation. Distal extremities have poor perfusion as previously noted but no active wounds. Previously noted amputation Assessment and Plan *Assessment and plan (1) Community acquired pneumonia: Problem Comment: Failed outpatient therapy with azithromycin and quinolones. Start ceftriaxone. Check formal chest x-ray Status: Acute Qualifiers: Laterality: unspecified laterality Qualified Code(s): J18.9 - Pneumonia, unspecified organism Category: Medical Code(s): J18.9 - Pneumonia, unspecified organism (2) Frequent falls: Problem Comment: PT/OT evaluation. I think patient would benefit from skilled care stay. Significant balance problems and multifactorial problems regarding his gait Status: Acute Category: Medical Code(s): R29.6 - Repeated falls (3) Sacral decubitus ulcer, stage III: Problem Comment: PT evaluation for wound care. Significant risk for infection and worsening problems given his poor nutrition Status: Acute Category: Medical Code(s): L89.153 - Pressure ulcer of sacral region, stage 3 (4) Peripheral arterial disease: Problem Comment: Multiple comorbidity issues. Continue current therapy Status: Acute Category: Medical Code(s): I73.9 - Peripheral vascular disease, unspecified (5) Diabetes mellitus type 2 with peripheral artery disease: Problem Comment: Notes above, sliding scale insulin. Status: Acute Category: Medical Code(s): E11.51 - Type 2 diabetes mellitus with diabetic peripheral angiopathy without gangrene (6) Diabetic peripheral neuropathy: Status: Acute Category: Medical Code(s): E11.42 - Type 2 diabetes mellitus with diabetic polyneuropathy Plan Fortunately, labs and chest x-ray look pretty good. MRI pending given his confusion and frequent falls. PT/OT/wound care evaluation pending. Social work consult for possible placement given his significant weakness, age- related debility and significant vascular/neurologic disease Patient notes that he does not wish to be on artificial life support or a ve ntilator-will have nursing staff go over the DNR issues more in detail later
[2024-10-19] MEDS: PROPYLTHIOURACIL 50MG TABLET 50 MG PO ×2 (08:52→20:45)
[2024-10-19] MEDS: ASPIRIN EC 81MG TABLET 81 MG PO (08:52)
[2024-10-19] MEDS: ENOXAPARIN 40MG/0.4ML SYRINGE 40 MG SUBCUT (08:52)
[2024-10-19] MEDS: CITALOPRAM 20MG TABLET 20 MG PO (08:52)
[2024-10-19 09:38] VITALS: BMI 26.4
--- NOTE | 2024-10-19 10:30 | HMH.PTEV ---
Physical Therapy Evaluation Rehab PT IP Evaluation Start: 10/18/24 19:10 Freq: ONCE Status: Active Protocol: Document 10/19/24 10:24 DOROTHY (Rec: 10/19/24 10:30 PHOJOSE MARTIN [id number]) Subjective/History History History 84-year-old white male with diabetes with significant complications of diabetic peripheral arterial disease, diabetic neuropathy, prior toe amputations, significant sensory deficits, whose had progressive problems with some forgetfulness and confusion at home with his . Pt failed outpatient treatment for respiratory illness and now adm to hospital with PNA. He reports he lives with his , no steps required at home and he generally is independent with all mobility using a RW as needed. Subjective Subjective He reports no c/o this am and agrees to mobility assessment. Rehab PT IP Eval Objective Appearance Patient Behavior Appropriate Patient Orientation Person,Time Difficulty following instructions none Speech Pattern Clear Ambulation Patient Able to Ambulate Yes Ambulation Observation IP General Gait Pattern Observation Wide Based Gait,Shuffling Step Ambulation Distance (feet) 30 Ambulation Assistive Device Rolling Walker Ambulation Ability Minimal x 1 (25% assist) Balance Ability to Arise Able, uses arms to help Sitting Balance Steady, safe Standing Balance Unsteady Dynamic Sitting Balance Ability Good Dynamic Standing Balance Ability Poor Transfers Bed Transfer Ability Contact Guard/Hand Hold Chair Transfer Ability Minimal x 1 (25% assist) Sit to Stand Bed Transfer Ability Minimal x 1 (25% assist) Sit to Stand Chair Transfer Ability Minimal x 1 (25% assist) ROM All Extremities PT ROM Status WFL MMT All Extremities PT MMT WFL Rehab PT IP prob,goals,plan Problems Date of Evaluation: 10/19/24 PT IP Problems Bed Mobility,Transfers,Gait Rehab Potential Rehab Potential Good Plan PT Intervention Plan Bed Mobility,Transfers,Gait, Therapeutic Exercise PT Plan Frequency Daily Duration LOS Discharge Goals Bed Transfer Ability Supervision/Stand by Sit to Stand Chair Transfer Ability Contact Guard/Hand Hold Ambulation Assistive Device Rolling Walker Ambulation Distance (feet) 50 Discharge Plan PT Discharge Plan Pt presents very unsteady with static and dynamic standing balance at this time. Pt is most appropriate for rehab placement currently once medically stable for d/c. Skilled inpatient therapy services are indicated to improve transfers, increase ambulation, and improve balance in order to return pt to [facility]. Eval Complexity Eval Charge Codes 41365 - High Complexity PHYSICIAN CERTIFICATION: I certify the specified therapy services for Aurelio Patton Jr are required, authorized, and reviewed every 30 days.
--- NOTE | 2024-10-19 10:34 | HMH.PTWOUND ---
Rehab Inpt Wound Evaluation Rehab IP Wound Evaluation Start: 10/19/24 10:22 Freq: ONCE Status: Active Protocol: Document 10/19/24 10:30 DOROTHY (Rec: 10/19/24 10:34 PHOJOSE MARTIN [id number]) Rehab PT Wound Assessment Subjective Subjective 84-year-old white male with diabetes with significant complications of diabetic peripheral arterial disease, diabetic neuropathy, prior toe amputations, significant sensory deficits, whose had progressive problems with some forgetfulness and confusion at home with his . Pt failed outpatient treatment for respiratory illness and now adm to hospital with PNA. He reports he lives with his , no steps required at home and he generally is independent with all mobility using a RW as needed. Pt presents with sacral pressure injury upon admission. Wound Sacrum Wound Type Pressure Ulcer Is This a Chronic Wound No Wound Staging Stage II Query Text:Stage I - Unbroken, red skin, no blanching. Stage II - Skin broken, superficial skin loss involving epidermis alone or also dermis. Partial loss of skin layers. Stage III - Pressure area involves epidermis, dermis and subcutaneous tissue, full thickness skin loss. Stage IV - Pressure area involves epidermis, subcutaneous tissue, bone and other supportive tissue. Full thickness skin loss with extensive destruction of underlying tissue and structures. Wound Length (cm) 6.1 Wound Width (cm) 8.0 Wound Depth (cm) 0.1 Wound Bed Appearance Beefy Red Percentage Granulated (%) 100 Wound Margins Description Well Defined Surrounding Tissue Appearance Purple Sage Wound Drainage Description Sanguineous Drainage Amount Small Wound Topical Solution/Irrigant Saline Irrigant Primary Dressing Composite Comment optifoam gentle sacrum Wound Debridement Method Gauze,Mechanical Wound Debridement Amount of Tissue None Removed Dressing Change Patient Tolerance Tolerated Well Plan/Recommendation Comment Currently pt wound is well covered and being treated appropriately by ns staff. Will follow for assistance with dressing changes as needed and possible further need for sharp excisional debridement (which is not currently needed.) Nsg staff following appropriate pressure relief per protocols at this time. Eval Complexity Eval Charge Codes 84963 - High Complexity PHYSICIAN CERTIFICATION: I certify the specified therapy services for Aurelio Patton are required, authorized, and reviewed every 30 days.
--- NOTE | 2024-10-19 10:53 | HMH.OTEV ---
OT Inpatient Evaluation Rehab OT IP Evaluation Start: 10/18/24 19:06 Freq: ONCE Status: Active Protocol: Document 10/19/24 10:47 [facility] (Rec: 10/19/24 10:52 [facility] [id number]) Rehab OT IP Assessment Subjective History Pt oriented x 3 on arrival. Pt agreeable to engage in therapy evaluation. Pt admitted on 10/18/24 due to weakness, PNA, and sacral wound. History and physical: 84-year-old white male with diabetes with significant complications of diabetic peripheral arterial disease, diabetic neuropathy, prior toe amputations, significant sensory deficits, whose had progressive problems with some forgetfulness and confusion at home with his . His stepdaughter reports that over the past couple of weeks has become worse. We have treated him once for acute bronchitis with azithromycin, he is also been found to have a UTI-has a history of urinary retention and is on medication for this- and we recently started Cipro empirically during the spell of bad weather when he was confined to his home and could not get out to be examined. He was able to get to the office today and he was found to be confused, has a new sacral decubitus ulcer, coughing, congested and had crackles in his lung collins. Given this presentation on antibiotics, his advanced age, and multiple comorbidities and frequent falls with extremity bruising and arm laceration, I elected to admit him to the hospital for IV antibiotics, pulmonary toilet and further observation. Subjective I use a walker. Prior to being in the hospital , pt lived at home with his . Pt claims he is normally independent with ADLs , but is dependent upon for completion of IADLs. Pt does use a rolling walker during functional transfers. Pt no longer drives. Objective Patient Orientation Person,Place,Birthday Right Upper Extremity Gross ROM WFL Left Upper Extremity Gross ROM WFL Bed Mobility bed mobility-scooting,bed mobility - supine/sit Assist Level Minimal x 1 (25% assist) Transfer Training Sit/Stand Transfer Assist Level Minimal x 1 (25% assist) Lower Body Dressing Ability Maximum Assistance Performing Toilet Hygiene Ability Maximum Assistance Overall Commode/Toilet Transfer Ability Minimal Assistance Commode/Toilet Transfer Technique Sit to/from Ambulatory Commode/Toilet Transfer Assistive Grab Bars Devices Rehab OT IP prob,goals,plan Problems Date of Evaluation: 10/19/24 OT IP Problems Bed Mobility,Transfers,Balance ,Self care,Safety Rehab Potential Rehab Potential Good Equipment Needs Assistive Devices Rolling / Wheeled Walker Plan OT intervention Plan Bed Mobility,Transfers,Balance ,Self care,Safety,Therapeutic Exercise OT Plan Frequency Daily Duration LOS Discharge Goals Bed Mobility Ability Standby Assistance Sit to Stand Chair Transfer Ability Contact Guard/Hand Hold Chair Transfer Ability Contact Guard/Hand Hold Chair Transfer Technique Sit to/from Ambulatory Chair Transfer Assistive Devices Rolling Walker Lower Body Dressing Ability Minimal Assistance Upper Body Dressing Ability Contact Guard Bathing Ability Moderate Assistance Performing Toilet Hygiene Ability Minimal Assistance Overall Commode/Toilet Transfer Ability Minimal Assistance Commode/Toilet Transfer Technique Sit to/from Ambulatory Commode/Toilet Transfer Assistive Raised Toilet Seat,Grab Bars Devices Oral Care Assist Minimal Assistance Decrease in Endurance Yes Discharge Plan OT Discharge Plan Pt will continue to be seen for OT services while at [facility]. Pt would benefit most from short term rehab at SNF following hospital stay. Continued skilled therapy is important in order for patient to improve strength, safety, endurance, ADL independence, and functional transfers to reach PLOF. Eval Complexity Eval Charge Codes 94140 - Moderate Complexity PHYSICIAN CERTIFICATION: I certify the specified therapy services for Aurelio Patton Jr are required, authorized, and reviewed every 30 days.
--- NOTE | 2024-10-19 10:59 | HMH.ITSTN ---
went to get patient for MRI, he has an insulin device and sensor that he did not want to take off. He wants to wait until his arrives to decide if he wants to do exam.
[2024-10-19 11:30] VITALS: BP 140/71; PULSE 74; RESP 16; TEMP 36.8; O2SAT 91
[2024-10-19 12:08] LABS: POC Glucose,Bedside 282 (70-110)
--- NOTE | 2024-10-19 12:25 | HMH.PHAINT1 ---
Pharmacy Intervention Comments: VERIFIED MEDICATIONS WITH OUTPATIENT PHARMACY AND CONFIRMED MEDICATIONS WITH PATIENT.
--- NOTE | 2024-10-19 12:56 | HMH.ITSTN ---
spoke with RYAN Gaona. He is getting an update on if the patient wants to remove the insulin device to have the exam. will report back to mri.
--- NOTE | 2024-10-19 13:08 | PC.NURSE ---
discussed mri order with patient. pt has insulin pump in place that needs to be removed before mri can be performed. pt does not want to remove pump until discussion with .
--- NOTE | 2024-10-19 13:09 | SW/DCPLANNER ---
Addendum entered by Nadya Quispe 10/20/24 12:00: Per Angeline this patient has been approved SNF level of care. I will update MD, patient and family. Addendum entered by Nadya Quispe 10/20/24 09:04: Angeline w/ [facility] stated they can accept this patient and auth will be started this AM. I have updated patient's family and MD. Addendum entered by Nadya Nodaway 10/19/24 13:26: [facility] is not currently accepting new admissions: I will update patient and family. Information has been faxed to [facility]. Original Note: I spoke w/ this patient regarding plans once medically stable for discharge. PT/OT evaluated patient and recommended SNF level of care. Patient is agreeable to placement and asked that I call and discuss facilities w/ his . Per she would prefer patient be at [facility] or [facility]. Patient information has been faxed to both facilities. I will continue to follow up w/ patient, family, MD and facilities. Pending no setbacks patient may be ready for discharge tomorrow.
--- NOTE | 2024-10-19 13:09 | HMH.ITSTN ---
spoke with RYAN Gaona, patient does not want to do exam at this time. RN will update MR staff if his decision changes.
[2024-10-19] MEDS: SODIUM CHLORIDE 3% 15ML NEB 3 ML IH (13:10)
[2024-10-19 13:11] VITALS: PULSE 82; RESP 18
--- NOTE | 2024-10-19 15:36 | PC.NURSE ---
aox4, very soft spoken and hoarse when he talks. MRI was completed. patient agreed to remove insulin pump. he is not requiring o2 support. ambulating with walker and standby assist. new dressing applied to wound on bottom.
[2024-10-19 16:00] VITALS: BP 144/75; PULSE 69; RESP 15; TEMP 36.4; O2SAT 93
[2024-10-19] MEDS: 0.9 % SODIUM CHLORIDE 1000ML 1,000 ML 50 ML IV (18:20)
[2024-10-19 20:00] VITALS: BP 152/65; PULSE 69; RESP 18; TEMP 36.6; O2SAT 96
[2024-10-19 20:01] LABS: POC Glucose,Bedside 314 (70-110)
[2024-10-19] MEDS: TAMSULOSIN 0.4MG CAPSULE 0.4 MG PO (20:45)
[2024-10-19] MEDS: ATORVASTATIN 40MG TABLET 80 MG PO (20:45)
[2024-10-19] MEDS: PANTOPRAZOLE 40MG TABLET 40 MG PO (20:46)
[2024-10-19 21:21] LABS: POC Glucose,Bedside 235 (70-110)
[2024-10-20] VITALS: BP 150/69; PULSE 62; RESP 18; TEMP 36.8; O2SAT 92
[2024-10-20 04:00] VITALS: BP 132/68; PULSE 74; RESP 16; TEMP 36.8; O2SAT 92; BMI 26.8
[2024-10-20] MEDS: humaLOG 100 UNITS/ML 10ML VIAL (SSI) SUBCUT ×2 (05:31→11:45)
[2024-10-20 07:56] VITALS: BP 116/66; PULSE 72; RESP 18; TEMP 36.7; O2SAT 92
[2024-10-20] MEDS: PROPYLTHIOURACIL 50MG TABLET 50 MG PO (08:56)
[2024-10-20] MEDS: ASPIRIN EC 81MG TABLET 81 MG PO (08:56)
[2024-10-20] MEDS: CITALOPRAM 20MG TABLET 20 MG PO (08:56)
[2024-10-20] MEDS: ENOXAPARIN 40MG/0.4ML SYRINGE 40 MG SUBCUT (08:56)
[2024-10-20 11:32] VITALS: BP 150/71; PULSE 74; RESP 16; TEMP 36.7; O2SAT 91
--- NOTE | 2024-10-20 12:58 | P.DS_ITS ---
General Admission date:: 10/18/24 Discharge date: 10/20/24 HPI HPI HPI: 84-year-old white male with diabetes with significant complications of diabetic peripheral arterial disease, diabetic neuropathy, prior toe amputations, significant sensory deficits, whose had progressive problems with some forgetfulness and confusion at home with his . His stepdaughter reports that over the past couple of weeks has become worse. We have treated him once for acute bronchitis with azithromycin, he is also been found to have a UTI-has a history of urinary retention and is on medication for this-and we recently started Cipro empirically during the spell of bad weather when he was confined to his home and could not get out to be examined. He was able to get to the office today and he was found to be confused, has a new sacral decubitus ulcer, coughing, congested and had crackles in his lung collins. Given this presentation on antibiotics, his advanced age, and multiple comorbidities and frequent falls with extremity bruising and arm laceration, I elected to admit him to the hospital for IV antibiotics, pulmonary toilet and further observation. Hospital Course Hospital Course Hospital Course: Patient was admitted to [facility]. X-ray showed that his lungs were clear. However given his abnormal lung exam and confusion I continued IV antibiotics because of community-acquired pneumonitis/bronchitis clinically. He responded well. IV fluids were given, MRI of head was done because of confusion which was unremarkable. With nursing care, PT he improved over the next couple of days. It was felt that he would benefit from skilled care both from his sacral decubitus ulcer perspective and from his global weakness. We transferred to the [facility] today for skilled care for PT/OT/speech therapy. Will need nutrition consult for his diabetes and his protein calorie malnut rition. Will need wound care for his sacral ulcer. Medicines will be as noted below. Will follow him up on a regular senior living rounds Please note that he establish DNR status in the hospital and this will need to continue at the senior living Exam Data for Last 24 hours Vital signs and Labs for Last 24 Hours: Temp Pulse Resp BP Pulse Ox O2 Del Method 98.1 F 74 16 150/71 H 91 L Room Air 10/20/24 11:32 10/20/24 11:32 10/20/24 11:32 10/20/24 11:32 10/20/24 11:32 10/20/24 11:32 Laboratory Results - last 24 hr 10/19/24 16:37: POC Glucose 314 H* 10/19/24 20:44: POC Glucose 235 H Temp Pulse Resp BP Pulse Ox 98.3 F 69 18 118/57 L 92 L 08/05/22 04:00 08/05/22 04:00 08/05/22 04:00 08/05/22 04:00 08/05/22 04:00 Laboratory Results - last 24 hr 08/04/22 12:03: POC Glucose 292 H 08/04/22 16:55: POC Glucose 272 H 08/04/22 19:59: POC Glucose 287 H 08/05/22 05:19: POC Glucose 214 H I & O for Last 24 hours: Intake & Output 10/18/24 10/19/24 10/20/24 10/21/24 11:59 11:59 11:59 11:59 Intake Total 560 / 560 1780 / 1780 Output Total 350 / 350 325 / 325 Balance 210 / 210 1455 / 1455 Weight 174 lb 9.698 oz 176 lb 14.4 oz Intake & Output 08/02/22 08/03/22 08/04/22 08/05/22 11:59 11:59 11:59 11:59 Intake Total 1140 / 1140 1480 / 1480 1380 / 1380 1190 / 1190 Output Total 1200 / 1200 2030 / 2030 800 / 800 0 / 0 Balance -60 / -60 -550 / -550 580 / 580 1190 / 1190 Weight 185 lb 9.009 oz 188 lb 6.4 oz 186 lb 6.484 oz Microbiology Reports for the Last 24 Hours: Microbiology 10/18/24 20:25 Blood Blood Culture - Preliminary NO GROWTH AFTER 24 HOURS 10/18/24 20:25 Blood Blood Culture - Preliminary NO GROWTH AFTER 24 HOURS Microbiology 07/30/22 20:20 Blood Blood Culture - Final NO GROWTH AFTER 5 DAYS 07/30/22 20:20 Blood Blood Culture - Final NO GROWTH AFTER 5 DAYS 08/01/22 08:04 Foot,Left - Left Gram Stain - Final 08/01/22 08:04 Foot,Left - Left Surgical Biopsy Culture - Preliminary 08/01/22 08:04 Toe,Left Second Gram Stain - Final 08/01/22 08:04 Toe,Left Second Wound Culture - Preliminary 08/01/22 08:04 Foot,Left - Left Bone Culture - Preliminary *Routine HEENT Exam Head: Present normocephalic and atraumatic Eye: Present EOMI ENT: Present mucous membranes moist *Routine Neck Exam Neck: Present supple and full ROM *Routine Respiratory Exam Respiratory: Present rhonchi Comments: Scattered rhonchi in all lung collins but good air movement *Routine Cardiovascular Exam Cardiovascular: Present RRR, Normal S1 and Normal S2 *Routine Abdominal Exam Abdominal: Present soft Comments: Scaphoid *Routine Rectal Exam Patient deferred: visual exam *Routine Exam Patient deferred: penile exam *Routine Extremities Exam Comments: Diminished pulses previously noted. Amputation sites clean and dry, no new foot lesions. No edema *Routine Skin Exam Skin: Present intact Comments: Scattered bruising with scattered bruising and a couple of abrasions on his arms from falls. No new wounds *Routine Neurological Exam Neurological: Present alert Comments: Hard of hearing. Oriented x 2, little fuzzy about the date, follows all commands, globally weak but no focal deficits Results Data Completed and Pending Labs on day of discharge: Labs from last 24 hours 10/19/24 10/19/24 20:44 16:37 POC Glucose 235 H 314 H* Preliminary micro results at discharge 10/18/24 20:25 Blood Culture - Preliminary Blood NO GROWTH AFTER 24 HOURS 10/18/24 20:25 Blood Culture - Preliminary Blood NO GROWTH AFTER 24 HOURS DS: Diagnosis Discharge Diagnosis (1) Community acquired pneumonia: Status: Acute Code(s): J18.9 - Pneumonia, unspecified organism Qualifiers: Laterality: unspecified laterality Qualified Code(s): J18.9 - Pneumonia, unspecified organism Problem details: Failed outpatient therapy with azithromycin and quinolones. Start ceftriaxone. Check formal chest x-ray (2) Frequent falls: Status: Acute Code(s): R29.6 - Repeated falls Problem details: PT/OT evaluation. I think patient would benefit from skilled care stay. Significant balance problems and multifactorial problems regarding his gait (3) Sacral decubitus ulcer, stage III: Status: Acute Code(s): L89.153 - Pressure ulcer of sacral region, stage 3 Problem details: PT evaluation for wound care. Significant risk for infection and worsening problems given his poor nutrition (4) Peripheral arterial disease: Status: Acute Code(s): I73.9 - Peripheral vascular disease, unspecified Problem details: Multiple comorbidity issues. 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 (6) Diabetic peripheral neuropathy: Status: Acute Code(s): E11.42 - Type 2 diabetes mellitus with diabetic polyneuropathy Meds Home Medications and Allergies Home Medications ?Medication ?Instructions ?Recorded ?Confirmed ?Type atorvastatin 80 mg tablet 80 mg PO HS 02/03/21 10/18/24 History propylthiouracil 50 mg tablet 50 mg PO BID 02/03/21 10/19/24 History tamsulosin 0.4 mg capsule 0.4 mg PO HS 03/07/21 10/19/24 History escitalopram oxalate 10 mg tablet 10 mg PO DAILY 03/08/21 10/18/24 History insulin aspart U-100 100 unit/mL 90 unit SQ DAILY 07/31/22 10/18/24 History subcutaneous solution (Novolog U-100 Insulin aspart) aspirin 81 mg capsule 81 mg PO DAILY #30 caps 08/05/22 10/19/24 Rx cefdinir 300 mg capsule 300 mg PO BID 5 days #10 caps 10/20/24 Rx New Prescriptions to Start Prescriptions: Subhash Damian Allergies Allergy/AdvReac Type Severity Reaction Status Date / Time No Known Allergies Allergy Verified 09/19/24 13:41 Discharge Plan Disposition Patient Disposition: [facility] Discharge Order Discharge Orders: Discharge Order (Routine); Ordered 10/20/24 Ordered By: Subhash Grey Follow up Plan Prescriptions/Medication Reconciliation: New cefdinir 300 mg capsule 300 mg PO BID 5 Days Qty: 10 0RF Continued tamsulosin 0.4 MG capsule 0.4 mg PO HS escitalopram oxalate 10 MG tablet 10 mg PO DAILY atorvastatin 80 MG tablet 80 mg PO HS propylthiouracil 50 MG tablet 50 mg PO BID insulin aspart U-100 [Novolog U-100 Insulin aspart] 100 unit/mL solution 90 unit SQ DAILY Patient Comments: INJECT 90 UNITS EACH DAY IN A VG DEVICE Rx Instructions: Using VG device aspirin 81 mg capsule 81 mg PO DAILY Qty: 30 0RF Problem Reconciliation Problems Reviewed?: Yes Patient Discharge Instructions ACTIVITY: Continue current activity Patient Instructions: Pneumonia--Adult, Skin Wound Print Language: Uzbek Providers Primary Care Provider: Subhash Grey Admit Provider: Subhash Grey Attending Provider: Subhash Grey
[2024-10-20 18:58] LABS: POC Glucose,Bedside 313 (70-110)
== END 2024-10-20 15:01 ==
PROVIDERS: Admitting Provider Internal Medicine Adolescent Medicine; PCP Internal Medicine Adolescent Medicine; Visit Provider Internal Medicine Adolescent Medicine
DX: J18.9 Pneumonia, unspecified organism (principal); L89.153 Pressure ulcer of sacral region, stage 3; R41.0 Disorientation, unspecified; R29.6 Repeated falls; I73.9 Peripheral vascular disease, unspecified; E11.51 Type 2 diabetes mellitus with diabetic peripheral angiopathy without gangrene; E11.42 Type 2 diabetes mellitus with diabetic polyneuropathy; E46 Unspecified protein-calorie malnutrition; E11.40 Type 2 diabetes mellitus with diabetic neuropathy, unspecified; E11.65 Type 2 diabetes mellitus with hyperglycemia; Z79.4 Long term (current) use of insulin; Z68.26 Body mass index [BMI] 26.0-26.9, adult; Z87.891 Personal history of nicotine dependence
CPT/HCPCS: G0379; 36415; 70551; 71046; 80048; 80053; 82140; 82607; 82962; 83036; 83605; 83735; 84436; 84443; 84479; 85025; 87040; 93005; 93880; 97163; 97166; 97530; 97535; G0378; J1650; J7030